=== PATIENT | female | born 1960 | race Caucasian/White ===

== ENCOUNTER 2018-07-20 12:26 | Inpatient (IN) | payer OTHER, SELFPAY ==
[2018-07-20] VITALS (16 sets, daily range): BP systolic 96–138; BP diastolic 35–75; PULSE 54–83; RESP 12–23; TEMP 36.1–37.8; O2SAT 94–100; BMI 19.5
--- NOTE | 2018-07-20 | PATH_ITS ---
[facility] Accession Number: [id number] . 01 Material submitted: . ILEOCECECTOMY . 02 Diagnosis: Colon, Ileocecectomy: 1. Colon with flat, pale edematous mucosa and mild reactive epithelial changes, consistent with changes secondary to volvulus. 2. Serrated lesion, favor sessile serrated adenoma. 3. Appendix with no diagnostic abnormality. 4. Negative for active, chronic and microscopic colitis. 5. Negative for malignancy. V/07/27/2018 . 02 Electronically signed: . Doris Montanez MD, Pathologist NPI- [id number] . 01 Gross description: . Received in formalin, labeled ileocecectomy, is a portion of terminal ileum (length-4.0 cm, proximal diameter-2.4 cm), ileocecal valve, cecum and ascending colon (length-12.3 cm, distal dimeter-5.4 cm), attached appendix (length-5.8 cm, diameter-0.6 cm), and attached adipose tissue (up to 2.0 cm in depth). The resection margins are received stapled. The mucosa is rodas with normal folds and focally flat areas. The appendix is unremarkable. The serosa is pale rodas. No nodules, masses or lesions are identified. Multiple lymph nodes (0.2 cm-1.0 cm) are identified. The resection margins are inked black. Section code: (A1) proximal resection margin, longitudinal section loan representative; (A2) distal resection margin, longitudinal resection margin loan representative; (A3) terminal ileum, loan representative serial sections; (A4) ileocecal valve, perpendicular loan representative sections; (A5-A8) cecum and ascending colon, loan representative serial sections submitted proximal to distal; (A9) appendix, loan representative; (A10) multiple intact lymph nodes; (A11) one bisected lymph node. ([id number]) (A12) 1 cm serrated polp. /MRV . 02 Pathologist provided ICD-10: K56.2, D12.6 . 02 CPT . 329550 Performed at: 01 [facility] [address] [id number] MD Tian Carter MD Phone: [phone] Performed at: 02 [facility] [id number] [place] [address] [id number] MD Doris Montanez MD Phone: [phone]
--- NOTE | 2018-07-20 13:01 | ED.ABDPAIN ---
HPI - Abdominal Pain <[facility] - Last Filed: 07/20/18 18:42> General Chief Complaint: Abdominal Pain Stated Complaint: ABDOMINAL CRAMPS Time Seen by Provider: 07/20/18 12:51 Source: patient Mode of arrival: ambulatory Limitations: no limitations History of Present Illness HPI narrative: Patient is a 57-year-old female current everyday smoker who denies any medical history who presents with a chief complaint of severe abdominal pain that waxes and wanes since exam. She states that she is having abdominal spasms and when they hit their tendon of 10 pain. She denies any fevers, nausea vomiting. She states she had diarrhea this morning, otherwise bowel movements about every day. She has not taken anything at home for pain. She denies any abdominal history. She denies any chest pain or shortness of breath. She describes the pain as severe 10/10 when it hits. She states it is stabbing and cramping. She denies any radiation. She denies any dysuria urgency or frequency. She is postmenopausal and has not had a menstrual cycle for 8 years. Related Data Home Medications Medication Instructions Recorded Confirmed No Known Home Medications 07/20/18 07/20/18 Allergies Allergy/AdvReac Type Severity Reaction Status Date / Time No Known Drug Allergies Allergy Verified 07/20/18 17:26 [facility] of Systems [facility] Last Filed: 07/20/18 18:42> Review of Systems GENERAL: Denies chills, fatigue, malaise, fever, sweats. HEENT: Denies sinus pain, ear pain, sore throat, difficulty swallowing, dizziness. RESPIRATORY: Denies dyspnea, cough, wheezing, hemoptysis, sputum. CARDIOVASCULAR: Denies chest pain, palpitations, orthopnea, edema, GASTROINTESTINAL: See HPI : Denies dysuria, frequency, incontinence, hematuria, urinary retention. MUSCULOSKELETAL: denies weakness, joint pain, or bony pain SKIN: Denies rash, skin lesions, or other NEUROLOGIC: Denies weakness, headache, numbness, change in speech, confusion, seizures, incoordination. PSYCHIATRIC: No concerning psychosocial issues. 12 point review of systems is negative except for those stated above PFSH <[facility] - Last Filed: 07/20/18 18:42> Medical History No significant past medical history (Acute) No significant past surgical history (Acute) Tobacco use (Acute) Social History Smoking Status: Current every day smoker Social History Smoking Status: Current every day smoker Exam <GRANT Hull - Last Filed: 07/20/18 18:42> Narrative Exam Narrative: GENERAL: Thin female pacing room, bent over HEAD: Atraumatic. Normocephalic. No temporal or scalp tenderness. EYES: Pupils equal round and reactive. Extraocular motions intact. No scleral icterus. No injection or drainage. ENT: Nose without bleeding, purulent drainage or septal hematoma. Throat without erythema, tonsillar hypertrophy or exudate. Uvula midline. Airway patent. NECK: Trachea midline. No JVD or lymphadenopathy. Supple, nontender, no meningeal signs. CARDIOVASCULAR: Regular rate and rhythm without murmurs, gallops, or rubs. RESPIRATORY: Clear to auscultation. Breath sounds equal bilaterally. No wheezes, rales, or rhonchi. GASTROINTESTINAL: Abdomen flat. Painful to palpation all quadrants. Active bowel sounds all 4 quadrants. EXTREMITIES: No clubbing, cyanosis, or edema. No joint tenderness, effusion, or edema noted. BACK: Nontender without deformity or crepitance. No flank tenderness. NEURO: AOx3. SKIN: No rash or erythema. Initial Vital Signs Initial Vital Signs: Vital Signs Temperature 98.1 F 07/20/18 12:30 Pulse Rate 62 07/20/18 12:30 Respiratory Rate 14 07/20/18 12:30 Blood Pressure 121/50 L 07/20/18 12:30 Pulse Oximetry 100 07/20/18 12:30 <Renetta Neff DO - Last Filed: 07/20/18 19:14> Initial Vital Signs Initial Vital Signs: Vital Signs Temperature 98.1 F 07/20/18 12:30 Pulse Rate 62 07/20/18 12:30 Respiratory Rate 14 07/20/18 12:30 Blood Pressure 121/50 L 07/20/18 12:30 Pulse Oximetry 100 07/20/18 12:30 Course <Sri Hollis, WIRELESS NETWORK ENGINEER-BC - Last Filed: 07/20/18 18:42> Course Narrative: I checked on the patient several times throughout her stay in the emergency department. She was given several doses of morphine for pain control. She remains nontoxic and hemodynamically stable throughout her stay in the emergency department. Orders Ordered: ED Orders 07/20/18 12:46 Urine Culture Stat Urine Microscopic Stat 07/20/18 13:00 EKG-12 Lead Stat 07/20/18 13:25 Amylase Stat Complete Blood Count AUTO DIFF Stat Comprehensive Metabolic Panel Stat HCG Quantitative Stat Lipase Stat Troponin & CK Cardiac Panel Stat 07/20/18 13:41 Lactate (Lactic Acid) Stat 07/20/18 14:58 CT abdomen pelvis w con Stat 07/20/18 17:25 Type and Screen Stat Education, smoking cessation ONGOING Hydromorphone HCl (Dilaudid) 0.25 mg IV Q5MIN PRN PRN Reason: Pain, Mild (1-3) Hydromorphone HCl (Dilaudid) 1 mg IV Q5MIN PRN PRN Reason: Pain, Severe (7-10) Hydromorphone HCl (Dilaudid) 0.5 mg IV Q5MIN PRN PRN Reason: Pain, Moderate (4-6) Sodium Chloride (Normal Saline 0.9%) 1,000 mls @ 150 mls/hr IV CONT YOSELYN Last Infusion: 07/20/18 17:25 Dose: 0 mls/hr Admin: 07/20/18 13:43 Dose: 150 mls/hr Sodium Chloride (Normal Saline 0.9%) 1,000 mls @ 100 mls/hr IV CONT YOSELYN Lactated Ringer's (Lactated Ringers) 1,000 mls @ 42 mls/hr IV NOW ONE Stop: 07/21/18 17:24 Last Admin: 07/20/18 17:36 Dose: 42 mls/hr Meperidine HCl (Demerol) 25 mg IV Q5MIN PRN PRN Reason: Pain or shivering Discontinued Medications Bupivacaine HCl (Sensorcaine 0.5% (Pf)) 30 ml INJ NOW ONE Stop: 07/20/18 18:56 Last Admin: 07/20/18 18:56 Dose: 30 ml Fentanyl (Sublimaze) 50 mcg IV NOW ONE Stop: 07/20/18 17:34 Last Admin: 07/20/18 17:33 Dose: 50 mcg Cefotetan Disodium/Dextrose (Cefotan) 2 gm in 50 mls @ 100 mls/hr IV NOW ONE Stop: 07/20/18 17:54 Last Infusion: 07/20/18 18:00 Dose: 0 mls/hr Admin: 07/20/18 17:55 Dose: 100 mls/hr Morphine Sulfate (Morphine) 2 mg IV NOW ONE Stop: 07/20/18 13:01 Last Admin: 07/20/18 13:43 Dose: 2 mg Morphine Sulfate (Morphine) 2 mg IV NOW ONE Stop: 07/20/18 15:43 Last Admin: 07/20/18 15:43 Dose: 2 mg Morphine Sulfate (Morphine) 2 mg IV NOW ONE Stop: 07/20/18 17:14 Last Admin: 07/20/18 17:15 Dose: 2 mg Ondansetron HCl (Zofran) 4 mg IV NOW ONE Stop: 07/20/18 13:01 Last Admin: 07/20/18 13:43 Dose: 4 mg Consultations Consultation #1: Given the patient's CT results, I spoke with Dr. Gutierrez from surgery who kindly agreed to admit the patient after evaluating her. Time: 16:00 Vital Signs - 8 hr 07/20/18 12:30 07/20/18 13:49 07/20/18 15:35 Temperature 98.1 F Pulse Rate 62 54 L 60 Respiratory Rate 14 15 18 Blood Pressure 121/50 L Blood Pressure [Left Arm] 137/66 Blood Pressure [Right Arm] 129/69 Pulse Oximetry 100 100 99 07/20/18 16:39 07/20/18 17:16 07/20/18 17:34 Temperature 98.3 F 98.5 F 100.0 F H Pulse Rate 64 59 L 57 L Respiratory Rate 18 22 Blood Pressure 134/75 Blood Pressure [Left Arm] Blood Pressure [Right Arm] 97/50 L 138/60 Pulse Oximetry 98 100 100 <Renetta Neff, - Last Filed: 07/20/18 19:14> Orders Ordered: ED Orders 07/20/18 12:46 Urine Culture Stat Urine Microscopic Stat 07/20/18 13:00 EKG-12 Lead Stat 07/20/18 13:25 Amylase Stat Complete Blood Count AUTO DIFF Stat Comprehensive Metabolic Panel Stat HCG Quantitative Stat Lipase Stat Troponin & CK Cardiac Panel Stat 07/20/18 13:41 Lactate (Lactic Acid) Stat 07/20/18 14:58 CT abdomen pelvis w con Stat 07/20/18 17:25 Type and Screen Stat Education, smoking cessation ONGOING Hydromorphone HCl (Dilaudid) 0.25 mg IV Q5MIN PRN PRN Reason: Pain, Mild (1-3) Hydromorphone HCl (Dilaudid) 1 mg IV Q5MIN PRN PRN Reason: Pain, Severe (7-10) Hydromorphone HCl (Dilaudid) 0.5 mg IV Q5MIN PRN PRN Reason: Pain, Moderate (4-6) Sodium Chloride (Normal Saline 0.9%) 1,000 mls @ 150 mls/hr IV CONT YOSELYN Last Infusion: 07/20/18 17:25 Dose: 0 mls/hr Admin: 07/20/18 13:43 Dose: 150 mls/hr Sodium Chloride (Normal Saline 0.9%) 1,000 mls @ 100 mls/hr IV CONT YOSELYN Lactated Ringer's (Lactated Ringers) 1,000 mls @ 42 mls/hr IV NOW ONE Stop: 07/21/18 17:24 Last Admin: 07/20/18 17:36 Dose: 42 mls/hr Meperidine HCl (Demerol) 25 mg IV Q5MIN PRN PRN Reason: Pain or shivering Discontinued Medications Bupivacaine HCl (Sensorcaine 0.5% (Pf)) 30 ml INJ NOW ONE Stop: 07/20/18 18:56 Last Admin: 07/20/18 18:56 Dose: 30 ml Fentanyl (Sublimaze) 50 mcg IV NOW ONE Stop: 07/20/18 17:34 Last Admin: 07/20/18 17:33 Dose: 50 mcg Cefotetan Disodium/Dextrose (Cefotan) 2 gm in 50 mls @ 100 mls/hr IV NOW ONE Stop: 07/20/18 17:54 Last Infusion: 07/20/18 18:00 Dose: 0 mls/hr Admin: 07/20/18 17:55 Dose: 100 mls/hr Morphine Sulfate (Morphine) 2 mg IV NOW ONE Stop: 07/20/18 13:01 Last Admin: 07/20/18 13:43 Dose: 2 mg Morphine Sulfate (Morphine) 2 mg IV NOW ONE Stop: 07/20/18 15:43 Last Admin: 07/20/18 15:43 Dose: 2 mg Morphine Sulfate (Morphine) 2 mg IV NOW ONE Stop: 07/20/18 17:14 Last Admin: 07/20/18 17:15 Dose: 2 mg Ondansetron HCl (Zofran) 4 mg IV NOW ONE Stop: 07/20/18 13:01 Last Admin: 07/20/18 13:43 Dose: 4 mg Vital Signs - 8 hr 07/20/18 12:30 07/20/18 13:49 07/20/18 15:35 Temperature 98.1 F Pulse Rate 62 54 L 60 Respiratory Rate 14 15 18 Blood Pressure 121/50 L Blood Pressure [Left Arm] 137/66 Blood Pressure [Right Arm] 129/69 Pulse Oximetry 100 100 99 07/20/18 16:39 07/20/18 17:16 07/20/18 17:34 Temperature 98.3 F 98.5 F 100.0 F H Pulse Rate 64 59 L 57 L Respiratory Rate 18 22 Blood Pressure 134/75 Blood Pressure [Left Arm] Blood Pressure [Right Arm] 97/50 L 138/60 Pulse Oximetry 98 100 100 MDM - Abdominal Pain <JEAN HullP- - Last Filed: 07/20/18 18:42> Lab Data Result diagrams: 07/20/18 13:25 07/20/18 13:25 Lab Results 07/20/18 07/20/18 07/20/18 Range/Units 12:46 13:25 13:25 WBC 10.8 (4.5-11.0) X10^3/uL RBC 3.89 L (4.0-5.2) X10^6/uL Hgb 12.4 (12.0-16.0) g/dL Hct 36.8 (36-46) % MCV 94.6 (80-100) fL MCH 31.8 (26-34) PG MCHC 33.6 (30-36) % RDW 14.0 (11.6-14.8) % Plt Count 271 (150-400) X10^3/uL Neut % (Auto) 73.1 (50-75) % Lymph % (Auto) 16.7 L (25-40) % [place] % (Auto) 7.3 (3-14) % Eos % (Auto) 2.4 (2-4) % Baso % (Auto) 0.5 (0-2) % Neut # (Auto) 7900 H (2709-6312) /uL Lymph # (Auto) 1800 (4332-0675) /uL [place] # (Auto) 800 (0-900) /uL Eos # (Auto) 300 (0-450) /uL Baso # (Auto) 100 (0-100) /uL Sodium 137 (137-145) mmol/L Potassium 4.4 (3.4-5.1) mmol/L Chloride 101 (98-107) mmol/L Carbon Dioxide 26 (22-32) mmol/L BUN 14 (7-17) mg/dL Creatinine 0.80 (0.52-1.04) mg/dL Estimated GFR > 60.0 (>60) mL/min BUN/Creatinine Ratio 17.5 (6-22) Glucose 103 H (70-100) mg/dL Lactate (0.7-2.1) mmol/L Calcium 9.3 (8.4-10.2) mg/dL Total Bilirubin 0.5 (0.2-1.3) mg/dL AST 36 (14-36) IU/L ALT 36 (9-52) IU/L Alkaline Phosphatase 70 (38-126) U/L Total Creatine Kinase 125 (30-135) U/L CK-MB (CK-2) 2.05 (<2.37) ng/mL CK-MB (CK-2) Rel Index 1.6 (1.5-5.0) % Troponin I < 0.012 (0.01-0.034) ng/mL Total Protein 7.2 (6.3-8.2) g/dL Albumin 4.5 (3.5-5.0) g/dL Globulin 2.7 (1.7-4.1) g/dL Albumin/Globulin Ratio 1.7 (1.0-2.8) Amylase 222 H (30-110) U/L Lipase 257 (23-300) U/L HCG, Quant mIU/mL Urine RBC None seen (0-5/HPF) Urine WBC 1-5/hpf (0-5/HPF) Ur Squamous Epith Cells 1-5 /hpf Amorphous Sediment 1+ Urine Bacteria Few (2-10) H (None) Urine Mucus 1+ H (Negative) Ur Culture Indicated? Specimen cultured Blood Type Antibody Screen 07/20/18 07/20/18 07/20/18 Range/Units 13:25 13:41 17:25 WBC (4.5-11.0) X10^3/uL RBC (4.0-5.2) X10^6/uL Hgb (12.0-16.0) g/dL Hct (36-46) % MCV (80-100) fL MCH (26-34) PG MCHC (30-36) % RDW (11.6-14.8) % Plt Count (150-400) X10^3/uL Neut % (Auto) (50-75) % Lymph % (Auto) (25-40) % [place] % (Auto) (3-14) % Eos % (Auto) (2-4) % Baso % (Auto) (0-2) % Neut # (Auto) (7689-6016) /uL Lymph # (Auto) (5587-2296) /uL [place] # (Auto) (0-900) /uL Eos # (Auto) (0-450) /uL Baso # (Auto) (0-100) /uL Sodium (137-145) mmol/L Potassium (3.4-5.1) mmol/L Chloride (98-107) mmol/L Carbon Dioxide (22-32) mmol/L BUN (7-17) mg/dL Creatinine (0.52-1.04) mg/dL Estimated GFR (>60) mL/min BUN/Creatinine Ratio (6-22) Glucose (70-100) mg/dL Lactate 0.8 (0.7-2.1) mmol/L Calcium (8.4-10.2) mg/dL Total Bilirubin (0.2-1.3) mg/dL AST (14-36) IU/L ALT (9-52) IU/L Alkaline Phosphatase (38-126) U/L Total Creatine Kinase (30-135) U/L CK-MB (CK-2) (<2.37) ng/mL CK-MB (CK-2) Rel Index (1.5-5.0) % Troponin I (0.01-0.034) ng/mL Total Protein (6.3-8.2) g/dL Albumin (3.5-5.0) g/dL Globulin (1.7-4.1) g/dL Albumin/Globulin Ratio (1.0-2.8) Amylase (30-110) U/L Lipase (23-300) U/L HCG, Quant < 2.39 mIU/mL Urine RBC (0-5/HPF) Urine WBC (0-5/HPF) Ur Squamous Epith Cells Amorphous Sediment Urine Bacteria (None) Urine Mucus (Negative) Ur Culture Indicated? Blood Type O Positive Antibody Screen Negative Point of care testing: Point of Care Testing Test Results Negative Urine Dip Bedside Urine Glucose Negative Bedside Urine Bilirubin + 1 Bedside Urine Ketone +/- 5 Urine Specific [place] 1.030 Bedside Urine Occult Blood - Negative Bedside Urine pH 6.0 Bedside Urine Protein + 30 Bedside Urine Urobilinogen +/- 1mg Bedside Urine Nitrite - Negative Bedside Urine Leukocytes +/- [address] scan - abdomen: Radiologist's impression: [place] [address] CT Scan Report Signed Patient: Inés Astorga EMR#: [id number] : 1960Acct:[id number] Age/Sex: 57 / FDate of Service: 07/20/18 Loc: ED Accession Number: [id number] Procedure: CT abdomen pelvis w con Ordering Provider: Sri Hollis WIRELESS NETWORK ENGINEER- PROCEDURE: CT ABDOMEN PELVIS W CON INDICATIONS: abd pain TECHNIQUE: After the administration of intravenous contrast, 5 mm thick sections acquired from the diaphragm to the symphysis. 5 mm coronal and sagittal reformats were acquired. For radiation dose reduction, the following was used: automated exposure control, adjustment of mA and/or kV according to patient size. COMPARISON: None. FINDINGS: Image quality: Excellent. ABDOMEN: Lung bases: Lung bases are clear. Heart size is normal. Solid organs: Liver is normal in size and enhancement. Gallbladder wall does not appear thickened. Biliary system is non dilated. Pancreas enhances normally. Spleen is normal in size and enhancement. No adrenal nodules. Kidneys demonstrate normal size and enhancement, without hydronephrosis. Peritoneum and bowel: There is a grossly dilated loop of colon seen within the left abdomen that measures nearly 13 cm transversely. The ileocecal valve can be seen along the inferomedial aspect of this loop of bowel, as on series 4 image 29. Prominent loops of distal small bowel are seen at measured 2.3 cm. There is a mild degree of layering free fluid seen within the pelvis. No free air is seen. Nodes and vessels: No retroperitoneal or mesenteric adenopathy by size criteria. Aorta and inferior vena cava are normal in size. Miscellaneous: No ventral hernias. PELVIS: Genitourinary: Bladder wall thickness is normal. Miscellaneous: No inguinal hernias or adenopathy. Bones: No suspicious bony lesions. No vertebral body compression fractures. Focal L5-S1 degenerative change is seen. Milder degenerative changes are seen elsewhere. 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 A surgical consultation is recommended. There is prominence of small bowel loops seen, which is likely related to the degree of functional obstruction. A small amount of free pelvic fluid is seen. Dictated by: Mike Perez M.D. on 07/20/2018 at 14:21 Approved by: Mike Perez M.D. on 07/20/2018 at 14:26 ECG Data Attestation: I personally reviewed and interpreted this ECG as follows: Interpretation: Sinus bradycardia. Ventricular rate 53. No ectopy. No ST elevation or depression. AR 184 MDM Narrative Medical decision making narrative: The patient is a 57-year-old female with lack of medical history who presents with a chief complaint of abdominal pain. CT found a cecal volvulus. She was hemodynamically stable throughout her stay in the emergency department. However given the CT results, I contacted Dr. Gutierrez from surgery who came to evaluate the patient admitted her. She was given IV fluids, Zofran and morphine throughout her stay in the emergency department. Her last oral intake was last night according the patient. Patient was admitted without incident. <Renetta Neff, - Last Filed: 07/20/18 19:14> Lab Data Lab Results 07/20/18 07/20/18 07/20/18 Range/Units 12:46 13:25 13:25 WBC 10.8 (4.5-11.0) X10^3/uL RBC 3.89 L (4.0-5.2) X10^6/uL Hgb 12.4 (12.0-16.0) g/dL Hct 36.8 (36-46) % MCV 94.6 (80-100) fL MCH 31.8 (26-34) PG MCHC 33.6 (30-36) % RDW 14.0 (11.6-14.8) % Plt Count 271 (150-400) X10^3/uL Neut % (Auto) 73.1 (50-75) % Lymph % (Auto) 16.7 L (25-40) % [place] % (Auto) 7.3 (3-14) % Eos % (Auto) 2.4 (2-4) % Baso % (Auto) 0.5 (0-2) % Neut # (Auto) 7900 H (4348-8414) /uL Lymph # (Auto) 1800 (5494-8176) /uL [place] # (Auto) 800 (0-900) /uL Eos # (Auto) 300 (0-450) /uL Baso # (Auto) 100 (0-100) /uL Sodium 137 (137-145) mmol/L Potassium 4.4 (3.4-5.1) mmol/L Chloride 101 (98-107) mmol/L Carbon Dioxide 26 (22-32) mmol/L BUN 14 (7-17) mg/dL Creatinine 0.80 (0.52-1.04) mg/dL Estimated GFR > 60.0 (>60) mL/min BUN/Creatinine Ratio 17.5 (6-22) Glucose 103 H (70-100) mg/dL Lactate (0.7-2.1) mmol/L Calcium 9.3 (8.4-10.2) mg/dL Total Bilirubin 0.5 (0.2-1.3) mg/dL AST 36 (14-36) IU/L ALT 36 (9-52) IU/L Alkaline Phosphatase 70 (38-126) U/L Total Creatine Kinase 125 (30-135) U/L CK-MB (CK-2) 2.05 (<2.37) ng/mL CK-MB (CK-2) Rel Index 1.6 (1.5-5.0) % Troponin I < 0.012 (0.01-0.034) ng/mL Total Protein 7.2 (6.3-8.2) g/dL Albumin 4.5 (3.5-5.0) g/dL Globulin 2.7 (1.7-4.1) g/dL Albumin/Globulin Ratio 1.7 (1.0-2.8) Amylase 222 H (30-110) U/L Lipase 257 (23-300) U/L HCG, Quant mIU/mL Urine RBC None seen (0-5/HPF) Urine WBC 1-5/hpf (0-5/HPF) Ur Squamous Epith Cells 1-5 /hpf Amorphous Sediment 1+ Urine Bacteria Few (2-10) H (None) Urine Mucus 1+ H (Negative) Ur Culture Indicated? Specimen cultured Blood Type Antibody Screen 07/20/18 07/20/18 07/20/18 Range/Units 13:25 13:41 17:25 WBC (4.5-11.0) X10^3/uL RBC (4.0-5.2) X10^6/uL Hgb (12.0-16.0) g/dL Hct (36-46) % MCV (80-100) fL MCH (26-34) PG MCHC (30-36) % RDW (11.6-14.8) % Plt Count (150-400) X10^3/uL Neut % (Auto) (50-75) % Lymph % (Auto) (25-40) % [place] % (Auto) (3-14) % Eos % (Auto) (2-4) % Baso % (Auto) (0-2) % Neut # (Auto) (4623-6554) /uL Lymph # (Auto) (2268-7167) /uL [place] # (Auto) (0-900) /uL Eos # (Auto) (0-450) /uL Baso # (Auto) (0-100) /uL Sodium (137-145) mmol/L Potassium (3.4-5.1) mmol/L Chloride (98-107) mmol/L Carbon Dioxide (22-32) mmol/L BUN (7-17) mg/dL Creatinine (0.52-1.04) mg/dL Estimated GFR (>60) mL/min BUN/Creatinine Ratio (6-22) Glucose (70-100) mg/dL Lactate 0.8 (0.7-2.1) mmol/L Calcium (8.4-10.2) mg/dL Total Bilirubin (0.2-1.3) mg/dL AST (14-36) IU/L ALT (9-52) IU/L Alkaline Phosphatase (38-126) U/L Total Creatine Kinase (30-135) U/L CK-MB (CK-2) (<2.37) ng/mL CK-MB (CK-2) Rel Index (1.5-5.0) % Troponin I (0.01-0.034) ng/mL Total Protein (6.3-8.2) g/dL Albumin (3.5-5.0) g/dL Globulin (1.7-4.1) g/dL Albumin/Globulin Ratio (1.0-2.8) Amylase (30-110) U/L Lipase (23-300) U/L HCG, Quant < 2.39 mIU/mL Urine RBC (0-5/HPF) Urine WBC (0-5/HPF) Ur Squamous Epith Cells Amorphous Sediment Urine Bacteria (None) Urine Mucus (Negative) Ur Culture Indicated? Blood Type O Positive Antibody Screen Negative Point of care testing: Point of Care Testing Test Results Negative Urine Dip Bedside Urine Glucose Negative Bedside Urine Bilirubin + 1 Bedside Urine Ketone +/- 5 Urine Specific [place] 1.030 Bedside Urine Occult Blood - Negative Bedside Urine pH 6.0 Bedside Urine Protein + 30 Bedside Urine Urobilinogen +/- 1mg Bedside Urine Nitrite - Negative Bedside Urine Leukocytes +/- 15 Esterase Discharge Plan Departure Patient Disposition: Admitted As Inpatient Clinical Impression: Cecal volvulus Discharge Date/Time: 07/20/18 17:21 Interventions: ED Discharge Assessment Last Done: 07/20/18 17:21 Admit Date/Time: 07/20/18 16:32 Admit Provider: Rayshawn Gutierrez <Renetta Neff DO - Last Filed: 07/20/18 19:14> Cosign ED Attending Cosleiaature Attestation: I was immediately available in the department for consultation. Documentation has been reviewed. I agree with assessment and plan.
[2018-07-20 13:03] LABS: RBC Urine None Seen (0-5/HPF)
--- NOTE | 2018-07-20 13:04 | ED_ITS ---
HPI - Abdominal Pain [facility] Last Filed: 07/20/18 18:42> General Chief Complaint: Abdominal Pain Stated Complaint: ABDOMINAL CRAMPS Time Seen by Provider: 07/20/18 12:51 Source: patient Mode of arrival: ambulatory Limitations: no limitations History of Present Illness HPI narrative: Patient is a 57-year-old female current everyday smoker who denies any medical history who presents with a chief complaint of severe abdominal pain that waxes and wanes since exam. She states that she is having abdominal spasms and when they hit their tendon of 10 pain. She denies any fev ers, nausea vomiting. She states she had diarrhea this morning, otherwise bowel movements about every day. She has not taken anything at home for pain. She denies any abdominal history. She denies any chest pain or shortness of breath. She describes the pain as severe 10/10 when it hits. She states it is stabbing and cramping. She denies any radiation. She denies any dysuria urgency or frequency. She is postmenopausal and has not had a menstrual cycle for 8 years. Related Data Home Medications Medication Instructions Recorded Confirmed No Known Home Medications 07/20/18 07/20/18 Allergies Allergy/AdvReac Type Severity Reaction Status Date / Time No Known Drug Allergies Allergy Verified 07/20/18 17:26 Review of Systems <[facility] Last Filed: 07/20/18 18:42> Review of Systems GENERAL: Denies chills, fatigue, malaise, fever, sweats. HEENT: Denies sinus pain, ear pain, sore throat, difficulty swallowing, dizziness. RESPIRATORY: Denies dyspnea, cough, wheezing, hemoptysis, sputum. CARDIOVASCULAR: Denies chest pain, palpitations, orthopnea, edema, GASTROINTESTINAL: See HPI : Denies dysuria, frequency, incontinence, hematuria, urinary retention. MUSCULOSKELETAL: denies weakness, joint pain, or bony pain SKIN: Denies rash, skin lesions, or other NEUROLOGIC: Denies weakness, headache, numbness, change in speech, confusion, seizures, incoordination. PSYCHIATRIC: No concerning psychosocial issues. 12 point review of systems is negative except for those stated above PFSH <[facility] Last Filed: 07/20/18 18:42> Medical History No significant past medical history (Acute) No significant past surgical history (Acute) Tobacco use (Acute) Social History Smoking Status: Current every day smoker Social History Smoking Status: Current every day smoker Exam <GRANT Hull - Last Filed: 07/20/18 18:42> Narrative Exam Narrative: GENERAL: Thin female pacing room, bent over HEAD: Atraumatic. Normocephalic. No temporal or scalp tenderness. EYES: Pupils equal round and reactive. Extraocular motions intact. No scleral icterus. No injection or drainage. ENT: Nose without bleeding, purulent drainage or septal hematoma. Throat without erythema, tonsillar hypertrophy or exudate. Uvula midline. Airway patent. NECK: Trachea midline. No JVD or lymphadenopathy. Supple, nontender, no meningeal signs. CARDIOVASCULAR: Regular rate and rhythm without murmurs, gallops, or rubs. RESPIRATORY: Clear to auscultation. Breath sounds equal bilaterally. No wheezes, rales, or rhonchi. GASTROINTESTINAL: Abdomen flat. Painful to palpation all quadrants. Active bowel sounds all 4 quadrants. EXTREMITIES: No clubbing, cyanosis, or edema. No joint tenderness, effusion, or edema noted. BACK: Nontender without deformity or crepitance. No flank tenderness. NEURO: AOx3. SKIN: No rash or erythema. Initial Vital Signs Initial Vital Signs: Vital Signs Temperature 98.1 F 07/20/18 12:30 Pulse Rate 62 07/20/18 12:30 Respiratory Rate 14 07/20/18 12:30 Blood Pressure 121/50 L 07/20/18 12:30 Pulse Oximetry 100 07/20/18 12:30 <Renetta Neff DO - Last Filed: 07/20/18 19:14> Initial Vital Signs Initial Vital Signs: Vital Signs Temperature 98.1 F 07/20/18 12:30 Pulse Rate 62 07/20/18 12:30 Respiratory Rate 14 07/20/18 12:30 Blood Pressure 121/50 L 07/20/18 12:30 Pulse Oximetry 100 07/20/18 12:30 Course <Sri Hollis, [employer] - Last Filed: 07/20/18 18:42> Course Narrative: I checked on the patient several times throughout her stay in the emergency department. She was given several doses of morphine for pain control. She remains nontoxic and hemodynamically stable throughout her stay in the emergency department. Orders Ordered: ED Orders 07/20/18 12:46 Urine Culture Stat Urine Microscopic Stat 07/20/18 13:00 EKG-12 Lead Stat 07/20/18 13:25 Amylase Stat Complete Blood Count AUTO DIFF Stat Comprehensive Metabolic Panel Stat HCG Quantitative Stat Lipase Stat Troponin & CK Cardiac Panel Stat 07/20/18 13:41 Lactate (Lactic Acid) Stat 07/20/18 14:58 CT abdomen pelvis w con Stat 07/20/18 17:25 Type and Screen Stat Education, smoking cessation ONGOING Hydromorphone HCl (Dilaudid) 0.25 mg IV Q5MIN PRN PRN Reason: Pain, Mild (1-3) Hydromorphone HCl (Dilaudid) 1 mg IV Q5MIN PRN PRN Reason: Pain, Severe (7-10) Hydromorphone HCl (Dilaudid) 0.5 mg IV Q5MIN PRN PRN Reason: Pain, Moderate (4-6) Sodium Chloride (Normal Saline 0.9%) 1,000 mls @ 150 mls/hr IV CONT YOSELYN Last Infusion: 07/20/18 17:25 Dose: 0 mls/hr Admin: 07/20/18 13:43 Dose: 150 mls/hr Sodium Chloride (Normal Saline 0.9%) 1,000 mls @ 100 mls/hr IV CONT YOSELYN Lactated Ringer's (Lactated Ringers) 1,000 mls @ 42 mls/hr IV NOW ONE Stop: 07/21/18 17:24 Last Admin: 07/20/18 17:36 Dose: 42 mls/hr Meperidine HCl (Demerol) 25 mg IV Q5MIN PRN PRN Reason: Pain or shivering Discontinued Medications Bupivacaine HCl (Sensorcaine 0.5% (Pf)) 30 ml INJ NOW ONE Stop: 07/20/18 18:56 Last Admin: 07/20/18 18:56 Dose: 30 ml Fentanyl (Sublimaze) 50 mcg IV NOW ONE Stop: 07/20/18 17:34 Last Admin: 07/20/18 17:33 Dose: 50 mcg Cefotetan Disodium/Dextrose (Cefotan) 2 gm in 50 mls @ 100 mls/hr IV NOW ONE Stop: 07/20/18 17:54 Last Infusion: 07/20/18 18:00 Dose: 0 mls/hr Admin: 07/20/18 17:55 Dose: 100 mls/hr Morphine Sulfate (Morphine) 2 mg IV NOW ONE Stop: 07/20/18 13:01 Last Admin: 07/20/18 13:43 Dose: 2 mg Morphine Sulfate (Morphine) 2 mg IV NOW ONE Stop: 07/20/18 15:43 Last Admin: 07/20/18 15:43 Dose: 2 mg Morphine Sulfate (Morphine) 2 mg IV NOW ONE Stop: 07/20/18 17:14 Last Admin: 07/20/18 17:15 Dose: 2 mg Ondansetron HCl (Zofran) 4 mg IV NOW ONE Stop: 07/20/18 13:01 Last Admin: 07/20/18 13:43 Dose: 4 mg Consultations Consultation #1: Given the patient's CT results, I spoke with Dr. Gutierrez from surgery who kindly agreed to admit the patient after evaluating her. Time: 16:00 Vital Signs - 8 hr 07/20/18 12:30 07/20/18 13:49 07/20/18 15:35 Temperature 98.1 F Pulse Rate 62 54 L 60 Respiratory Rate 14 15 18 Blood Pressure 121/50 L Blood Pressure [Left Arm] 137/66 Blood Pressure [Right Arm] 129/69 Pulse Oximetry 100 100 99 07/20/18 16:39 07/20/18 17:16 07/20/18 17:34 Temperature 98.3 F 98.5 F 100.0 F H Pulse Rate 64 59 L 57 L Respiratory Rate 18 22 Blood Pressure 134/75 Blood Pressure [Left Arm] Blood Pressure [Right Arm] 97/50 L 138/60 Pulse Oximetry 98 100 100 <Renetta Neff, - Last Filed: 07/20/18 19:14> Orders Ordered: ED Orders 07/20/18 12:46 Urine Culture Stat Urine Microscopic Stat 07/20/18 13:00 EKG-12 Lead Stat 07/20/18 13:25 Amylase Stat Complete Blood Count AUTO DIFF Stat Comprehensive Metabolic Panel Stat HCG Quantitative Stat Lipase Stat Troponin & CK Cardiac Panel Stat 07/20/18 13:41 Lactate (Lactic Acid) Stat 07/20/18 14:58 CT abdomen pelvis w con Stat 07/20/18 17:25 Type and Screen Stat Education, smoking cessation ONGOING Hydromorphone HCl (Dilaudid) 0.25 mg IV Q5MIN PRN PRN Reason: Pain, Mild (1-3) Hydromorphone HCl (Dilaudid) 1 mg IV Q5MIN PRN PRN Reason: Pain, Severe (7-10) Hydromorphone HCl (Dilaudid) 0.5 mg IV Q5MIN PRN PRN Reason: Pain, Moderate (4-6) Sodium Chloride (Normal Saline 0.9%) 1,000 mls @ 150 mls/hr IV CONT YOSELYN Last Infusion: 07/20/18 17:25 Dose: 0 mls/hr Admin: 07/20/18 13:43 Dose: 150 mls/hr Sodium Chloride (Normal Saline 0.9%) 1,000 mls @ 100 mls/hr IV CONT YOSELYN Lactated Ringer's (Lactated Ringers) 1,000 mls @ 42 mls/hr IV NOW ONE Stop: 07/21/18 17:24 Last Admin: 07/20/18 17:36 Dose: 42 mls/hr Meperidine HCl (Demerol) 25 mg IV Q5MIN PRN PRN Reason: Pain or shivering Discontinued Medications Bupivacaine HCl (Sensorcaine 0.5% (Pf)) 30 ml INJ NOW ONE Stop: 07/20/18 18:56 Last Admin: 07/20/18 18:56 Dose: 30 ml Fentanyl (Sublimaze) 50 mcg IV NOW ONE Stop: 07/20/18 17:34 Last Admin: 07/20/18 17:33 Dose: 50 mcg Cefotetan Disodium/Dextrose (Cefotan) 2 gm in 50 mls @ 100 mls/hr IV NOW ONE Stop: 07/20/18 17:54 Last Infusion: 07/20/18 18:00 Dose: 0 mls/hr Admin: 07/20/18 17:55 Dose: 100 mls/hr Morphine Sulfate (Morphine) 2 mg IV NOW ONE Stop: 07/20/18 13:01 Last Admin: 07/20/18 13:43 Dose: 2 mg Morphine Sulfate (Morphine) 2 mg IV NOW ONE Stop: 07/20/18 15:43 Last Admin: 07/20/18 15:43 Dose: 2 mg Morphine Sulfate (Morphine) 2 mg IV NOW ONE Stop: 07/20/18 17:14 Last Admin: 07/20/18 17:15 Dose: 2 mg Ondansetron HCl (Zofran) 4 mg IV NOW ONE Stop: 07/20/18 13:01 Last Admin: 07/20/18 13:43 Dose: 4 mg Vital Signs - 8 hr 07/20/18 12:30 07/20/18 13:49 07/20/18 15:35 Temperature 98.1 F Pulse Rate 62 54 L 60 Respiratory Rate 14 15 18 Blood Pressure 121/50 L Blood Pressure [Left Arm] 137/66 Blood Pressure [Right Arm] 129/69 Pulse Oximetry 100 100 99 07/20/18 16:39 07/20/18 17:16 07/20/18 17:34 Temperature 98.3 F 98.5 F 100.0 F H Pulse Rate 64 59 L 57 L Respiratory Rate 18 22 Blood Pressure 134/75 Blood Pressure [Left Arm] Blood Pressure [Right Arm] 97/50 L 138/60 Pulse Oximetry 98 100 100 MDM - Abdominal Pain <LIOR [facility] - Last Filed: 07/20/18 18:42> Lab Data Result diagrams: 07/20/18 13:25 07/20/18 13:25 Lab Results 07/20/18 07/20/18 07/20/18 Range/Units 12:46 13:25 13:25 WBC 10.8 (4.5-11.0) X10^3/uL RBC 3.89 L (4.0-5.2) X10^6/uL Hgb 12.4 (12.0-16.0) g/dL Hct 36.8 (36-46) % MCV 94.6 (80-100) fL MCH 31.8 (26-34) PG MCHC 33.6 (30-36) % RDW 14.0 (11.6-14.8) % Plt Count 271 (150-400) X10^3/uL Neut % (Auto) 73.1 (50-75) % Lymph % (Auto) 16.7 L (25-40) % [place] % (Auto) 7.3 (3-14) % Eos % (Auto) 2.4 (2-4) % Baso % (Auto) 0.5 (0-2) % Neut # (Auto) 7900 H (6601-3058) /uL Lymph # (Auto) 1800 (5594-8486) /uL [place] # (Auto) 800 (0-900) /uL Eos # (Auto) 300 (0-450) /uL Baso # (Auto) 100 (0-100) /uL Sodium 137 (137-145) mmol/L Potassium 4.4 (3.4-5.1) mmol/L Chloride 101 (98-107) mmol/L Carbon Dioxide 26 (22-32) mmol/L BUN 14 (7-17) mg/dL Creatinine 0.80 (0.52-1.04) mg/dL Estimated GFR > 60.0 (>60) mL/min BUN/Creatinine Ratio 17.5 (6-22) Glucose 103 H (70-100) mg/dL Lactate (0.7-2.1) mmol/L Calcium 9.3 (8.4-10.2) mg/dL Total Bilirubin 0.5 (0.2-1.3) mg/dL AST 36 (14-36) IU/L ALT 36 (9-52) IU/L Alkaline Phosphatase 70 (38-126) U/L Total Creatine Kinase 125 (30-135) U/L CK-MB (CK-2) 2.05 (<2.37) ng/mL CK-MB (CK-2) Rel Index 1.6 (1.5-5.0) % Troponin I < 0.012 (0.01-0.034) ng/mL Total Protein 7.2 (6.3-8.2) g/dL Albumin 4.5 (3.5-5.0) g/dL Globulin 2.7 (1.7-4.1) g/dL Albumin/Globulin Ratio 1.7 (1.0-2.8) Amylase 222 H (30-110) U/L Lipase 257 (23-300) U/L HCG, Quant mIU/mL Urine RBC None seen (0-5/HPF) Urine WBC 1-5/hpf (0-5/HPF) Ur Squamous Epith Cells 1-5 /hpf Amorphous Sediment 1+ Urine Bacteria Few (2-10) H (None) Urine Mucus 1+ H (Negative) Ur Culture Indicated? Specimen cultured Blood Type Antibody Screen 07/20/18 07/20/18 07/20/18 Range/Units 13:25 13:41 17:25 WBC (4.5-11.0) X10^3/uL RBC (4.0-5.2) X10^6/uL Hgb (12.0-16.0) g/dL Hct (36-46) % MCV (80-100) fL MCH (26-34) PG MCHC (30-36) % RDW (11.6-14.8) % Plt Count (150-400) X10^3/uL Neut % (Auto) (50-75) % Lymph % (Auto) (25-40) % [place] % (Auto) (3-14) % Eos % (Auto) (2-4) % Baso % (Auto) (0-2) % Neut # (Auto) (0926-1406) /uL Lymph # (Auto) (7600-7410) /uL [place] # (Auto) (0-900) /uL Eos # (Auto) (0-450) /uL Baso # (Auto) (0-100) /uL Sodium (137-145) mmol/L Potassium (3.4-5.1) mmol/L Chloride (98-107) mmol/L Carbon Dioxide (22-32) mmol/L BUN (7-17) mg/dL Creatinine (0.52-1.04) mg/dL Estimated GFR (>60) mL/min BUN/Creatinine Ratio (6-22) Glucose (70-100) mg/dL Lactate 0.8 (0.7-2.1) mmol/L Calcium (8.4-10.2) mg/dL Total Bilirubin (0.2-1.3) mg/dL AST (14-36) IU/L ALT (9-52) IU/L Alkaline Phosphatase (38-126) U/L Total Creatine Kinase (30-135) U/L CK-MB (CK-2) (<2.37) ng/mL CK-MB (CK-2) Rel Index (1.5-5.0) % Troponin I (0.01-0.034) ng/mL Total Protein (6.3-8.2) g/dL Albumin (3.5-5.0) g/dL Globulin (1.7-4.1) g/dL Albumin/Globulin Ratio (1.0-2.8) Amylase (30-110) U/L Lipase (23-300) U/L HCG, Quant < 2.39 mIU/mL Urine RBC (0-5/HPF) Urine WBC (0-5/HPF) Ur Squamous Epith Cells Amorphous Sediment Urine Bacteria (None) Urine Mucus (Negative) Ur Culture Indicated? Blood Type O Positive Antibody Screen Negative Point of care testing: Point of Care Testing Test Results Negative Urine Dip Bedside Urine Glucose Negative Bedside Urine Bilirubin + 1 Bedside Urine Ketone +/- 5 Urine Specific [place] 1.030 Bedside Urine Occult Blood - Negative Bedside Urine pH 6.0 Bedside Urine Protein + 30 Bedside Urine Urobilinogen +/- 1mg Bedside Urine Nitrite - Negative Bedside Urine Leukocytes +/- [address] scan - abdomen: Radiologist's impression: [place] [address] CT Scan Report Signed Patient: Inés Astorga EMR#: [id number] : 1960Acct:[id number] Age/Sex: 57 / FDate of Service: 07/20/18 Loc: ED Accession Number: [id number] Procedure: CT abdomen pelvis w con Ordering Provider: Sri Hollis [employer]- PROCEDURE: CT ABDOMEN PELVIS W CON INDICATIONS: abd pain TECHNIQUE: After the administration of intravenous contrast, 5 mm thick sections acquired from the diaphragm to the symphysis. 5 mm coronal and sagittal reformats were acquired. For radiation dose reduction, the following was used: automated exposure control, adjustment of mA and/or kV according to patient size. COMPARISON: None. FINDINGS: Image quality: Excellent. ABDOMEN: Lung bases: Lung bases are clear. Heart size is normal. Solid organs: Liver is normal in size and enhancement. Gallbladder wall does not appear thickened. Biliary system is non dilated. Pancreas enhances normally. Spleen is normal in size and enhancement. No adrenal nodules. Kidneys demonstrate normal size and enhancement, without hydronephrosis. Peritoneum and bowel: There is a grossly dilated loop of colon seen within the left abdomen that measures nearly 13 cm transversely. The ileocecal valve can be seen along the inferomedial aspect of this loop of bowel, as on series 4 image 29. Prominent loops of distal small bowel are seen at measured 2.3 cm. There is a mild degree of layering free fluid seen within the pelvis. No free air is seen. Nodes and vessels: No retroperitoneal or mesenteric adenopathy by size criteria. Aorta and inferior vena cava are normal in size. Miscellaneous: No ventral hernias. PELVIS: Genitourinary: Bladder wall thickness is normal. Miscellaneous: No inguinal hernias or adenopathy. Bones: No suspicious bony lesions. No vertebral body compression fractures. Focal L5-S1 degenerative change is seen. Milder degenerative changes are seen elsewhere. 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 A surgical consultation is recommended. There is prominence of small bowel loops seen, which is likely related to the d egree of functional obstruction. A small amount of free pelvic fluid is seen. Dictated by: Mike Perez M.D. on 07/20/2018 at 14:21 Approved by: Mike Perez M.D. on 07/20/2018 at 14:26 ECG Data Attestation: I personally reviewed and interpreted this ECG as follows: Interpretation: Sinus bradycardia. Ventricular rate 53. No ectopy. No ST elevation or depression. [place] 184 MDM Narrative Medical decision making narrative: The patient is a 57-year-old female with lack of medical history who presents with a chief complaint of abdominal pain. CT found a cecal volvulus. She was hemodynamically stable throughout her stay in the emergency department. However given the CT results, I contacted Dr. Gutierrez from surgery who came to evaluate the patient admitted her. She was given IV fluids, Zofran and morphine throughout her stay in the emergency department. Her last oral intake was last night according the patient. Patient was admitted without incident. <Renetta Neff DO - Last Filed: 07/20/18 19:14> Lab Data Lab Results 07/20/18 07/20/18 07/20/18 Range/Units 12:46 13:25 13:25 WBC 10.8 (4.5-11.0) X10^3/uL RBC 3.89 L (4.0-5.2) X10^6/uL Hgb 12.4 (12.0-16.0) g/dL Hct 36.8 (36-46) % MCV 94.6 (80-100) fL MCH 31.8 (26-34) PG MCHC 33.6 (30-36) % RDW 14.0 (11.6-14.8) % Plt Count 271 (150-400) X10^3/uL Neut % (Auto) 73.1 (50-75) % Lymph % (Auto) 16.7 L (25-40) % [place] % (Auto) 7.3 (3-14) % Eos % (Auto) 2.4 (2-4) % Baso % (Auto) 0.5 (0-2) % Neut # (Auto) 7900 H (8214-6634) /uL Lymph # (Auto) 1800 (1383-3176) /uL [place] # (Auto) 800 (0-900) /uL Eos # (Auto) 300 (0-450) /uL Baso # (Auto) 100 (0-100) /uL Sodium 137 (137-145) mmol/L Potassium 4.4 (3.4-5.1) mmol/L Chloride 101 (98-107) mmol/L Carbon Dioxide 26 (22-32) mmol/L BUN 14 (7-17) mg/dL Creatinine 0.80 (0.52-1.04) mg/dL Estimated GFR > 60.0 (>60) mL/min BUN/Creatinine Ratio 17.5 (6-22) Glucose 103 H (70-100) mg/dL Lactate (0.7-2.1) mmol/L Calcium 9.3 (8.4-10.2) mg/dL Total Bilirubin 0.5 (0.2-1.3) mg/dL AST 36 (14-36) IU/L ALT 36 (9-52) IU/L Alkaline Phosphatase 70 (38-126) U/L Total Creatine Kinase 125 (30-135) U/L CK-MB (CK-2) 2.05 (<2.37) ng/mL CK-MB (CK-2) Rel Index 1.6 (1.5-5.0) % Troponin I < 0.012 (0.01-0.034) ng/mL Total Protein 7.2 (6.3-8.2) g/dL Albumin 4.5 (3.5-5.0) g/dL Globulin 2.7 (1.7-4.1) g/dL Albumin/Globulin Ratio 1.7 (1.0-2.8) Amylase 222 H (30-110) U/L Lipase 257 (23-300) U/L HCG, Quant mIU/mL Urine RBC None seen (0-5/HPF) Urine WBC 1-5/hpf (0-5/HPF) Ur Squamous Epith Cells 1-5 /hpf Amorphous Sediment 1+ Urine Bacteria Few (2-10) H (None) Urine Mucus 1+ H (Negative) Ur Culture Indicated? Specimen cultured Blood Type Antibody Screen 07/20/18 07/20/18 07/20/18 Range/Units 13:25 13:41 17:25 WBC (4.5-11.0) X10^3/uL RBC (4.0-5.2) X10^6/uL Hgb (12.0-16.0) g/dL Hct (36-46) % MCV (80-100) fL MCH (26-34) PG MCHC (30-36) % RDW (11.6-14.8) % Plt Count (150-400) X10^3/uL Neut % (Auto) (50-75) % Lymph % (Auto) (25-40) % [place] % (Auto) (3-14) % Eos % (Auto) (2-4) % Baso % (Auto) (0-2) % Neut # (Auto) (4526-1511) /uL Lymph # (Auto) (8307-1589) /uL [place] # (Auto) (0-900) /uL Eos # (Auto) (0-450) /uL Baso # (Auto) (0-100) /uL Sodium (137-145) mmol/L Potassium (3.4-5.1) mmol/L Chloride (98-107) mmol/L Carbon Dioxide (22-32) mmol/L BUN (7-17) mg/dL Creatinine (0.52-1.04) mg/dL Estimated GFR (>60) mL/min BUN/Creatinine Ratio (6-22) Glucose (70-100) mg/dL Lactate 0.8 (0.7-2.1) mmol/L Calcium (8.4-10.2) mg/dL Total Bilirubin (0.2-1.3) mg/dL AST (14-36) IU/L ALT (9-52) IU/L Alkaline Phosphatase (38-126) U/L Total Creatine Kinase (30-135) U/L CK-MB (CK-2) (<2.37) ng/mL CK-MB (CK-2) Rel Index (1.5-5.0) % Troponin I (0.01-0.034) ng/mL Total Protein (6.3-8.2) g/dL Albumin (3.5-5.0) g/dL Globulin (1.7-4.1) g/dL Albumin/Globulin Ratio (1.0-2.8) Amylase (30-110) U/L Lipase (23-300) U/L HCG, Quant < 2.39 mIU/mL Urine RBC (0-5/HPF) Urine WBC (0-5/HPF) Ur Squamous Epith Cells Amorphous Sediment Urine Bacteria (None) Urine Mucus (Negative) Ur Culture Indicated? Blood Type O Positive Antibody Screen Negative Point of care testing: Point of Care Testing Test Results Negative Urine Dip Bedside Urine Glucose Negative Bedside Urine Bilirubin + 1 Bedside Urine Ketone +/- 5 Urine Specific [place] 1.030 Bedside Urine Occult Blood - Negative Bedside Urine pH 6.0 Bedside Urine Protein + 30 Bedside Urine Urobilinogen +/- 1mg Bedside Urine Nitrite - Negative Bedside Urine Leukocytes +/- 15 Esterase Discharge Plan Departure Patient Disposition: Admitted As Inpatient Clinical Impression: Cecal volvulus Discharge Date/Time: 07/20/18 17:21 Interventions: ED Discharge Assessment Last Done: 07/20/18 17:21 Admit Date/Time: 07/20/18 16:32 Admit Provider: Rayshawn Gutierrez <Renetta Neff DO - Last Filed: 07/20/18 19:14> Cosign ED Attending Carmelaature Attestation: I was immediately available in the department for consultation. Documentation has been reviewed. I agree with assessment and plan.
[2018-07-20 13:20] LABS: Amorphous Sediment Urine 1+; Bacteria Urine Few (2-10); Culture Indicated Urine Specimen Cultured; Mucus Urine 1+ (Negative); Squamous Epithelial Cell Urine 1-5 /HPF; WBC Urine 1-5/HPF (0-5/HPF)
[2018-07-20 13:33] LABS: Add Manual Diff / Slide Review NO; Basophils Absolute Auto 100 /uL (0-100); Basophils Percent Auto 0.5 % (0-2); Eosinophils Absolute Auto 300 /uL (0-450); Eosinophils Percent Auto 2.4 % (2-4); Hematocrit 36.8 % (36-46); Hemoglobin 12.4 g/dL (12.0-16.0); Lymphocytes Absolute Auto 1800 /uL (1100-4500); Lymphocytes Percent Auto 16.7 % (25-40); Mean Corpuscular HGB Conc 33.6 % (30-36); Mean Corpuscular Hemoglobin 31.8 PG (26-34); Mean Corpuscular Volume 94.6 fL (80-100); Monocytes Absolute Auto 800 /uL (0-900); Monocytes Percent Auto 7.3 % (3-14); Neutrophils Absolute Auto 7900 /uL (1500-7000); Neutrophils Percent Auto 73.1 % (50-75); Platelet Count 271 X10^3/uL (150-400); Red Blood Cell Count 3.89 X10^6/uL (4.0-5.2); White Blood Cell Count 10.8 X10^3/uL (4.5-11.0)
[2018-07-20] MEDS: ONDANSETRON 4 MG/2 ML INJ IV (13:43)
[2018-07-20] MEDS: MORPHINE 2 MG/ML INJ IV ×3 (13:43→17:15)
[2018-07-20] MEDS: SODIUM CHLORIDE 0.9% 1,000 ML 150 ML IV (13:43)
[2018-07-20 13:46] LABS: Alanine Aminotransferase 36 IU/L (9-52); Albumin 4.5 g/dL (3.5-5.0); Albumin Globulin Ratio 1.7 (1.0-2.8); Alkaline Phosphatase 70 U/L (38-126); Amylase 222 U/L (30-110); Aspartate Aminotransferase 36 IU/L (14-36); BUN Creatinine Ratio 17.5 (6-22); Bilirubin Total 0.5 mg/dL (0.2-1.3); Blood Urea Nitrogen 14 mg/dL (7-17); Calcium 9.3 mg/dL (8.4-10.2); Carbon Dioxide 26 mmol/L (22-32); Chloride 101 mmol/L (98-107); Creatine Kinase 125 U/L (30-135); Estimated Glomerular Filt Rate > 60.0 mL/min (>60); Globulin 2.7 g/dL (1.7-4.1); Glucose 103 mg/dL (70-100); HEMOLYSIS < 15 (0-50); Lipase 257 U/L (23-300); Potassium 4.4 mmol/L (3.4-5.1); Sodium 137 mmol/L (137-145); Total Protein 7.2 g/dL (6.3-8.2)
[2018-07-20 13:57] LABS: Troponin I < 0.012 ng/mL (0.01-0.034)
[2018-07-20 14:01] LABS: CKMB % Relative Index 1.6 % (1.5-5.0); Creatine Kinase MB 2.05 ng/mL (<2.37)
[2018-07-20 14:02] LABS: Lactate (Lactic Acid) 0.8 mmol/L (0.7-2.1)
--- NOTE | 2018-07-20 14:58 | DI.CT.S_ITS ---
PROCEDURE: CT ABDOMEN PELVIS W CON INDICATIONS: abd pain TECHNIQUE: After the administration of intravenous contrast, 5 mm thick sections acquired from the diaphragm to the symphysis. 5 mm coronal and sagittal reformats were acquired. For radiation dose reduction, the following was used: automated exposure control, adjustment of mA and/or kV according to patient size. COMPARISON: None. FINDINGS: Image quality: Excellent. ABDOMEN: Lung bases: Lung bases are clear. Heart size is normal. Solid organs: Liver is normal in size and enhancement. Gallbladder wall does not appear thickened. Biliary system is non dilated. Pancreas enhances normally. Spleen is normal in size and enhancement. No adrenal nodules. Kidneys demonstrate normal size and enhancement, without hydronephrosis. Peritoneum and bowel: There is a grossly dilated loop of colon seen within the left abdomen that measures nearly 13 cm transversely. The ileocecal valve can be seen along the inferomedial aspect of this loop of bowel, as on series 4 image 29. Prominent loops of distal small bowel are seen at measured 2.3 cm. There is a mild degree of layering free fluid seen within the pelvis. No free air is seen. Nodes and vessels: No retroperitoneal or mesenteric adenopathy by size criteria. Aorta and inferior vena cava are normal in size. Miscellaneous: No ventral hernias. PELVIS: Genitourinary: Bladder wall thickness is normal. Miscellaneous: No inguinal hernias or adenopathy. Bones: No suspicious bony lesions. No vertebral body compression fractures. Focal L5-S1 degenerative change is seen. Milder degenerative changes are seen elsewhere. 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 A surgical consultation is recommended. There is prominence of small bowel loops seen, which is likely related to the degree of functional obstruction. A small amount of free pelvic fluid is seen. Dictated by: Mike Perez M.D. on 07/20/2018 at 14:21 Approved by: Mike Perez M.D. on 07/20/2018 at 14:26
[2018-07-20 15:14] LABS: HCG Quantitative /Beta subunit < 2.39 mIU/mL
[2018-07-20] MEDS: fentaNYL 100 MCG/2 ML INJ 50 MCG IV (17:33)
[2018-07-20] MEDS: LACTATED RINGERS 1,000 ML 42 ML IV ×2 (17:36→19:40)
--- NOTE | 2018-07-20 17:41 | P.HP_ITS ---
History of Present Illness Date Patient Seen: 07/20/18 Time Patient Seen: 17:34 Chief complaint: ABDOMINAL CRAMPS Narrative: 57-year-old otherwise healthy female who presents to the emergency department with a 10 hr history of progressive abdominal pain. States that the pain is mostly in the central abdomen and she has associated significant abdominal distention. She has had nausea since the onset of her symptoms but no vomiting. Nevertheless she has been relatively anorexic with her last meal being yesterday evening some time. She is only drink black coffee throughout the day today but stopped drinking any liquids at approximately 9:00 a.m. this morning. Since that time she has had progressive distention and pain. Pain is now unrelenting and described as quite sharp in the central abdomen. She has some associated cramping pain as well. Her last bowel movement was yesterday which she reports as normal. She has not moved her bowels today nor she passing flatus over the last 6-8 hours. No subjective fever or chills. No dysuria or hematuria. No chest pain or shortness of breath. She has never had any similar episodes in the past. Patient History Medical History No significant past medical history (Acute) No significant past surgical history (Acute) Tobacco use (Acute) Social History Smoking Status: Current every day smoker Family & Social History Safety & Behavioral: Feels Safe in Current Yes Environment Been Physically Hurt or No Threatened By a Person Tobacco & Substance use: Smoking Status Current every day smoker alcohol intake frequency other Substance Use Type does not use Meds Home Medications Medication Instructions Recorded Confirmed Type No Known Home Medications 07/20/18 07/20/18 History Allergies Allergy/AdvReac Type Severity Reaction Status Date / Time No Known Drug Allergies Allergy Verified 07/20/18 17:26 Review of Systems Review of Systems All systems reviewed & are unremarkable except as noted in HPI and below Exam Vital Signs (past 8 hours): - 07/20/18 12:30 07/20/18 13:49 07/20/18 15:35 Temperature 98.1 F Pulse Rate 62 54 L 60 Respiratory Rate 14 15 18 Blood Pressure 121/50 L Blood Pressure [Left Arm] 137/66 Blood Pressure [Right Arm] 129/69 Pulse Oximetry 100 100 99 07/20/18 16:39 07/20/18 17:16 Temperature 98.3 F 98.5 F Pulse Rate 64 59 L Respiratory Rate 18 22 Blood Pressure Blood Pressure [Left Arm] Blood Pressure [Right Arm] 97/50 L 138/60 Pulse Oximetry 98 100 Oxygen Delivery Method Room Air Narrative Exam Narrative: Well-nourished well-developed thin female sitting in bed in no acute distress but she does appear acutely ill. Temperature 100.0?. No tachycardia however. Sinus rhythm Blood pressure normal Room-air saturation 100% Sclera nonicteric Regular rate and rhythm. No crackles or wheezes. She does have sequela of COPD mildly consistent with her known tobacco use history of 1/2 pack of cigarettes per day for number of years Abdomen is distended and tympanitic. She has a palpable mass in the mid abdomen which is significantly tender. She has involuntary guarding on exam but no rebound tenderness. No obvious hernias Extremities show no clubbing or cyanosis Objective Labs Result Diagrams: 07/20/18 13:25 07/20/18 13:25 Labs: Laboratory Results - last 24 hr 07/20/18 07/20/18 07/20/18 12:46 13:25 13:25 WBC 10.8 RBC 3.89 L Hgb 12.4 Hct 36.8 MCV 94.6 MCH 31.8 MCHC 33.6 RDW 14.0 Plt Count 271 Neut % (Auto) 73.1 Lymph % (Auto) 16.7 L [place] % (Auto) 7.3 Eos % (Auto) 2.4 Baso % (Auto) 0.5 Neut # (Auto) 7900 H Lymph # (Auto) 1800 [place] # (Auto) 800 Eos # (Auto) 300 Baso # (Auto) 100 Sodium 137 Potassium 4.4 Chloride 101 Carbon Dioxide 26 BUN 14 Creatinine 0.80 Estimated GFR > 60.0 BUN/Creatinine Ratio 17.5 Glucose 103 H Lactate Calcium 9.3 Total Bilirubin 0.5 AST 36 ALT 36 Alkaline Phosphatase 70 Total Creatine Kinase 125 CK-MB (CK-2) 2.05 CK-MB (CK-2) Rel Index 1.6 Troponin I < 0.012 Total Protein 7.2 Albumin 4.5 Globulin 2.7 Albumin/Globulin Ratio 1.7 Amylase 222 H Lipase 257 HCG, Quant Urine RBC None seen Urine WBC 1-5/hpf Ur Squamous Epith Cells 1-5 /hpf Amorphous Sediment 1+ Urine Bacteria Few (2-10) H Urine Mucus 1+ H Ur Culture Indicated? Specimen cultured 07/20/18 07/20/18 13:25 13:41 WBC RBC Hgb Hct MCV MCH MCHC RDW Plt Count Neut % (Auto) Lymph % (Auto) [place] % (Auto) Eos % (Auto) Baso % (Auto) Neut # (Auto) Lymph # (Auto) [place] # (Auto) Eos # (Auto) Baso # (Auto) Sodium Potassium Chloride Carbon Dioxide BUN Creatinine Estimated GFR BUN/Creatinine Ratio Glucose Lactate 0.8 Calcium Total Bilirubin AST ALT Alkaline Phosphatase Total Creatine Kinase CK-MB (CK-2) CK-MB (CK-2) Rel Index Troponin I Total Protein Albumin Globulin Albumin/Globulin Ratio Amylase Lipase HCG, Quant < 2.39 Urine RBC Urine WBC Ur Squamous Epith Cells Amorphous Sediment Urine Bacteria Urine Mucus Ur Culture Indicated? I have personally reviewed her CT scan with staff radiologist. No free air. No significant free fluid. No dilated loops of small bowel. However, she has extremely dilated cecum that is rotated to the central abdomen toward the left upper quadrant. Remainder of the colon is completely decompressed with no air or stool seen. Liver and spleen are normal. Lung shukla are clear. No significant lymphadenopathy or other masses. 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 I discussed this with her in detail. I explained the natural history and pathophysiology of volvulus. Illustrations were also provided. She requires urgent laparotomy. I discussed this with her. Technical details of the operation including cecopexy versus right colectomy with ileocolonic anastomosis were discussed. Risks, benefits, alternatives were explained. Risk of no surgical intervention would entail ischemic necrosis, perforation, peritonitis, and . Risks of surgery includes but is not limited to anesthesia, bleeding, need for transfusion, infection, pain, scar, anastomotic leak, poor wound healing, liver injury, gastr ic injury, duodenal injury, ureter injury, bladder injury, small-bowel injury, colon injury, recurrent volvulus, and need for further major abdominal surgery were reviewed. We will discuss the potential for epidural pain catheter with the anesthesiology service. She understands by hospital protocol this would necessitate ICU admission. We discussed the need for Guthrie catheter for bladder decompression and urine monitoring as well as potential nasogastric tube for gastric decompression. Anticipated hospitalization and recovery were discussed. 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 She will contact the appropriate parties, but all questions were otherwise answered to her satisfaction. She voiced understanding. She wished to proceed with surgery at this institution under my care urgently as per my recommendation. Consent was placed on the chart. We will proceed as above.
--- NOTE | 2018-07-20 17:41 | PM.PREOP ---
Pre-operative Note Interval Note History & Physical reviewed/Exam performed by Physician: Yes Changes to H&P: No H&P completed within 30 days and has changed as indicated here:: Patient seen and examined in the preoperative area. History and physical examination is documented and placed on the chart today. Obviously, there have been no changes. We will proceed emergently with laparotomy as planned.
[2018-07-20] MEDS: CEFOTETAN 2 GM/50 ML PIGGYBACK IV (17:55)
--- NOTE | 2018-07-20 18:49 | SUR.OPER ---
Supine on padded OR bed, head on pillow, arm padded and tucked at side, legs uncrossed, safety belt at thigh, tape over blanket over lower legs .
[2018-07-20] MEDS: BUPIVACAINE 0.5% (PF) VIAL 30 ML INJ (18:56)
--- NOTE | 2018-07-20 19:29 | PM.PROC.1 ---
Procedures Date/Time Date of procedure: 07/20/18 Time of procedure: 18:00 Nerve Block Time out performed: Yes Local anesthetic used: lidocaine 1% Location of anesthetic used: T10-11 Nerve blocks: other (thoracic epidural for Postoperative Pain Management) Patient tolerated procedure: well and no complications Complications: none Additional comments: Thoracic epidural (T8-9) for post op pain management for laparotomy as discussed with surgeon. Discussed with patient risks, benefits, and alternatives to thoracic epidural for post op pain management. Pt was brought to the OR and seated on the OR table. Standard ASA monitors attached. 1mg versed. Sterile prep and drape in the standard fashion. Landmarks identified and vertebrae palpated at approximately T8-9. Lidocaine 1% skin wheal and 25g finder needle advanced to lamina via paramedian approach. Needle advanced to bone, then walked superiorly and medially. Hustead needle inserted and advanced using the same approach. Clean LYNDA to saline at 4cm. No paresthesias. Epidural catheter advanced easily with no paresthesia. Catheter secured at 9cm/6cm in epidural space. Negative aspiration for heme or CSF. Test dose of 3mL 1.5% lidocaine with epinephrine was negative. Tegaderm was placed and catheter secured. Pt tolerated well.
[2018-07-20] MEDS: FENT 2MCG/BUPIV 0.125% EPI 2 MCG/100 ML PLAST..BAG 4 MCG EPIDURAL (20:58)
--- NOTE | 2018-07-20 20:59 | SUR.PHASEI ---
epidural drip intiated by Dr. Sibley. Scanned by RN.
--- NOTE | 2018-07-20 21:08 | PM.OP.1 ---
Operative Date/Time/Diagnoses Date of procedure: 07/20/18 Time of procedure: 21:09 Pre-op diagnosis: Cecal volvulus Post-op diagnosis: same Procedure & Clinicians Procedure: 1. Exploratory laparotomy 2. ileocecectomy with ileocolonic primary anastomosis Same procedure as scheduled: Yes Indications: 57 year old female who presented the emergency department with approximately 10 hr history of progressive abdominal pain and distention in association with nausea but no vomiting. Examination evaluation revealed evidence of bowel obstruction. CT scan confirms cecal volvulus without obvious perforation. She was recommended to undergo urgent laparotomy. Surgeon: Rayshawn Gutierrez Click Yes if Unassisted: Yes Anesthesia Type: General, Epidural ( placed per anesthesia for postoperative analgesia) and Local ( 20 cc of 0.5% plain Marcaine injected in the wound for postoperative analgesia) Operative Notes Findings: 1. cecal volvulus resulting in mildly ischemic dusky cecum found in the left upper quadrant and central abdomen but without evidence of vitaliy necrosis or perforation 2. Extremely dilated cecum and distal ileum at the ileocecal valve consistent with volvulus 3. Completely mobile cecum without retroperitoneal attachments 4. Extremely long but otherwise normal appearing appendix 5. No significant free fluid or purulent material within the abdomen or pelvis 6. completely viable otherwise healthy-appearing small bowel and colon proximal to the volvulus and beyond the volvulus 7. Well vascularized widely patent ileocolonic anastomosis without evidence of leakage Closure Type: primary Specimen(s): other ( ileocecectomy) Prosthetic devices, grafts, tissues, transplants, or devices: none Applied: catheter ( Guthrie catheter to decompress urinary bladder and monitor urine output) Estimated Blood Loss (mL): 50 Blood products transfused: none Procedure in detail: After obtaining informed consent the patient was brought urgently to the operating room and placed supine on the table. Anesthesiology services placed an epidural pain catheter for postoperative analgesia. Please see their records for further details. After satisfactory induction of anesthesia Guthrie catheter was then inserted to decompress the urinary bladder and monitor urine output. Arms were tucked to her side and all pressure points were padded appropriately. SCOAP time out was performed per standard protocol. Abdomen was prepped and draped in usual sterile fashion. Lower midline incision below the umbilicus was created with 10 scalpel blade followed by the Bovie for hemostasis. Dissection proceeded down to the rectus fascia which was divided with the Bovie. Underlying peritoneum was entered under direct visualization between hemostats using Metzenbaum scissors. Surgeon's finger was then inserted into the abdomen and remaining portion of the peritoneum and fascia for the length of the incision was then opened with the Bovie over the surgeon's finger. Abdomen was visually and manually explored. Findings are as above. Cecum was gently manipulated and completely exteriorized. Volvulus was then immediately reduced. Bowel was noted to return to normal pink perfused status. Cecum was also decompressed of significant air and liquid stool gently as it was propelled forward into the distal colon. Exposure was then achieved with the Bookwalter retractor. It was apparent given the dilatation, size, and mild inflammation of the cecum with absence of any congenital retroperitoneal attachments at the cecum would need to be resected. Cecopexy was not feasible and carried significant risk of recurrent volvulus in the future. Therefore ileocecectomy was performed with 2 applications of the Endo-AGATHA 75 mm stapler proximally along the distal ileum just prior to the ileocecal valve and then distally at the ascending colon and what was grossly normal nondilated bowel. The the ascending colon was ligated with the stapler following mobilization sharply with Metzenbaum scissors along the white line of [place]. Hepatic flexure itself was not mobilized. Of course, the appendix was mobilized and taken with the specimen as well. Again, the remainder of the ascending colon was well perfused and completely normal without evidence of dilatation. I should also note that during mobilization of the proximal right colon great care was taken to avoid injury to iliac vessels as well as the right ureter. Once the bowel had been mobilized and divided proximally as well as distally the mesentery was divided immediately adjacent to the bowel wall in order to preserve major vessels supplying the planned anastomosis. Mesentery was taken down between clamps in a serial fashion and divided sharply with Metzenbaum scissors. A combination of 2 0 silk ties and 3 0 silk suture ligatures were used to control vessels. Once the specimen was liberated was sent for permanent section. Hemostasis was verified. Distal ileum and right colon were brought into approximation without tension and with great care to avoid torsion of the mesentery. Proximal and distal bowel loops were approximated along the anti mesenteric aspects with interrupted seromuscular 3 0 silk Lembert sutures. Proximal distal bowel clamps were applied. Corners of the staple line were then removed with curved Alonzo scissors along the antimesenteric aspects of both bowel loops. There was minimal spillage of liquid succus and the bowel loops are decompressed with suction. Each limb of the Endo-AGATHA 75 mm stapler was then inserted into the bowel loops thereby bringing them into approximation along the anti mesenteric border. Great care was taken to avoid inclusion of the mesentery or other bowel loops within the staple line. Stapler was then fired creating the anastomosis. Staple line was examined and noted to be hemostatic. The apex of the staple line was reinforced with 2 individual 3 0 silk interrupted seromuscular sutures. The remaining defect of the anastomosis was then closed in a 2 layer fashion using an inner running layer of 3 0 Vicryl placed in a running [place] fashion. Outer layer of interrupted 3 0 silk seromuscular Lembert sutures was then applied to complete the anastomosis. All exposed staple lines were also oversewn with seromuscular interrupted 3 0 silk sutures as well. Anastomosis was palpated and noted be widely patent. Air and succus was manually manipulated from the distal ileum through the anastomosis into the ascending colon without evidence of leakage. Mesenteric defect was closed with a single 3 0 silk [id number] stitch. Bowel was replaced into its usual anatomic position and the abdomen was irrigated with copious amounts of sterile saline solution which was suctioned and noted to be clear. A total 2 L of irrigation was used. Again, hemostasis was verified and the bowel was noted to be in good position and gentle curving loops. Bowel was covered with omentum. Fascia and peritoneum were then closed with a running looped 0 PDS suture. Subcutaneous tissue was irrigated with sterile saline solution and noted be hemostatic. Skin was closed with haydee. Sterile dressing was applied. Anesthesia was reversed the patient extubated in the operating room. She was taken recovery stable condition. Complications: none Condition: stable Disposition: ICU ( per hospital protocol due to epidural pain catheter but otherwise stable) Plan for aftercare: 1. admit to ICU per hospital protocol for epidural analgesia 2. Continue IV fluid resuscitation and await bowel function.
[2018-07-20] MEDS: HYDROMORPHONE 0.5 MG INJ IV (21:20)
[2018-07-20] MEDS: SODIUM CHLORIDE 0.9% 1,000 ML 110 ML IV (21:32)
--- NOTE | 2018-07-20 22:45 | PC.NURSE ---
2100- Patient arrived to room 106 with Recovery Nurse and Anesthesia. Patient recovered per protocol. Pt is alert and oriented. C/O pain 6/10. Epidural bolus of 4ML given by Anesthesia, additional 0.5mg Dilaudid IV push given per order. Patient now reports she is comfortable. Abdominal dressing is CDI. Guthrie is draining oral urine. Lungs are clear anteriorly. SCD on both legs. Patient is in NSR.
[2018-07-21] VITALS (19 sets, daily range): BP systolic 77–117; BP diastolic 40–53; PULSE 75–91; RESP 15–21; TEMP 36.4–38.1; O2SAT 89–95
--- NOTE | 2018-07-21 03:55 | PC.NURSE ---
Patient belongings in safe { wallet and passport } returned to her per her request.
[2018-07-21] MEDS: HYDROMORPHONE 0.5 MG INJ IV ×2 (04:04→12:26)
[2018-07-21 04:59] LABS: Add Manual Diff / Slide Review NO; Basophils Absolute Auto 0 /uL (0-100); Basophils Percent Auto 0.3 % (0-2); Eosinophils Absolute Auto 0 /uL (0-450); Hematocrit 30.2 % (36-46); Hemoglobin 10.3 g/dL (12.0-16.0); Lymphocytes Absolute Auto 1000 /uL (1100-4500); Lymphocytes Percent Auto 8.5 % (25-40); Mean Corpuscular Hemoglobin 32.4 PG (26-34); Mean Corpuscular Volume 95.3 fL (80-100); Monocytes Absolute Auto 600 /uL (0-900); Neutrophils Absolute Auto 10000 /uL (1500-7000); Neutrophils Percent Auto 86.2 % (50-75); Platelet Count 225 X10^3/uL (150-400); Red Blood Cell Count 3.17 X10^6/uL (4.0-5.2); White Blood Cell Count 11.6 X10^3/uL (4.5-11.0)
[2018-07-21 05:08] LABS: Blood Urea Nitrogen 12 mg/dL (7-17); Calcium 7.9 mg/dL (8.4-10.2); Carbon Dioxide 24 mmol/L (22-32); Chloride 107 mmol/L (98-107); Estimated Glomerular Filt Rate > 60.0 mL/min (>60); Glucose 116 mg/dL (70-100); HEMOLYSIS < 15 (0-50); Sodium 137 mmol/L (137-145)
[2018-07-21] MEDS: SODIUM CHLORIDE 0.9% 1,000 ML 110 ML IV (05:59)
[2018-07-21] MEDS: CEFOTETAN 1 GM/50 ML PIGGYBACK IV ×2 (06:19→19:52)
--- NOTE | 2018-07-21 06:55 | PC.NURSE ---
NOC Shift: POD #1 cecel volvulus. Pt AAOX3, with somewhat adaquate pain control w/Bup-Fentanyl epidural rate of 6mls/hr. Pt unable to assess pain, just states her pain is better than before surgery, but is sore now. Rates pain 6/10. Pain control level assessed at T4. ABD dsg CDI, no audible BT's to rare. SBP running low 80 to 90 with mean greater than 62. Standing order to call anesthesia for SBP less than 80. Dilaudid IVP used sparingly for breakthrough pain. NPO. Floor care tele.
[2018-07-21] MEDS: ENOXAPARIN 30 MG/0.3 ML SYRINGE SUBCUT (08:56)
[2018-07-21] MEDS: PANTOPRAZOLE 40 MG VIAL IV (08:56)
--- NOTE | 2018-07-21 10:15 | PM.PN.1 ---
Subjective Date Patient Seen: 07/21/18 Time Patient Seen: 10:15 Interval history: Patient denies any significant pain. Feels mildly distended throughout the abdomen but less so today. Discomfort throughout the abdomen described as a soreness rather than any significant sharp pain. No chest pain or shortness of breath. No subjective fever or chills. No nausea or vomiting. No flatus. Mildly thirsty but not particularly hungry. Exam Vital Signs (past 8 hours): - 07/21/18 04:00 07/21/18 04:04 07/21/18 07:24 Temperature 98.5 F 97.6 F 99.9 F H Pulse Rate 78 79 Respiratory Rate 15 15 Blood Pressure 97/45 L 80/42 L Pulse Oximetry 94 92 Oxygen Delivery Method Room Air Narrative Exam Narrative: Thin female resting comfortably in bed in no acute distress. Alert oriented x3. No fevers with maximal temperature of 99.9?. Systolic blood pressure running 80 to low 90s throughout this morning. However no tachycardia. Sinus rhythm. Adequate urine output with 550 cc since surgery Urine in the Guthrie catheter is clear Chest clear to auscultation bilaterally with regular rate and rhythm. No murmurs. No crackles or wheezes. Abdomen is slightly distended with minimal bowel sounds. Dressing is clean, dry, and intact. She is appropriately tender to palpation without guarding or rebound. Otherwise relatively soft. Extremities show no clubbing or cyanosis Objective Labs Result Diagrams: 07/21/18 04:34 07/21/18 04:34 Labs: Laboratory Results - last 24 hr 07/20/18 07/20/18 07/20/18 12:46 13:25 13:25 WBC 10.8 RBC 3.89 L Hgb 12.4 Hct 36.8 MCV 94.6 MCH 31.8 MCHC 33.6 RDW 14.0 Plt Count 271 Neut % (Auto) 73.1 Lymph % (Auto) 16.7 L [place] % (Auto) 7.3 Eos % (Auto) 2.4 Baso % (Auto) 0.5 Neut # (Auto) 7900 H Lymph # (Auto) 1800 [place] # (Auto) 800 Eos # (Auto) 300 Baso # (Auto) 100 Sodium 137 Potassium 4.4 Chloride 101 Carbon Dioxide 26 BUN 14 Creatinine 0.80 Estimated GFR > 60.0 BUN/Creatinine Ratio 17.5 Glucose 103 H Lactate Calcium 9.3 Total Bilirubin 0.5 AST 36 ALT 36 Alkaline Phosphatase 70 Total Creatine Kinase 125 CK-MB (CK-2) 2.05 CK-MB (CK-2) Rel Index 1.6 Troponin I < 0.012 Total Protein 7.2 Albumin 4.5 Globulin 2.7 Albumin/Globulin Ratio 1.7 Amylase 222 H Lipase 257 HCG, Quant Urine RBC None seen Urine WBC 1-5/hpf Ur Squamous Epith Cells 1-5 /hpf Amorphous Sediment 1+ Urine Bacteria Few (2-10) H Urine Mucus 1+ H Ur Culture Indicated? Specimen cultured Nasal Screen MRSA (PCR) Blood Type Antibody Screen 07/20/18 07/20/18 07/20/18 13:25 13:41 17:25 WBC RBC Hgb Hct MCV MCH MCHC RDW Plt Count Neut % (Auto) Lymph % (Auto) [place] % (Auto) Eos % (Auto) Baso % (Auto) Neut # (Auto) Lymph # (Auto) [place] # (Auto) Eos # (Auto) Baso # (Auto) Sodium Potassium Chloride Carbon Dioxide BUN Creatinine Estimated GFR BUN/Creatinine Ratio Glucose Lactate 0.8 Calcium Total Bilirubin AST ALT Alkaline Phosphatase Total Creatine Kinase CK-MB (CK-2) CK-MB (CK-2) Rel Index Troponin I Total Protein Albumin Globulin Albumin/Globulin Ratio Amylase Lipase HCG, Quant < 2.39 Urine RBC Urine WBC Ur Squamous Epith Cells Amorphous Sediment Urine Bacteria Urine Mucus Ur Culture Indicated? Nasal Screen MRSA (PCR) Blood Type O Positive Antibody Screen Negative 07/20/18 07/21/18 07/21/18 20:55 04:34 04:34 WBC 11.6 H RBC 3.17 L Hgb 10.3 L Hct 30.2 L MCV 95.3 MCH 32.4 MCHC 34.0 RDW 14.0 Plt Count 225 Neut % (Auto) 86.2 H Lymph % (Auto) 8.5 L [place] % (Auto) 5.0 Eos % (Auto) 0.0 L Baso % (Auto) 0.3 Neut # (Auto) 86496 H Lymph # (Auto) 1000 L [place] # (Auto) 600 Eos # (Auto) 0 Baso # (Auto) 0 Sodium 137 Potassium 4.0 Chloride 107 Carbon Dioxide 24 BUN 12 Creatinine 0.80 Estimated GFR > 60.0 BUN/Creatinine Ratio 15.0 Glucose 116 H Lactate Calcium 7.9 L Total Bilirubin AST ALT Alkaline Phosphatase Total Creatine Kinase CK-MB (CK-2) CK-MB (CK-2) Rel Index Troponin I Total Protein Albumin Globulin Albumin/Globulin Ratio Amylase Lipase HCG, Quant Urine RBC Urine WBC Ur Squamous Epith Cells Amorphous Sediment Urine Bacteria Urine Mucus Ur Culture Indicated? Nasal Screen MRSA (PCR) Negative for mrsa Blood Type Antibody Screen urine culture pending Assessment & Plan Assessment & Plan narrative: 57-year-old female postoperative day 1 from laparotomy with ileocecectomy due to cecal volvulus who is stable. Epidural catheter is working well. Adequate urine output. No remarkable laboratory findings. Mildly hypotensive which is not unanticipated given her baseline cardiopulmonary function as well as epidural catheter infusion currently. She is asymptomatic and otherwise euvolemic. We will slower fluids down slightly and allow a clear liquid diet. Out of bed to chair with physical therapy as tolerated. Encouraged incentive spirometry. Repeat laboratory studies tomorrow. I again reviewed all of the intraoperative findings with her as well as the technical details of the operation performed. All questions were answered to her satisfaction, and she voiced understanding. Orders were written.
--- NOTE | 2018-07-21 11:58 | PT.IIE ---
Current Diagnoses Chronic vascular disorders of intestine (07/20/18) Surgery Performed Operation Date: 07/20/18 16:50 Actual Procedures p Exploratory Laparotomy, Illeocecectomy, Illeocolonic anastomosis - Rayshawn Gutierrez MD Medical History (Last Reviewed 07/20/18 @ 17:36 by Rayshawn Gutierrez MD) No significant past medical history (Acute) No significant past surgical history (Acute) Tobacco use (Acute) Physical Therapy Inpatient Evaluation/Re-Eval M1 PT/OT-IP Prior Functional Status Start: 07/21/18 13:21 Freq: NEEDED Status: Active Protocol: Document 07/21/18 11:58 RCC (Rec: 07/21/18 13:34 [facility] [id number]) Medical Review Prior Functional Status Medical History Reviewed Yes Mobility and Gait indep. community ambulator without device Activities of Daily Living and IADL's indep. 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 Pt had urgent laparoscopic ileocecectomy with ileocolonic primary anastomosis on 07/20/18. Pt's plan is to remain locally for ~1 wk s/p d/c to keep a follow up appointment. Sister is coming from [place] to assist upon d/c, but d/c destination is yet to be determined. M2 PT-IP Current Condition Start: 07/21/18 13:21 Freq: NEEDED Status: Active Protocol: Document 07/21/18 11:58 RCC (Rec: 07/21/18 13:34 [facility] [id number]) Physical Therapy Current Condition Current Condition Evaluation Date 07/21/18 Treatment Diagnosis ex. lap. ileocecectomy 07/20/18, impaired activity tolerance and gait Onset Date 07/20/18 Precautions Abdominal Surgery Precautions Log Roll Lifting Restrictions Gait Belt above Incisional Area Other Precautions still currently with epidural on evaluation 07/21/18 M3 PT-IP Subjective Start: 07/21/18 13:21 Freq: NEEDED Status: Active Protocol: Document 07/21/18 11:58 RCC (Rec: 07/21/18 13:34 [facility] [id number]) Subjective Physical Therapy Visit Type Type Initial Evaluation Visit Start Time 11:58 Visit Stop Time 12:30 Total Visit Minutes 32 Number of AUTO POLISHER Visits 0 Physical Therapy Visit Comments Patient Comments pt states that she has some pain, about 2/10. Increased pain to 6/10 with mobility. Therapy Pain Assessment Pain Present Pain Present Pain Reported Location abd Intensity 6 Scale Used Numeric (1 - 10) M4 PT-IP Mobility and Gait Start: 07/21/18 13:21 Freq: NEEDED Status: Active Protocol: Document 07/21/18 11:58 [facility] (Rec: 07/21/18 13:34 [facility] [id number]) PT-Bed Mobility Assessment Rolling Type of Rolling Log Rolling Level of Assist Minimal Assistance 1 Person Assistance Supine to Sit Supine to Sit Minimal Assistance 1 Person Assistance Scooting Scooting to Edge of Bed Standby Assistance PT-Transfer Assessment Sit to and From Stand Sit to and from Stand Standby Assistance Equipment Transfer Assistive Device Front Wheeled Walker Transfers Transfer Destination Chair Transfer Technique Stand Step Pivot Transfer Ability Level of Assist Standby Assistance Comments Mobility Comments uanble to use gait belt due to epidural placement and abdominal incisional area Gait Assessment Gait Gait Assistance Required: Standby Assistance Distance (Feet) 15 Assistive Devices Assistive Device Gait Belt Front Wheeled Walker Gait Deviations General Gait Pattern Antalgic Decreased Stride Length Decreased Feet Clearance Flexed Trunk Narrow Based Gait Factors Limiting Gait Function Factors Limiting Gait Function Decreased Activity Tolerance Decreased Strength Pain Comments Gait Comments slow paced gait, increased discomfort with ambulation therefore d/c gait after 15 ft PT-Balance Assessment Sitting Balance and Reactions Static Sitting Balance Ability Good Dynamic Sitting Balance Ability Good Standing Balance and Reactions Static Standing Balance Ability Fair Dynamic Standing Balance Ability Fair Device Used FWW M5 PT-IP Objective Assessments Start: 07/21/18 13:21 Freq: NEEDED Status: Active Protocol: Document 07/21/18 11:58 [facility] (Rec: 07/21/18 13:34 [facility] [id number]) Orientation Orientation/Cognition Level of Alertness Alert Orientation Name Age Birthday Month Date Year Day of Week Place Situation Language Function Ability No Deficits Noted Safety Awareness Understands Safety Issues Memory Description No Deficits Noted Strength Lower Extremity Strength Ankle DF 5/5 Comments Strength Comments LE MMT not performed d/t surgery- able to perform light SLR to clear heels off of bed . Coordination Assessment Gross Coordination Gross Coordination WNL Sensation Assessment Sensation Gross Sensation WNL Light Touch Intact Muscle Tone Muscle Tone WNL Yes M6 PT-IP Treatment Start: 07/21/18 13:21 Freq: NEEDED Status: Active Protocol: Document 07/21/18 11:58 RCC (Rec: 07/21/18 13:34 [facility] [id number]) Physical Therapy Treatment Education Education Provided Precautions Safety M7 PT-IP Assessment and Plan Start: 07/21/18 13:21 Freq: NEEDED Status: Active Protocol: Document 07/21/18 11:58 RCC (Rec: 07/21/18 13:34 [facility] [email or web address]) PT Summary Assessment and Plan Potential Rehabilitation Potential Good Status of Condition at Evaluation Evolving Summary Impairments Pain Strength Bed Mobility Transfers Gait Activity Tolerance Assessment Summary POD #1. Pt required prolonged time for all mobility, and only tolerated 15 ft of ambulation due to abdominal discomfort. She still had epidural present at the time of this evaluation (CHLORINE CELL TENDER and RN assisted with line management ). Pt is well below her prior level of function, but likely to improve as she recovers from surgery. Pending improvement with mobility and post-op care of incision, pt may be able to have sister assist with staying locally for some time after d/c. Will continue to monitor pt's progress on whether she will require increased care/skilled care post-op vs. sister being able to assist initially upon d/c. Goals Bed Mobility Goal Independent Transfer Goal Independent Gait Goal Independent Gait Distance 300 Days to Meet Goals 10 Frequency of Treatment Frequency Of Treatment Once a Day Treatment Plan Physical Therapy Treatment Plan Bed Mobility Training Transfer Training Gait Training Balance Retraining Post Op Education Discharge Planning Neuromuscular Re-ed Other Recommendations and Next Treatment progress gait as tolerated, Focus cont. to review and work on log roll for abdominal protection. Recommendations To Nursing Amount of Assist Needed 1 Person Assist Discharge Recommendations PT Discharge Recommendations Home with / Assist SNF Rehab Other Discharge Recommendations sister assist while staying local vs. SNF rehabilitation
[2018-07-21] MEDS: FENT 2MCG/BUPIV 0.125% EPI 2 MCG/100 ML PLAST..BAG 6 MCG EPIDURAL ×2 (12:10→23:49)
--- NOTE | 2018-07-21 12:52 | CM.DANOTE ---
Patient is a 57 year old female who was admitted on 07/20/18 for Urgent Laparotomy. Pt has L&I for insurance and her PCP is back in [place]. EMR was reviewed. Per MD, pt tolerated procedure well yesterday and seems to have less pain and more just discomfort today. Per RN, pt still currently NPO and has family that has called and plans to fly in for support from [place]. SW met bedside with patient and explained role and updated white board and pt confirmed that she lives at home alone in [place] and has family living nearby in [place] and she is Independent with ADL's at baseline and drives. Pt denies any hx of HH or SNF and has been mostly healthy. 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 Patient has her belongings from the ship and states her sister is flying into [place] this evening from [place] to provide assist to the pt while in the hospital and at d/c. Pt states she discussed with MD about remaining local for about a week after discharge from the hospital so she can have her follow up appointment and pt seems to feel that this is manageable and an option for her. PT has been ordered and pending. Plan: SW to follow closely after PT eval and recommendations and when pt's diet is able to be advanced towards determining any further d/c planning needs. Pt's sister to arrive bedside likely tonight. JOSTIN Patel Discharge Planning/Care Management CM Discharge Assessment Start: 07/21/18 12:49 Freq: Status: Active Protocol: Document 07/21/18 12:49 BF (Rec: 07/21/18 12:52 [id number]) Discharge Planning Assessment Assigned Big Data Developer JOSTIN Tinsley Advance Directives? No Advance Directives on File No History Provided By Patient Medical Record Has Patient been admitted in last 30 No days? Prior Living Arrangements House Household Members none Type of transporation used prior to Drives own vehicle admit Comment Lives in [place] but is here for work at the [employer] Independent with ADL's Yes Is patient alert and oriented? Yes Caregiver for Another No Comment Likely home with sister support when medically stable. Barriers to Discharge Yes Comment Possible barrier is that pt resides in [place] and here for work and likely will have a f/ u appointment after discharge. Discharge Plan Home Transportation Arrangement Patient's sister to fly in [email or web address] from [place] to assist patient. Additional Comment Waiting for PT eval and recommendations Whiteboard Updated in Patient Room with Yes name and ext. # of Big Data Developer Review Status In Process Please Provide Date Initial DC 07/21/18 Assessment Was Performed Next Review Type Continued Stay Review
--- NOTE | 2018-07-21 14:11 | PC.NURSE ---
Addendum entered by Victor Hugo Gómez 07/21/18 14:18: Patient declined Nicotine patch at AM med pass. I feel ok, maybe later Original Note: Shift note 1411 Patient alert and oriented x4. Flat affect. Cooperative with care. Able to use call light and expresses needs. Room air, lungs are clear but distant. Pain reported by patient as abdominal soreness with no sharp pains at rest. Physical therapy worked with patient at 1300. Pt reported pain with activity. PRN dilauded given. Pt now sleeping in bed. Call light in reach. Bed down and locked. Patient belongings, including purse, cell phone, and 2 suitcases, in room with pt.
[2018-07-21] MEDS: HYDROMORPHONE 1 MG INJ IV (16:25)
[2018-07-21] MEDS: SODIUM CHLORIDE 0.9% 1,000 ML 85 ML IV (16:42)
--- NOTE | 2018-07-21 17:59 | PM.PN.1 ---
Subjective Date Patient Seen: 07/21/18 Time Patient Seen: 17:59 Interval history: Pt seen this am, comfortable, no narcotics required overnight. Good UOP, BP stable. This pm, c/o increasing R sided pain, 6/10. Minimal improvement with dilaudid. Tolerating some clears. Exam Vital Signs (past 8 hours): - 07/21/18 12:35 07/21/18 16:00 07/21/18 16:25 Temperature 99.5 F 99.6 F 99.6 F Pulse Rate 80 Respiratory Rate 18 19 Blood Pressure 91/42 L 79/40 L Pulse Oximetry 92 95 Oxygen Delivery Method Room Air Oxygen Flow Rate 0 Narrative Exam Narrative: NAD. Sitting in bed. Epidural bandage and site c/d/i, 9cm at skin. Block to cold sensation: Right side approximately T-6-L2, Left side cold sensation intact. Objective Labs Result Diagrams: 07/21/18 04:34 07/21/18 04:34 Labs: Laboratory Results - last 24 hr 07/20/18 07/20/18 07/21/18 17:25 20:55 04:34 WBC 11.6 H RBC 3.17 L Hgb 10.3 L Hct 30.2 L MCV 95.3 MCH 32.4 MCHC 34.0 RDW 14.0 Plt Count 225 Neut % (Auto) 86.2 H Lymph % (Auto) 8.5 L [place] % (Auto) 5.0 Eos % (Auto) 0.0 L Baso % (Auto) 0.3 Neut # (Auto) 58218 H Lymph # (Auto) 1000 L [place] # (Auto) 600 Eos # (Auto) 0 Baso # (Auto) 0 Sodium Potassium Chloride Carbon Dioxide BUN Creatinine Estimated GFR BUN/Creatinine Ratio Glucose Calcium Nasal Screen MRSA (PCR) Negative for mrsa Blood Type O Positive Antibody Screen Negative 07/21/18 04:34 WBC RBC Hgb Hct MCV MCH MCHC RDW Plt Count Neut % (Auto) Lymph % (Auto) [place] % (Auto) Eos % (Auto) Baso % (Auto) Neut # (Auto) Lymph # (Auto) [place] # (Auto) Eos # (Auto) Baso # (Auto) Sodium 137 Potassium 4.0 Chloride 107 Carbon Dioxide 24 BUN 12 Creatinine 0.80 Estimated GFR > 60.0 BUN/Creatinine Ratio 15.0 Glucose 116 H Calcium 7.9 L Nasal Screen MRSA (PCR) Blood Type Antibody Screen Assessment & Plan Assessment & Plan narrative: 4mL bolus of 0.25% bupivacaine administered at bedside with significant improvement. Left side still with sensation to cold intact after bolus, but pain improved. Rate increased to 8mL/h. Will reassess in am.
--- NOTE | 2018-07-21 21:18 | PC.NURSE ---
Addendum entered by Ashanti Marshall R.N. 07/21/18 21:18: In assessing cold sensation for epidural assessment, pt reports full cold sensation to left side, and no cold sensation to right side, dermatomes T6 to L2. Pt reports increased pain to RLQ. Medicated with Dilaudid with no effect. Called Dr. Sibley, communication professor anesthesiology, to report assessment. Dr. Sibley came in to see pt, gave bolus in epidural, increased epidural rate to 8 ml/hr. Pt now pain free. Temp up to 100.6. Instructed pt in incentive spirometer use; pt achieved 1250 ml. Encouraged aggressive use. Temp down to 100. Original Note: leonor velasquez
[2018-07-22] VITALS (12 sets, daily range): BP systolic 96–116; BP diastolic 49–66; PULSE 70–83; RESP 15–22; TEMP 37.2–38.6; O2SAT 91–99
[2018-07-22] MEDS: HYDROMORPHONE 0.5 MG INJ IV ×3 (01:11→10:10)
[2018-07-22] MEDS: ACETAMINOPHEN 325 MG TABLET 650 MG PO ×2 (04:18→13:02)
[2018-07-22] MEDS: CEFOTETAN 1 GM/50 ML PIGGYBACK IV (05:35)
[2018-07-22] MEDS: SODIUM CHLORIDE 0.9% 1,000 ML 85 ML IV ×2 (05:35→18:02)
[2018-07-22 06:15] LABS: Add Manual Diff / Slide Review NO; Basophils Absolute Auto 0 /uL (0-100); Basophils Percent Auto 0.3 % (0-2); Eosinophils Absolute Auto 200 /uL (0-450); Hematocrit 27.6 % (36-46); Hemoglobin 9.4 g/dL (12.0-16.0); Lymphocytes Absolute Auto 2200 /uL (1100-4500); Lymphocytes Percent Auto 25.3 % (25-40); Mean Corpuscular HGB Conc 34.3 % (30-36); Mean Corpuscular Hemoglobin 32.5 PG (26-34); Mean Corpuscular Volume 94.7 fL (80-100); Monocytes Absolute Auto 700 /uL (0-900); Monocytes Percent Auto 7.8 % (3-14); Neutrophils Absolute Auto 5700 /uL (1500-7000); Neutrophils Percent Auto 64.6 % (50-75); Platelet Count 180 X10^3/uL (150-400); Red Blood Cell Count 2.91 X10^6/uL (4.0-5.2); Red Cell Distribution Width 14.5 % (11.6-14.8); White Blood Cell Count 8.8 X10^3/uL (4.5-11.0)
[2018-07-22 06:27] LABS: Blood Urea Nitrogen 12 mg/dL (7-17); Calcium 7.7 mg/dL (8.4-10.2); Carbon Dioxide 25 mmol/L (22-32); Chloride 106 mmol/L (98-107); Estimated Glomerular Filt Rate > 60.0 mL/min (>60); Glucose 87 mg/dL (70-100); HEMOLYSIS < 15 (0-50); Potassium 3.6 mmol/L (3.4-5.1); Sodium 136 mmol/L (137-145)
[2018-07-22] MEDS: ENOXAPARIN 30 MG/0.3 ML SYRINGE SUBCUT (09:03)
[2018-07-22] MEDS: PANTOPRAZOLE 40 MG VIAL IV (09:03)
[2018-07-22] MEDS: NICOTINE 7 MG PATCH TOP (09:03)
--- NOTE | 2018-07-22 10:20 | PT.IPTN ---
Current Diagnoses Chronic vascular disorders of intestine (07/20/18) Surgery Performed Operation Date: 07/20/18 16:50 Actual Procedures p Exploratory Laparotomy, Illeocecectomy, Illeocolonic anastomosis - Rayshawn Gutierrez MD Physical Therapy Treatment Note M2 PT-IP Current Condition Start: 07/21/18 13:21 Freq: NEEDED Status: Active Protocol: Document 07/21/18 11:58 RCC (Rec: 07/21/18 13:34 RCC [email or web address]) Physical Therapy Current Condition Current Condition Evaluation Date 07/21/18 Treatment Diagnosis ex. lap. ileocecectomy 07/20/18, impaired activity tolerance and gait Onset Date 07/20/18 Precautions Abdominal Surgery Precautions Log Roll Lifting Restrictions Gait Belt above Incisional Area Other Precautions still currently with epidural on evaluation 07/21/18 M3 PT-IP Subjective Start: 07/21/18 13:21 Freq: NEEDED Status: Active Protocol: Document 07/22/18 10:20 RCC (Rec: 07/22/18 11:49 RCC [id number]) Subjective Physical Therapy Visit Type Type Treatment Note Visit Start Time 10:20 Visit Stop Time 10:45 Total Visit Minutes 25 Number of CONTROL ROOM TECHNICIAN Visits 0 Physical Therapy Visit Comments Patient Comments Pt states pain is better today . M4 PT-IP Mobility and Gait Start: 07/21/18 13:21 Freq: NEEDED Status: Active Protocol: Document 07/22/18 10:20 RCC (Rec: 07/22/18 11:49 RCC [id number]) PT-Bed Mobility Assessment Rolling Type of Rolling Log Rolling Level of Assist Minimal Assistance 1 Person Assistance Supine to Sit Supine to Sit Minimal Assistance 1 Person Assistance Scooting Scooting to Edge of Bed Standby Assistance PT-Transfer Assessment Sit to and From Stand Sit to and from Stand Standby Assistance Equipment Transfer Assistive Device Front Wheeled Walker Transfers Transfer Destination Chair Transfer Technique Stand Step Pivot Transfer Ability Level of Assist Standby Assistance Gait Assessment Gait Gait Assistance Required: Standby Assistance Distance (Feet) 25 Assistive Devices Assistive Device Gait Belt Front Wheeled Walker Gait Deviations General Gait Pattern Antalgic Decreased Stride Length Decreased Feet Clearance Flexed Trunk Narrow Based Gait Factors Limiting Gait Function Factors Limiting Gait Function Decreased Activity Tolerance Decreased Strength Pain M5 PT-IP Objective Assessments Start: 07/21/18 13:21 Freq: NEEDED Status: Active Protocol: Document 07/21/18 11:58 RCC (Rec: 07/21/18 13:34 [facility] [id number]) Orientation Orientation/Cognition Level of Alertness Alert Orientation Name Age Birthday Month Date Year Day of Week Place Situation Language Function Ability No Deficits Noted Safety Awareness Understands Safety Issues Memory Description No Deficits Noted Strength Lower Extremity Strength Ankle DF 5/5 Comments Strength Comments LE MMT not performed d/t surgery- able to perform light SLR to clear heels off of bed . Coordination Assessment Gross Coordination Gross Coordination WNL Sensation Assessment Sensation Gross Sensation WNL Light Touch Intact Muscle Tone Muscle Tone WNL Yes M6 PT-IP Treatment Start: 07/21/18 13:21 Freq: NEEDED Status: Active Protocol: Document 07/21/18 11:58 [facility] (Rec: 07/21/18 13:34 [facility] [id number]) Physical Therapy Treatment Education Education Provided Precautions Safety M7 PT-IP Assessment and Plan Start: 07/21/18 13:21 Freq: NEEDED Status: Active Protocol: Document 07/22/18 10:20 [facility] (Rec: 07/22/18 11:49 [facility] [id number]) PT Summary Assessment and Plan Summary Assessment Summary POD #2. Pt able to ambulate further today, slightly increased gait speed today. Pt will require further ongoing PT to continue to progress her mobility. Her sister arrived shortly after this session, and would benefit from being present during PT sessions for training prior to d/c. Goals Bed Mobility Goal Independent Transfer Goal Independent Gait Goal Independent Gait Distance 300 Days to Meet Goals 10 Frequency of Treatment Frequency Of Treatment Once a Day Treatment Plan Other Recommendations and Next Treatment cont. to progress bed mobility Focus , gait as tolerated. Recommendations To Nursing Amount of Assist Needed 1 Person Assist Discharge Recommendations PT Discharge Recommendations Home with 12/12 Assist
--- NOTE | 2018-07-22 10:56 | CM.DPC ---
DCP Cont: Per PT, pt was able to ambulate some in the room and definitely not back to baseline since her recent surgery and PT will continue to work with the pt to increase her strength. Per RN, pt had increased pain yesterday after mobilizing and increased her epidural for pain. Patient still likely here another few days pending progress. Pt's family arrived early this morning. Plan: SW to continue to follow after further PT and for pain to decrease towards likely d/c to a possible hotel with sister while awaiting f/u appointment with Dr. Gutierrez before eventual return back to [place]. JOSTIN Patel
--- NOTE | 2018-07-22 12:00 | PM.PN.1 ---
Subjective Date Patient Seen: 07/22/18 Time Patient Seen: 12:00 Interval history: Patient having some crampy abdominal pain intermittently. No flatus or bowel function as yet. No nausea or vomiting however. Denies any chest pain or shortness of breath. Ambulated with physical therapy in the hallway today. Tolerated this well. Pain is otherwise well controlled although she did require an epidural bolus this morning which was effective. Patient's sister arrived this morning from [place]. Exam Vital Signs (past 8 hours): - 07/22/18 04:18 07/22/18 08:00 Temperature 100.1 F H 99.2 F Pulse Rate 70 Respiratory Rate 18 Blood Pressure 99/66 Pulse Oximetry 93 Oxygen Delivery Method Room Air Oxygen Flow Rate 0 Narrative Exam Narrative: Thin female in no acute distress. Alert oriented x3. Sitting in bedside chair after her walk in no acute distress. She is in better spirits today. Her sister is present during my entire visit. Low-grade temperature yesterday with maximum of approximately 100.4? now normalized. No tachycardia and normal blood pressure however. Adequate urine output. Urine is clear in the Guthrie bag. Chest clear to auscultation today with regular rate and rhythm. No murmurs. No crackles or wheezes. Abdomen remains mildly distended but soft. She is appropriately tender. Dressing is clean, dry, and intact Extremities show no clubbing or cyanosis Objective Labs Result Diagrams: 07/22/18 05:20 07/22/18 05:20 Labs: Laboratory Results - last 24 hr 07/22/18 07/22/18 05:20 05:20 WBC 8.8 RBC 2.91 L Hgb 9.4 L Hct 27.6 L MCV 94.7 MCH 32.5 MCHC 34.3 RDW 14.5 Plt Count 180 Neut % (Auto) 64.6 D Lymph % (Auto) 25.3 [place] % (Auto) 7.8 Eos % (Auto) 2.0 Baso % (Auto) 0.3 Neut # (Auto) 5700 Lymph # (Auto) 2200 [place] # (Auto) 700 Eos # (Auto) 200 Baso # (Auto) 0 Sodium 136 L Potassium 3.6 Chloride 106 Carbon Dioxide 25 BUN 12 Creatinine 0.80 Estimated GFR > 60.0 BUN/Creatinine Ratio 15.0 Glucose 87 Calcium 7.7 L Assessment & Plan Assessment & Plan narrative: 57-year-old female postoperative day 2 from 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 I suspect low-grade temperature was due to atelectasis. She is now more ambulatory today and we will continue to mobilize her aggressively. Again strongly encouraged incentive spirometry, cough, and deep breathing particularly with her history of tobacco use. White blood cell count is normal, and I see no evidence of infectious complications at this early stage. We will continue clear liquids only and await bowel function. Continue epidural catheter for now, but I suspect we will begin to wean the infusion and potentially discontinue the catheter within the next 24-36 hr. Will discussed with anesthesiology. Subsequently removed the Guthrie catheter once the epidural has been discontinued. She is now off of all prophylactic postoperative antibiotics and we will observe at this point. I again discussed the operative findings and anticipated recovery with the patient and her sister today. Also discussed potential continuity of care plans once she returns home to [place]. All questions were answered to her satisfaction, and she voiced understanding. Orders were written. Case reviewed with the attending nurse.
[2018-07-22] MEDS: FENT 2MCG/BUPIV 0.125% EPI 2 MCG/100 ML PLAST..BAG 8 MCG EPIDURAL (12:23)
[2018-07-22] MEDS: HYDROMORPHONE 1 MG INJ IV (15:31)
--- NOTE | 2018-07-22 16:17 | PM.PN.1 ---
Subjective Date Patient Seen: 07/22/18 Time Patient Seen: 09:17 Interval history: Tolerating clears, required IV dilaudid overnight for breakthrough pain. Epidural in place, running 0.125%bupiv with fentanyl 2mcg/mL at 8mL/h. Reports no pain at rest, though some soreness with movement. Able to get out of bed and ambulate with walker. Exam Vital Signs (past 8 hours): - 07/22/18 12:00 07/22/18 13:02 07/22/18 14:44 Temperature 101.1 F H 101.5 F H 99.1 F Pulse Rate 81 Respiratory Rate 18 Blood Pressure 113/57 L Pulse Oximetry 99 07/22/18 15:31 Temperature 100 F H Pulse Rate Respiratory Rate Blood Pressure Pulse Oximetry Oxygen Delivery Method Room Air Oxygen Flow Rate 0 Narrative Exam Narrative: Alert, comfortable appearing, conversant. Loss of cold sensation still mostly RUQ with some overlap of incision to RLQ. Sensation intact left side. Epidural insertion site and bandage c/d/i. No erythema or TTP. Objective Labs Result Diagrams: 07/22/18 05:20 07/22/18 05:20 Labs: Laboratory Results - last 24 hr 07/22/18 07/22/18 05:20 05:20 WBC 8.8 RBC 2.91 L Hgb 9.4 L Hct 27.6 L MCV 94.7 MCH 32.5 MCHC 34.3 RDW 14.5 Plt Count 180 Neut % (Auto) 64.6 D Lymph % (Auto) 25.3 [place] % (Auto) 7.8 Eos % (Auto) 2.0 Baso % (Auto) 0.3 Neut # (Auto) 5700 Lymph # (Auto) 2200 [place] # (Auto) 700 Eos # (Auto) 200 Baso # (Auto) 0 Sodium 136 L Potassium 3.6 Chloride 106 Carbon Dioxide 25 BUN 12 Creatinine 0.80 Estimated GFR > 60.0 BUN/Creatinine Ratio 15.0 Glucose 87 Calcium 7.7 L Assessment & Plan Assessment & Plan narrative: Now POD#2 for exploratory laparotomy with ileocecal resection, tolerating clears with good bowel sounds and pain adequately controlled, though requiring some IV dilaudid. TEP perhaps helping with some surgical pain, but incomplete coverage, now with R side coverage only which did not resolve with bolus and increased rate. Will continue at current rate with IV pain meds available for breakthrough. Will reassess tomorrow and consider capping epidural to test contribution to pain management.
[2018-07-22] MEDS: HYDROMORPHONE PCA (6MG/30ML) 6 MG/30 ML PCA.VIAL IV ×2 (18:03→22:43)
--- NOTE | 2018-07-22 19:48 | PC.NURSE ---
Addendum entered by Ashanti Marshall R.N. 07/22/18 19:49: 15:30- pt with no sensation block to left side. Pt has cold sensation block to right side from T9-L1. Pt c/o right side abd pain; medicated with one mg dilaudid. 17:00- Dr. Gutierrez here to see pt and remove abd drsg. Sutures CDI and well approximated. 17:15- getting pt to sitting position at edge of bed, found epidural disconnected. Called Dr. Sibley from anesthesia who was in house, and he came and removed epidural catheter. 17:25- called Dr. Gutierrez to inform him of epidural removal. Dr. Gutierrez to order CHART CLERK. Original Note: leonor velasquez
[2018-07-22] MEDS: GABAPENTIN 300 MG CAPSULE PO (22:39)
[2018-07-23 03:24] VITALS: BP 119/57; PULSE 86; RESP 17; TEMP 37.9; O2SAT 91
[2018-07-23 05:01] LABS: Add Manual Diff / Slide Review NO; Basophils Absolute Auto 0 /uL (0-100); Basophils Percent Auto 0.3 % (0-2); Eosinophils Absolute Auto 400 /uL (0-450); Eosinophils Percent Auto 4.7 % (2-4); Hemoglobin 9.9 g/dL (12.0-16.0); Lymphocytes Absolute Auto 1400 /uL (1100-4500); Mean Corpuscular HGB Conc 34.2 % (30-36); Mean Corpuscular Hemoglobin 32.4 PG (26-34); Mean Corpuscular Volume 94.7 fL (80-100); Monocytes Absolute Auto 600 /uL (0-900); Monocytes Percent Auto 7.2 % (3-14); Neutrophils Absolute Auto 6200 /uL (1500-7000); Neutrophils Percent Auto 71.8 % (50-75); Platelet Count 204 X10^3/uL (150-400); Red Blood Cell Count 3.06 X10^6/uL (4.0-5.2); Red Cell Distribution Width 14.4 % (11.6-14.8); White Blood Cell Count 8.7 X10^3/uL (4.5-11.0)
[2018-07-23 05:08] LABS: Lactate (Lactic Acid) < 0.5 mmol/L (0.7-2.1)
[2018-07-23 05:10] LABS: Alanine Aminotransferase 33 IU/L (9-52); Albumin 2.8 g/dL (3.5-5.0); Albumin Globulin Ratio 1.1 (1.0-2.8); Alkaline Phosphatase 51 U/L (38-126); Aspartate Aminotransferase 44 IU/L (14-36); BUN Creatinine Ratio 12.9 (6-22); Bilirubin Total 0.4 mg/dL (0.2-1.3); Blood Urea Nitrogen 9 mg/dL (7-17); Calcium 7.8 mg/dL (8.4-10.2); Carbon Dioxide 26 mmol/L (22-32); Chloride 103 mmol/L (98-107); Estimated Glomerular Filt Rate > 60.0 mL/min (>60); Globulin 2.5 g/dL (1.7-4.1); Glucose 94 mg/dL (70-100); HEMOLYSIS < 15 (0-50); Potassium 3.5 mmol/L (3.4-5.1); Sodium 135 mmol/L (137-145); Total Protein 5.3 g/dL (6.3-8.2)
[2018-07-23 05:39] LABS: Procalcitonin 1.02 ng/mL (<0.5)
[2018-07-23] MEDS: SODIUM CHLORIDE 0.9% 1,000 ML 85 ML IV (05:57)
[2018-07-23] MEDS: NICOTINE 7 MG PATCH TOP (07:35)
[2018-07-23 07:44] VITALS: BP 107/45; PULSE 74; RESP 16; TEMP 37.4; O2SAT 94
[2018-07-23] MEDS: HYDROMORPHONE PCA (6MG/30ML) 6 MG/30 ML PCA.VIAL IV ×4 (07:48→22:22)
[2018-07-23] MEDS: PANTOPRAZOLE 40 MG VIAL IV (09:09)
[2018-07-23] MEDS: GABAPENTIN 300 MG CAPSULE PO ×2 (09:09→22:22)
[2018-07-23] MEDS: ENOXAPARIN 30 MG/0.3 ML SYRINGE SUBCUT (09:09)
--- NOTE | 2018-07-23 09:50 | PT.IPTN ---
Current Diagnoses Chronic vascular disorders of intestine (07/20/18) Surgery Performed Operation Date: 07/20/18 16:50 Actual Procedures p Exploratory Laparotomy, Illeocecectomy, Illeocolonic anastomosis - Rayshawn Gutierrez MD Physical Therapy Treatment Note M2 PT-IP Current Condition Start: 07/21/18 13:21 Freq: NEEDED Status: Active Protocol: Document 07/21/18 11:58 RCC (Rec: 07/21/18 13:34 RCC [email or web address]) Physical Therapy Current Condition Current Condition Evaluation Date 07/21/18 Treatment Diagnosis ex. lap. ileocecectomy 07/20/18, impaired activity tolerance and gait Onset Date 07/20/18 Precautions Abdominal Surgery Precautions Log Roll Lifting Restrictions Gait Belt above Incisional Area Other Precautions still currently with epidural on evaluation 07/21/18 M3 PT-IP Subjective Start: 07/21/18 13:21 Freq: NEEDED Status: Active Protocol: Document 07/23/18 09:20 CLB (Rec: 07/23/18 09:50 CLB [email or web address]) Subjective Physical Therapy Visit Type Type Treatment Note Visit Start Time 09:20 Visit Stop Time 09:23 Total Visit Minutes 23 Number of TRUSS ASSEMBLER Visits 1 Physical Therapy Visit Comments Patient Comments Pt agreeable to do therapy. Therapy Pain Assessment Pain When Pain Assessed During Mobility Pain Present Pain Present Pain Reported Location abd Intensity 6 Scale Used Numeric (1 - 10) M4 PT-IP Mobility and Gait Start: 07/21/18 13:21 Freq: NEEDED Status: Active Protocol: Document 07/23/18 09:20 CLB (Rec: 07/23/18 09:50 CLB [email or web address]) PT-Bed Mobility Assessment Rolling Type of Rolling Log Rolling Level of Assist Standby Assistance Supine to Sit Supine to Sit Standby Assistance Head of Bed Elevated Scooting Scooting to Edge of Bed Standby Assistance PT-Transfer Assessment Sit to and From Stand Sit to and from Stand Standby Assistance Equipment Transfer Assistive Device Bed Rail Front Wheeled Walker Transfers Transfer Destination Chair Transfer Technique Stand Step Pivot Transfer Ability Level of Assist Standby Assistance Gait Assessment Gait Gait Assistance Required: Standby Assistance Distance (Feet) 40 Assistive Devices Assistive Device Gait Belt Front Wheeled Walker Gait Deviations General Gait Pattern Antalgic Decreased Stride Length Decreased Feet Clearance Flexed Trunk Narrow Based Gait Factors Limiting Gait Function Factors Limiting Gait Function Decreased Activity Tolerance Decreased Strength Pain Comments Gait Comments Pt continues with slow gait due to pain but has good safety awareneess and balance. M5 PT-IP Objective Assessments Start: 07/21/18 13:21 Freq: NEEDED Status: Active Protocol: Document 07/21/18 11:58 RCC (Rec: 07/21/18 13:34 RCC [email or web address]) Orientation Orientation/Cognition Level of Alertness Alert Orientation Name Age Birthday Month Date Year Day of Week Place Situation Language Function Ability No Deficits Noted Safety Awareness Understands Safety Issues Memory Description No Deficits Noted Strength Lower Extremity Strength Ankle DF 5/5 Comments Strength Comments LE MMT not performed d/t surgery- able to perform light SLR to clear heels off of bed . Coordination Assessment Gross Coordination Gross Coordination WNL Sensation Assessment Sensation Gross Sensation WNL Light Touch Intact Muscle Tone Muscle Tone WNL Yes M6 PT-IP Treatment Start: 07/21/18 13:21 Freq: NEEDED Status: Active Protocol: Document 07/21/18 11:58 RCC (Rec: 07/21/18 13:34 RCC [email or web address]) Physical Therapy Treatment Education Education Provided Precautions Safety M7 PT-IP Assessment and Plan Start: 07/21/18 13:21 Freq: NEEDED Status: Active Protocol: Document 07/23/18 09:20 CLB (Rec: 07/23/18 09:50 CLB [email or web address]) PT Summary Assessment and Plan Summary Assessment Summary Pt progressed bed mobility and is SBA for log roll, sup-sit. Pt increased ambulation to ~ 40ft, pt ambulates with small step through gait pattern with slow pacing. Pt has good safety awareness and balance. Pt Monica velasquez has arrived to assist pt and will be available for CGT 07/24 at 10:00 . Goals Bed Mobility Goal Independent Transfer Goal Independent Gait Goal Independent Gait Distance 300 Days to Meet Goals 10 Frequency of Treatment Frequency Of Treatment Once a Day Treatment Plan Other Recommendations and Next Treatment cont. to progress bed mobility Focus , gait as tolerated. Sister Monica will be available for CGT on 07/24 at 10:00. Recommendations To Nursing Amount of Assist Needed 1 Person Assist Discharge Recommendations PT Discharge Recommendations Home with 12/12 Assist Other Discharge Recommendations assist while staying local vs. SNF rehabilitation
[2018-07-23 11:00] VITALS: BP 114/72; PULSE 78; RESP 16; TEMP 36.6; O2SAT 96
--- NOTE | 2018-07-23 11:03 | PM.PN.1 ---
Subjective Date Patient Seen: 07/23/18 Time Patient Seen: 11:03 Interval history: Denies any significant pain other than intermittent abdominal cramping. No flatus or bowel movement as yet however. No nausea or vomiting. Denies any chest pain or shortness of breath. No subjective fever or chills although she continues to have low-grade temperature overnight. Overall feeling well per her report. Exam Vital Signs (past 8 hours): - 07/23/18 03:24 07/23/18 07:44 Temperature 100.3 F H 99.3 F Pulse Rate 86 74 Respiratory Rate 17 16 Blood Pressure 119/57 L 107/45 L Pulse Oximetry 91 94 Oxygen Delivery Method Room Air Oxygen Flow Rate 0 Narrative Exam Narrative: Patient sitting in bedside chair in no acute distress. Alert orient x3. She is in good spirits. Sisters at the bedside for my entire visit. sclera nonicteric chest clear to auscultation bilaterally with regular rate rhythm. No murmurs. No crackles or wheezes. abdomen is minimally distended and mildly tympanitic but soft. She is appropriately tender without guarding or rebound. Incision remains clean, dry, and intact without erythema or ecchymosis. No drainage. No hematoma or seroma. She has a few hypoactive bowel sounds. extremities show no clubbing or cyanosis Objective Labs Result Diagrams: 07/23/18 04:48 07/23/18 04:48 Labs: Laboratory Results - last 24 hr 07/23/18 07/23/18 07/23/18 04:48 04:48 04:48 WBC 8.7 RBC 3.06 L Hgb 9.9 L Hct 29.0 L MCV 94.7 MCH 32.4 MCHC 34.2 RDW 14.4 Plt Count 204 Neut % (Auto) 71.8 Lymph % (Auto) 16.0 L Anson % (Auto) 7.2 Eos % (Auto) 4.7 H Baso % (Auto) 0.3 Neut # (Auto) 6200 Lymph # (Auto) 1400 Anson # (Auto) 600 Eos # (Auto) 400 Baso # (Auto) 0 Sodium 135 L Potassium 3.5 Chloride 103 Carbon Dioxide 26 BUN 9 Creatinine 0.70 Estimated GFR > 60.0 BUN/Creatinine Ratio 12.9 Glucose 94 Lactate Calcium 7.8 L Total Bilirubin 0.4 AST 44 H ALT 33 Alkaline Phosphatase 51 Total Protein 5.3 L Albumin 2.8 L Globulin 2.5 Albumin/Globulin Ratio 1.1 Procalcitonin 1.02 H 07/23/18 04:48 WBC RBC Hgb Hct MCV MCH MCHC RDW Plt Count Neut % (Auto) Lymph % (Auto) Anson % (Auto) Eos % (Auto) Baso % (Auto) Neut # (Auto) Lymph # (Auto) Anson # (Auto) Eos # (Auto) Baso # (Auto) Sodium Potassium Chloride Carbon Dioxide BUN Creatinine Estimated GFR BUN/Creatinine Ratio Glucose Lactate < 0.5 L Calcium Total Bilirubin AST ALT Alkaline Phosphatase Total Protein Albumin Globulin Albumin/Globulin Ratio Procalcitonin Assessment & Plan Assessment & Plan narrative: 57-year-old female postoperative day 3 from 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 Bowel function is slowly returning. Pain is well controlled on ETL BI DEVELOPER currently now that the epidural is removed. Guthrie catheter to be removed today. Other than her fever and mildly elevated procalcitonin level there appears to be no evidence of any infectious complications. I am concerned, however, that she may harbor a small amount of peritoneal contamination from the time of the anastomosis. I see no other evidence of infectious etiology. I will therefore restart her Zosyn. If she continues to have fevers despite antibiotics then planned blood cultures and urine culture as well. Overall, however, she appears to be clinically quite stable and doing well. Continue incentive spirometry. Out of bed and ambulate as much tolerated. Continue clear liquid diet until increased bowel function. May require rectal suppository tomorrow if no significant bowel function. I discussed this with her. All questions answered to her satisfaction, and she voiced understanding. Orders were written.
[2018-07-23] MEDS: PIPERACILLIN-TAZO 3.375 GM/50 ML FROZ.PIGGY IV ×2 (11:24→17:19)
[2018-07-23] MEDS: DEXTROSE 5%-0.45NS W/KCL 40MEQ 1,000 ML 84 MEQ IV (11:24)
[2018-07-23 15:03] VITALS: BMI 21.0
[2018-07-23 15:46] VITALS: BP 109/58; PULSE 68; RESP 18; TEMP 37.6; O2SAT 95
--- NOTE | 2018-07-23 15:55 | CM.DPC ---
DCP/continued: Received call from patient and sister/Monica ph# [phone] re: d/c planning needs. Patient's sister has arrived from [place]. Met with patient and sister explained role. Sister here for a few days to assist patient with paperwork and d/c planning needs. Current recommendation is SNF vs. 24/7 care. Patient had epidural removed and has started to move a bit more today. Patient also had SOLID FIBER PASTER OPERATOR discontinued. Patient hopeful that she will feel more like herself when she discharges. Patient's insurance through [employer] (employer). Dr. Gutierrez made aware that patient has 1 page document that needs to be completed for insurance. Contact at [facility] is Kelby Mcdermott ph# [phone]. Patient hopes to go to [facility] when medically stable. Patient plans to stay in [place] for a few weeks for surgery follow up prior to returning to [place]. Notified patient that CM team would follow closely for needs. Patient aware that she needs to be more I with her ADL's to go to [facility] at time of d/c. Patient reports that she will be working hard over the next 24-48hrs to d/c to hotel vs. SNF. P: OPERATIONS ADMINISTRATIVE ASSISTANT to fax completed paperwork back to [facility] when completed by surgeon. Will also plan to discuss with Kelby re: d/c planning needs and what [facility] will cover/authorize. JOSTIN Montgomery
[2018-07-23 19:56] VITALS: BP 126/71; PULSE 88; RESP 19; TEMP 38.2
[2018-07-23 23:36] VITALS: BP 101/58; PULSE 82; RESP 18; TEMP 37.8; O2SAT 91
[2018-07-24] VITALS (7 sets, daily range): BP systolic 93–137; BP diastolic 34–72; PULSE 75–82; RESP 15–18; TEMP 36.9–37.7; O2SAT 92–96
[2018-07-24] MEDS: DEXTROSE 5%-0.45NS W/KCL 40MEQ 1,000 ML 84 MEQ IV (00:17)
[2018-07-24] MEDS: PIPERACILLIN-TAZO 3.375 GM/50 ML FROZ.PIGGY IV ×5 (00:20→22:37)
[2018-07-24 05:07] LABS: Add Manual Diff / Slide Review NO; Basophils Absolute Auto 0 /uL (0-100); Basophils Percent Auto 0.3 % (0-2); Eosinophils Absolute Auto 700 /uL (0-450); Eosinophils Percent Auto 10.7 % (2-4); Hematocrit 28.1 % (36-46); Hemoglobin 9.7 g/dL (12.0-16.0); Lymphocytes Absolute Auto 1100 /uL (1100-4500); Lymphocytes Percent Auto 16.4 % (25-40); Mean Corpuscular HGB Conc 34.5 % (30-36); Mean Corpuscular Hemoglobin 32.5 PG (26-34); Mean Corpuscular Volume 94.2 fL (80-100); Monocytes Absolute Auto 600 /uL (0-900); Monocytes Percent Auto 9.4 % (3-14); Neutrophils Absolute Auto 4100 /uL (1500-7000); Neutrophils Percent Auto 63.2 % (50-75); Platelet Count 239 X10^3/uL (150-400); Red Blood Cell Count 2.98 X10^6/uL (4.0-5.2); Red Cell Distribution Width 13.8 % (11.6-14.8); White Blood Cell Count 6.4 X10^3/uL (4.5-11.0)
[2018-07-24 05:39] LABS: Procalcitonin 0.65 ng/mL (<0.5)
[2018-07-24] MEDS: PANTOPRAZOLE 40 MG VIAL IV (09:08)
[2018-07-24] MEDS: ENOXAPARIN 40 MG/0.4 ML SYRINGE SUBCUT (09:12)
[2018-07-24] MEDS: GABAPENTIN 300 MG CAPSULE PO ×2 (09:12→21:27)
[2018-07-24] MEDS: NICOTINE 7 MG PATCH TOP (09:12)
[2018-07-24] MEDS: SIMETHICONE 80 MG TABLET PO (09:13)
[2018-07-24] MEDS: HYDROMORPHONE PCA (6MG/30ML) 6 MG/30 ML PCA.VIAL IV ×2 (09:21→19:53)
--- NOTE | 2018-07-24 11:32 | PT.IPTN ---
Current Diagnoses Chronic vascular disorders of intestine (07/20/18) Surgery Performed Operation Date: 07/20/18 16:50 Actual Procedures p Exploratory Laparotomy, Illeocecectomy, Illeocolonic anastomosis - Rayshawn Gutierrez MD Physical Therapy Treatment Note M2 PT-IP Current Condition Start: 07/21/18 13:21 Freq: NEEDED Status: Active Protocol: Document 07/21/18 11:58 RCC (Rec: 07/21/18 13:34 RCC [email or web address]) Physical Therapy Current Condition Current Condition Evaluation Date 07/21/18 Treatment Diagnosis ex. lap. ileocecectomy 07/20/18, impaired activity tolerance and gait Onset Date 07/20/18 Precautions Abdominal Surgery Precautions Log Roll Lifting Restrictions Gait Belt above Incisional Area Other Precautions still currently with epidural on evaluation 07/21/18 M3 PT-IP Subjective Start: 07/21/18 13:21 Freq: NEEDED Status: Active Protocol: Document 07/24/18 10:21 RS (Rec: 07/24/18 11:32 RS [id number]) Subjective Physical Therapy Visit Type Type Treatment Note Visit Start Time 09:28 Visit Stop Time 10:21 Total Visit Minutes 53 Number of ELIGIBILITY EXAMINER Visits 0 Physical Therapy Visit Comments Patient Comments Pt reports feeling better today, getting more motivated every day. Therapy Pain Assessment Pain When Pain Assessed At Rest Pain Present Pain Present Pain Reported M4 PT-IP Mobility and Gait Start: 07/21/18 13:21 Freq: NEEDED Status: Active Protocol: Document 07/24/18 10:21 RS (Rec: 07/24/18 11:32 RS [id number]) PT-Transfer Assessment Sit to and From Stand Sit to and from Stand Standby Assistance Equipment Transfer Assistive Device Front Wheeled Walker Transfers Transfer Destination Chair Transfer Technique walked Transfer Ability Level of Assist Standby Assistance Comments Mobility Comments Pt is SBA for transfers with FWW with partial set-up, also needing assist to manage IV pole. Gait Assessment Gait Gait Assistance Required: Standby Assistance Distance (Feet) 120 Assistive Devices Assistive Device Front Wheeled Walker Gait Deviations General Gait Pattern Antalgic Decreased Stride Length Decreased Feet Clearance Flexed Trunk Narrow Based Gait Factors Limiting Gait Function Factors Limiting Gait Function Decreased Activity Tolerance Decreased Strength Pain Comments Gait Comments gait continues to be slow with short steps, however, pt is very steady without LOB. Pt is also barely using the FWW, will try next time without AD. Stair Climbing Assessment Comments Stair Climbing Comments not tested PT-Balance Assessment Sitting Balance and Reactions Static Sitting Balance Ability Normal Dynamic Sitting Balance Ability Good Standing Balance and Reactions Static Standing Balance Ability Good Dynamic Standing Balance Ability Good Device Used FWW M5 PT-IP Objective Assessments Start: 07/21/18 13:21 Freq: NEEDED Status: Active Protocol: Document 07/21/18 11:58 RCC (Rec: 07/21/18 13:34 RCC [email or web address]) Orientation Orientation/Cognition Level of Alertness Alert Orientation Name Age Birthday Month Date Year Day of Week Place Situation Language Function Ability No Deficits Noted Safety Awareness Understands Safety Issues Memory Description No Deficits Noted Strength Lower Extremity Strength Ankle DF 5/5 Comments Strength Comments LE MMT not performed d/t surgery- able to perform light SLR to clear heels off of bed . Coordination Assessment Gross Coordination Gross Coordination WNL Sensation Assessment Sensation Gross Sensation WNL Light Touch Intact Muscle Tone Muscle Tone WNL Yes M6 PT-IP Treatment Start: 07/21/18 13:21 Freq: NEEDED Status: Active Protocol: Document 07/24/18 10:21 RS (Rec: 07/24/18 11:32 RS [id number]) Physical Therapy Treatment Other Treatments Other Treatment Performed discussed need for legs being elevated when OOB to help with swelling in lower pelvis and distally into BLE, also educated on ankle pumps to be done throughout the day as well as periodic LAQ and seated marching to be done inbetween walks. M7 PT-IP Assessment and Plan Start: 07/21/18 13:21 Freq: NEEDED Status: Active Protocol: Document 07/24/18 10:21 RS (Rec: 07/24/18 11:32 [id number]) PT Summary Assessment and Plan Potential Rehabilitation Potential Excellent Status of Condition at Evaluation Evolving Summary Impairments Pain Strength Bed Mobility Transfers Gait Activity Tolerance Progress Towards Goals Progressing Toward Goals Slow Progress due to Pain Slow Progress due to Medical Issues Assessment Summary POD#4. Pt able to walk at least 120ft today without stopping. Goal is to walk at least 1x every 3 hours. Gait remains slow but is steady with minimal reliance on FWW. Will trial no AD next session. Pt does have firm swelling in pelvis (including genitals) and into BLE. Positioning and simple BLE AROM education was provided, but RN was also notified. Pt will be safe to discharge to a home or hotel setting once medically ready but will greatly benefit from ongoing acute PT in the mean time to continue to improve pt 's functional safety and independence. Goals Bed Mobility Goal Independent Transfer Goal Independent Gait Goal Independent Gait Distance 300 Days to Meet Goals 7 Frequency of Treatment Frequency Of Treatment Once a Day Treatment Plan Other Recommendations and Next Treatment trial gait without AD, Focus progress gait distance as able (possibly walk to stairs for trial w/ a wc follow) Recommendations To Nursing Amount of Assist Needed 1 Person Assist Discharge Recommendations PT Discharge Recommendations Home with Assistance Outpatient PT
--- NOTE | 2018-07-24 12:54 | CM.DPC ---
DCP/continued: Reviewed chart. Spoke with PT after session today. Patient did very well and SNF no longer recommended. Met briefly with patient to discuss whether or she has heard if paperwork completed by surgeon. Patient and sister report that they have not seen Dr. Gutierrez today. With patient's permission placed call to [employer] [facility] Kelby Mcdermott ph# [phone] she reports that she will be coordinating all discharge planning needs. Kelby has spoken to patient and she anticipates that her company will be paying for patient to stay in [place] for 1-2wks to f/u with Dr. Gutierrez and have haydee removed. Kelby reports that they have satellite office in [place]. Kelby requesting update re: d/c date because she will be making all outpatient arrangements. Provided Kelby with name/number of PICK AND SHOVEL WORKER desk. Kelby requesting any information pertaining to discharge be faxed to her directly to [phone]. P: Pending. Patient expected to d/c to [facility] after hospitalization. Patient progressing well with therapy and Company would like for her to stay in [place] until f/u appointment and haydee removed by Dr. Gutierrez. Kelby confirms that patient will be alone in [facility] unless family can stay with her. Therapy report patient progressing well. JOSTIN Montgomery
[2018-07-24] MEDS: NICOTINE 14 PATCH 14 MG TOP (14:32)
[2018-07-24] MEDS: DEXTROSE 5%-0.45NS W/KCL 40MEQ 1,000 ML 21 MEQ IV (14:52)
--- NOTE | 2018-07-24 20:15 | PM.PN.1 ---
Subjective Date Patient Seen: 07/24/18 Time Patient Seen: 20:15 Interval history: Patient complaining of abdominal wall edema extending into the genitalia and bilateral thighs. Also complaining of crampy abdominal pain but more tender on the right side today. No flatus or bowel movement as yet. However, she is tolerating clear liquids without any issues. She is having absolutely no nausea or vomiting. Ambulating about the unit with assistance. No dysuria or hematuria. Denies chest pain or shortness of breath. Pain is currently controlled with PRINTING MECHANIST. Exam Vital Signs (past 8 hours): - 07/24/18 13:00 07/24/18 16:00 Temperature 99.3 F Pulse Rate 79 78 Respiratory Rate 16 15 Blood Pressure 93/34 L 121/72 Pulse Oximetry 96 95 Oxygen Delivery Method Room Air Oxygen Flow Rate 0 Narrative Exam Narrative: Well-nourished well-developed female sitting comfortably in bedside chair in no acute distress. She is alert and oriented x3. She is in excellent spirits. Sclera nonicteric chest clear to auscultation bilaterally without crackles or wheezes regular rate and rhythm she has been afebrile now for nearly 24 hr. Maximal temperature is 100.0? abdomen is somewhat tense and there is clear soft tissue edema from the umbilicus down to the knees bilaterally. Edema extends to the buttocks. Edema is not pitting however. Wound is clean, dry, and intact without erythema or ecchymosis. No hematoma or seromas. No wound drainage. No blisters or subcutaneous emphysema along the abdominal wall. She is diffusely tender to palpation without guarding or rebound but she does have some voluntary guarding in the right lateral abdomen. Abdomen remains relatively quiet however on auscultation. Extremities are as above with edema in the bilateral thighs. Skin is mildly tense secondary to edema. No significant ankle edema however. Objective Labs Result Diagrams: 07/24/18 04:49 07/23/18 04:48 Labs: Laboratory Results - last 24 hr 07/24/18 07/24/18 04:49 04:49 WBC 6.4 RBC 2.98 L Hgb 9.7 L Hct 28.1 L MCV 94.2 MCH 32.5 MCHC 34.5 RDW 13.8 Plt Count 239 Neut % (Auto) 63.2 Lymph % (Auto) 16.4 L Canadian % (Auto) 9.4 Eos % (Auto) 10.7 H Baso % (Auto) 0.3 Neut # (Auto) 4100 Lymph # (Auto) 1100 Canadian # (Auto) 600 Eos # (Auto) 700 H Baso # (Auto) 0 Procalcitonin 0.65 H White blood cell count remains normal with normal differential. Electrolytes are unremarkable. Hemoglobin stable. Procalcitonin is normalizing. No new radiographic studies for review Assessment & Plan Assessment & Plan narrative: 57-year-old female postoperative day 4 from laparotomy with ileocecectomy and ileocolonic anastomosis for cecal volvulus who continues to experience postoperative ileus. Ileus is not unanticipated given the nature of her disease and required operation. However, she is sequestered ring 3rd space soft tissue edema. Attempt gentle diuresis with Lasix. Her fluids are at KVO rate. Continue Dilaudid PRINTING MECHANIST at current settings. Apply thigh-high compression stockings bilaterally to assist with the edema. Continue to ambulate aggressively. Assist bowel function with rectal suppository. I see no evidence of intra-abdominal or soft tissue infection at this time. Continue Zosyn however given mildly elevated procalcitonin and her recent fever curve. I do not see evidence of compelling allergic reaction any medication, including the Zosyn. However, will give Benadryl as needed for some occasional itching. Repeat laboratory studies tomorrow. If she does not show any signs of significant improvement by tomorrow then obtained three view abdominal series. All the above discussed with the patient at length. Questions answered to her satisfaction. Case reviewed with the attending nurse. Orders written.
--- NOTE | 2018-07-24 20:22 | P.PN_ITS ---
Subjective Date Patient Seen: 07/24/18 Time Patient Seen: 20:15 Interval history: Patient complaining of abdominal wall edema extending into the genitalia and bilateral thighs. Also complaining of crampy abdominal pain but more tender on the right side today. No flatus or bowel movement as yet. However, she is tolerating clear liquids without any issues. She is having absolutely no nausea or vomiting. Ambulating about the unit with assistance. No dysuria or hematuria. Denies chest pain or shortness of breath. Pain is currently controlled with FREIGHT RECEIVER. Exam Vital Signs (past 8 hours): - 07/24/18 13:00 07/24/18 16:00 Temperature 99.3 F Pulse Rate 79 78 Respiratory Rate 16 15 Blood Pressure 93/34 L 121/72 Pulse Oximetry 96 95 Oxygen Delivery Method Room Air Oxygen Flow Rate 0 Narrative Exam Narrative: Well-nourished well-developed female sitting comfortably in bedside chair in no acute distress. She is alert and oriented x3. She is in excellent spirits. Sclera nonicteric chest clear to auscultation bilaterally without crackles or wheezes regular rate and rhythm she has been afebrile now for nearly 24 hr. Maximal temperature is 100.0? abdomen is somewhat tense and there is clear soft tissue edema from the umbilicus down to the knees bilaterally. Edema extends to the buttocks. Edema is not pitting however. Wound is clean, dry, and intact without erythema or ecchymosis. No hematoma or seromas. No wound drainage. No blisters or subcutaneous emphysema along the abdominal wall. She is diffusely tender to palpation without guarding or rebound but she does have some voluntary guarding in the right lateral abdomen. Abdomen remains relatively quiet however on ausc ultation. Extremities are as above with edema in the bilateral thighs. Skin is mildly tense secondary to edema. No significant ankle edema however. Objective Labs Result Diagrams: 07/24/18 04:49 07/23/18 04:48 Labs: Laboratory Results - last 24 hr 07/24/18 07/24/18 04:49 04:49 WBC 6.4 RBC 2.98 L Hgb 9.7 L Hct 28.1 L MCV 94.2 MCH 32.5 MCHC 34.5 RDW 13.8 Plt Count 239 Neut % (Auto) 63.2 Lymph % (Auto) 16.4 L [place] % (Auto) 9.4 Eos % (Auto) 10.7 H Baso % (Auto) 0.3 Neut # (Auto) 4100 Lymph # (Auto) 1100 [place] # (Auto) 600 Eos # (Auto) 700 H Baso # (Auto) 0 Procalcitonin 0.65 H White blood cell count remains normal with normal differential. Electrolytes are unremarkable. Hemoglobin stable. Procalcitonin is normalizing. No new radiographic studies for review Assessment & Plan Assessment & Plan narrative: 57-year-old female postoperative day 4 from laparotomy with ileocecectomy and ileocolonic anastomosis for cecal volvulus who continues to experience postoperative ileus. Ileus is not unanticipated given the nature of her disease and required operation. However, she is sequestered ring 3rd space soft tissue edema. Attempt gentle diuresis with Lasix. Her fluids are at KVO rate. Continue Dilaudid FREIGHT RECEIVER at current settings. Apply thigh-high compression stockings bilaterally to assist with the edema. Continue to ambulate aggressively. Assist bowel function with rectal suppository. I see no evidence of intra-abdominal or soft tissue infection at this time. Continue Zosyn however given mildly elevated procalcitonin and her recent fever curve. I do not see evidence of compelling allergic reaction any medication, including the Zosyn. However, will give Benadryl as needed for some occasional itching. Repeat laboratory studies tomorrow. If she does not show any signs of significant improvement by tomorrow then obtained three view abdominal series. All the above discussed with the patient at length. Questions answered to her satisfaction. Case reviewed with the attending nurse. Orders written.
[2018-07-24] MEDS: BISACODYL 10 MG SUPP PR (20:23)
[2018-07-24] MEDS: diphenhydrAMINE 50 MG/ML VIAL 25 MG IV (20:29)
[2018-07-24] MEDS: FUROSEMIDE 20 MG/2 ML VIAL IV (21:24)
--- NOTE | 2018-07-24 22:21 | PC.NURSE ---
Received suppository as ordered, has started to have flatus although no BM. urine output of 1200ml since 20mg IV lasix admin. Thigh high compression stockings applied. Pain well controlled with dilaudid TIE PULLER. midline incision remains open to air well approximated with haydee. No redness or drainage.
[2018-07-25 00:28] VITALS: BP 109/50; PULSE 74; RESP 16; TEMP 35.9; O2SAT 95
[2018-07-25 05:02] LABS: Add Manual Diff / Slide Review NO; Basophils Absolute Auto 0 /uL (0-100); Basophils Percent Auto 0.3 % (0-2); Eosinophils Absolute Auto 600 /uL (0-450); Eosinophils Percent Auto 9.5 % (2-4); Hematocrit 29.5 % (36-46); Hemoglobin 10.1 g/dL (12.0-16.0); Lymphocytes Absolute Auto 1000 /uL (1100-4500); Mean Corpuscular HGB Conc 34.3 % (30-36); Mean Corpuscular Hemoglobin 31.9 PG (26-34); Mean Corpuscular Volume 93.1 fL (80-100); Monocytes Absolute Auto 700 /uL (0-900); Monocytes Percent Auto 9.8 % (3-14); Neutrophils Absolute Auto 4400 /uL (1500-7000); Neutrophils Percent Auto 65.4 % (50-75); Platelet Count 274 X10^3/uL (150-400); Red Blood Cell Count 3.17 X10^6/uL (4.0-5.2); Red Cell Distribution Width 13.8 % (11.6-14.8); White Blood Cell Count 6.8 X10^3/uL (4.5-11.0)
[2018-07-25 05:06] LABS: BUN Creatinine Ratio 5.6 (6-22); Blood Urea Nitrogen 5 mg/dL (7-17); Calcium 8.4 mg/dL (8.4-10.2); Carbon Dioxide 32 mmol/L (22-32); Chloride 95 mmol/L (98-107); Estimated Glomerular Filt Rate > 60.0 mL/min (>60); Glucose 79 mg/dL (70-100); HEMOLYSIS < 15 (0-50); Potassium 3.6 mmol/L (3.4-5.1); Sodium 135 mmol/L (137-145)
[2018-07-25] MEDS: PIPERACILLIN-TAZO 3.375 GM/50 ML FROZ.PIGGY IV ×4 (05:11→23:14)
--- NOTE | 2018-07-25 06:50 | PC.NURSE ---
NOC Shift: Pt POD 5 Cecal volvulus. AAOx3. VSS. OOB to commode independently and to bathroom w/1 PA. 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 Taking clear liquids. Now passing flatulence, and has had a bowel movement on this shift. ABD haydee intact. Stable throughout shift.
[2018-07-25 07:27] VITALS: BP 109/65; PULSE 80; RESP 16; TEMP 38.1; O2SAT 93
[2018-07-25] MEDS: PANTOPRAZOLE 40 MG VIAL IV (08:45)
[2018-07-25] MEDS: ENOXAPARIN 40 MG/0.4 ML SYRINGE SUBCUT (08:45)
[2018-07-25] MEDS: GABAPENTIN 300 MG CAPSULE PO ×2 (08:45→21:22)
--- NOTE | 2018-07-25 09:33 | P.PN_ITS ---
Subjective Date Patient Seen: 07/25/18 Time Patient Seen: 09:31 Interval history: Patient feeling better today. No nausea or vomiting. Pain is well controlled. No subjective fever or chills. No dysuria. Ambulating without significant difficulty. She did have a response to the suppository yesterday and passed a small amount of stool along with flatus. She continues to pass a small amount of flatus this morning. Tolerating her clear liquid diet without any issue. Appetite has not yet returned entirely to normal however. Exam Vital Signs (past 8 hours): - 07/25/18 07:27 Temperature 100.6 F H Pulse Rate 80 Respiratory Rate 16 Blood Pressure 109/65 Pulse Oximetry 93 Oxygen Delivery Method Room Air Oxygen Flow Rate 0 Narrative Exam Narrative: Well-nourished well-developed female sitting comfortably in bedside chair in no acute distress. Alert oriented x3. She is in good spirits Chest clear to auscultation bilaterally with regular rate and rhythm. No crackles or wheezes. Abdomen shows some hypoactive bowel sounds in slightly less distended today. She remains tender in the right lateral abdomen but without involuntary guarding. She is essentially nontender elsewhere. Incision remains clean, dry, and intact without erythema or ecchymosis. No hematoma or seroma. No drainage. No rash today. Her abdominal wall and bilateral lower extremity edema is resolving nicely. She responded well to Lasix yesterday. Objective Labs Result Diagrams: 07/25/18 04:45 07/25/18 04:45 Labs: Laboratory Results - last 24 hr 07/25/18 07/25/18 04:45 04:45 WBC 6.8 RBC 3.17 L Hgb 10.1 L Hct 29.5 L MCV 93.1 MCH 31.9 MCHC 34.3 RDW 13.8 Plt Count 274 Neut % (Auto) 65.4 Lymph % (Auto) 15.0 L [place] % (Auto) 9.8 Eos % (Auto) 9.5 H Baso % (Auto) 0.3 Neut # (Auto) 4400 Lymph # (Auto) 1000 L [place] # (Auto) 700 Eos # (Auto) 600 H Baso # (Auto) 0 Sodium 135 L Potassium 3.6 Chloride 95 L Carbon Dioxide 32 BUN 5 L Creatinine 0.90 Estimated GFR > 60.0 BUN/Creatinine Ratio 5.6 L Glucose 79 Calcium 8.4 Assessment & Plan Assessment & Plan narrative: 57-year-old female postoperative day 5 from exploratory laparotomy with ileocecectomy and ileocolonic anastomosis who shows no evidence of any infectious complications or other issues currently. She is having slow return of bowel function with slow resolution of her anticipated postoperative ileus. We will advance her to a full liquid diet. Out of bed as tolerated. Continue pulmonary toilet. She may shower. At insure supplementation for nutritional support. 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 Continue Zosyn for now, but I anticipate we will be able to stop this within the next 1-2 days. Her white blood cell count remains normal. No evidence of postoperative hemorrhage. Hopefully she will be stable for discharge in the next 48-72 hours. I discussed this with her. All questions were answered to her satisfaction, and she voiced understanding. Orders were written.
[2018-07-25] MEDS: OXYCODONE IR 5 MG TABLET PO ×5 (10:56→23:47)
[2018-07-25] MEDS: NICOTINE 14 PATCH 14 MG TOP (10:57)
[2018-07-25] MEDS: KETOROLAC 15 MG/ML VIAL IV ×2 (10:58→23:50)
--- NOTE | 2018-07-25 11:22 | PT.IPTN ---
Current Diagnoses Chronic vascular disorders of intestine (07/20/18) Surgery Performed Operation Date: 07/20/18 16:50 Actual Procedures p Exploratory Laparotomy, Illeocecectomy, Illeocolonic anastomosis - Rayshawn Gutierrez MD Physical Therapy Treatment Note M2 PT-IP Current Condition Start: 07/21/18 13:21 Freq: NEEDED Status: Active Protocol: Document 07/21/18 11:58 RCC (Rec: 07/21/18 13:34 RCC [email or web address]) Physical Therapy Current Condition Current Condition Evaluation Date 07/21/18 Treatment Diagnosis ex. lap. ileocecectomy 07/20/18, impaired activity tolerance and gait Onset Date 07/20/18 Precautions Abdominal Surgery Precautions Log Roll Lifting Restrictions Gait Belt above Incisional Area Other Precautions still currently with epidural on evaluation 07/21/18 M3 PT-IP Subjective Start: 07/21/18 13:21 Freq: NEEDED Status: Active Protocol: Document 07/25/18 11:09 (Rec: 07/25/18 11:22 [id number]) Subjective Physical Therapy Visit Type Type Treatment Note Visit Start Time 09:20 Visit Stop Time 09:45 Total Visit Minutes 25 Number of GAUGER CHIEF DELIVERY Visits 1 Physical Therapy Visit Comments Patient Comments Pt reports occasional abdominal pain/cramps but feeling better every day. Ready for PT. Therapy Pain Assessment Pain When Pain Assessed During Mobility Pain Present Pain Present Pain Reported Location abd Intensity 4 Scale Used Numeric (1 - 10) M4 PT-IP Mobility and Gait Start: 07/21/18 13:21 Freq: NEEDED Status: Active Protocol: Document 07/25/18 11:09 (Rec: 07/25/18 11:22 [id number]) PT-Bed Mobility Assessment Supine to Sit Supine to Sit Standby Assistance Head of Bed Elevated Scooting Scooting to Edge of Bed Standby Assistance PT-Transfer Assessment Sit to and From Stand Sit to and from Stand Standby Assistance Equipment Transfer Assistive Device Gait Belt Transfers Transfer Destination Chair Transfer Technique walked Transfer Ability Level of Assist Contact Guard Assistance Comments Mobility Comments Pt steady on feet and hopin to walk with no AD, completed stand pivot txs safely with no AD and CGA-SBA. Gait Assessment Gait Gait Assistance Required: Contact Guard Assist Distance (Feet) 120 Assistive Devices Assistive Device Gait Belt Gait Deviations General Gait Pattern Antalgic Decreased Stride Length Decreased Feet Clearance Flexed Trunk Narrow Based Gait Factors Limiting Gait Function Factors Limiting Gait Function Decreased Activity Tolerance Decreased Strength Pain Comments Gait Comments Gait training with no AD and SBA-CGA with slow, gaurded gait but very steady and no LOB, cues for posture. Stair Climbing Assessment Comments Stair Climbing Comments not tested PT-Balance Assessment Sitting Balance and Reactions Static Sitting Balance Ability Normal Dynamic Sitting Balance Ability Good Standing Balance and Reactions Static Standing Balance Ability Good Dynamic Standing Balance Ability Good Device Used FWW M5 PT-IP Objective Assessments Start: 07/21/18 13:21 Freq: NEEDED Status: Active Protocol: Document 07/21/18 11:58 RCC (Rec: 07/21/18 13:34 RCC [email or web address]) Orientation Orientation/Cognition Level of Alertness Alert Orientation Name Age Birthday Month Date Year Day of Week Place Situation Language Function Ability No Deficits Noted Safety Awareness Understands Safety Issues Memory Description No Deficits Noted Strength Lower Extremity Strength Ankle DF 5/5 Comments Strength Comments LE MMT not performed d/t surgery- able to perform light SLR to clear heels off of bed . Coordination Assessment Gross Coordination Gross Coordination WNL Sensation Assessment Sensation Gross Sensation WNL Light Touch Intact Muscle Tone Muscle Tone WNL Yes M6 PT-IP Treatment Start: 07/21/18 13:21 Freq: NEEDED Status: Active Protocol: Document 07/25/18 11:09 (Rec: 07/25/18 11:22 [id number]) Physical Therapy Treatment Exercises Exercises Ankle Pumps Gluteal Sets Quad Sets Seated Knee Flexion/Extension Education Education Provided Precautions Safety Other Treatments Other Treatment Performed Pt consistent with daily walking every 2-3 hours and doing ankle pumps every hour. M7 PT-IP Assessment and Plan Start: 07/21/18 13:21 Freq: NEEDED Status: Active Protocol: Document 07/25/18 11:09 (Rec: 07/25/18 11:22 [id number]) PT Summary Assessment and Plan Potential Rehabilitation Potential Excellent Status of Condition at Evaluation Evolving Summary Impairments Pain Strength Bed Mobility Transfers Gait Activity Tolerance Progress Towards Goals Progressing Toward Goals Slow Progress due to Pain Slow Progress due to Medical Issues Assessment Summary Pt progressing well, able to ambulate safely with no AD x 130 feet with slow gait, no LOB noted. Pt demonstrates good safety awareness and reports decreasing abdominal pain. Frequency of Treatment Frequency Of Treatment Once a Day Treatment Plan Other Recommendations and Next Treatment Pt to continue walking with [facility] staff every 2-3 hours, cleared for no AD as long as with staff. Recommendations To Nursing Amount of Assist Needed 1 Person Assist Discharge Recommendations PT Discharge Recommendations Home with Assistance Outpatient PT
[2018-07-25] MEDS: diphenhydrAMINE 50 MG/ML VIAL 25 MG IV (12:03)
--- NOTE | 2018-07-25 14:21 | CM.DPNOTE ---
Reviewed chart. Reviewed medical POC and DCP w/ KAYLA Dennison. Met w/pt this morning, her sister Monica was visiting at bedside. Reviewed the DCP as outlined by Dr Gutierrez and RN; DC likely Monday, f/u w/ Dr Gutierrez w/in the week and likely outpt PT referral. Pt aware and agreeable to this DCP and requests this BENEFITS ADVISOR not fax medical documentation that is not specifically requested by Seun w/[employer] P#[phone] F#[phone]. Pt confirms she plans to DC to a Hotel in [place] and will f/u w/ Dr Gutierrez w/in the week and ask for clearance to fly back home. Pt hopeful she can do outpt PT visits to assist in keeping her moving upon DC. Placed another call to Seun Mcdermott RN/medical insurance verifier w/ [employer]; she states Dr Gutierrez is not required to complete the Medical Examination Authorization form faxed to JOSTIN [place]. Dr Gutierrez is requested to include in his dictation (either prog note, DC summary or both) the restrictions that are expected for pt upon her DC. This should include information about return to work limitations, expectations for outpt f/u, referral for outpt PT if needed, and clearance for discharging to a hotel setting alone w/o assistance. Seun is concerned about pt's safety upon DC and hopes to be alerted if there are any addtl. DC needs that arise. Following closely in coordination w/pt's insurance co and employer [employer]. JOSTIN Vaughn
[2018-07-25 16:00] VITALS: BP 125/66; PULSE 66; RESP 19; TEMP 36.6; O2SAT 99
[2018-07-25] MEDS: SENNOSIDES 8.6 MG TABLET PO (21:22)
[2018-07-25] MEDS: DOCUSATE 100 MG CAPSULE PO (21:22)
[2018-07-25 23:47] VITALS: TEMP 37.4
[2018-07-25 23:50] VITALS: TEMP 37.6
[2018-07-26] VITALS (7 sets, daily range): BP systolic 112–135; BP diastolic 55–84; PULSE 66–83; RESP 16–20; TEMP 37.2–39.3; O2SAT 94–98
--- NOTE | 2018-07-26 | DI.RAD.S_ITS ---
PROCEDURE: XR ABDOMEN 3V INDICATIONS: distension, pain after colectomy TECHNIQUE: One view chest and two views of the abdomen were acquired. COMPARISON: [facility], CT, CT ABDOMEN PELVIS W CON, 07/20/2018, 14:49. FINDINGS: Surgical changes and devices: Skin haydee are noted in the lower abdomen and midline. Chest: Lungs are clear. Heart size is normal. No pleural effusions. No pneumoperitoneum. Abdomen: There is abundant small bowel and proximal colonic gas. Small bowel loops are mildly distended measuring up to 3.9 cm in diameter. There multiple air-fluid levels in mid abdomen. Relative paucity of distal colonic gas. No suspicious calcifications. Visualized solid organ contours appear normal. Bones: No suspicious bony lesions. IMPRESSION: Small bowel obstruction versus adynamic ileus. Dictated by: Pelon Bowles M.D. on 07/26/2018 at 9:05 Approved by: Pelon Bowles M.D. on 07/26/2018 at 9:10
[2018-07-26] MEDS: PIPERACILLIN-TAZO 3.375 GM/50 ML FROZ.PIGGY IV (04:15)
[2018-07-26] MEDS: OXYCODONE IR 5 MG TABLET PO ×2 (04:15→08:33)
[2018-07-26] MEDS: PANTOPRAZOLE 40 MG TABLET PO (08:34)
[2018-07-26] MEDS: GABAPENTIN 300 MG CAPSULE PO ×2 (08:34→20:29)
[2018-07-26] MEDS: KETOROLAC 15 MG/ML VIAL IV (08:34)
[2018-07-26] MEDS: DOCUSATE 100 MG CAPSULE PO ×2 (08:35→20:28)
[2018-07-26] MEDS: ENOXAPARIN 40 MG/0.4 ML SYRINGE SUBCUT (08:35)
--- NOTE | 2018-07-26 08:44 | PM.PN.1 ---
Subjective Date Patient Seen: 07/26/18 Time Patient Seen: 08:45 Interval history: Patient's pain is controlled with oxycodone but seems to only last 2-3 hours. She is also complaining of some itching with the Zosyn infusion. Last night symptoms were controlled with Benadryl. She denies any subjective fever or chills. No chest pain or shortness of breath. Beginning to ambulate more aggressively. Passing flatus. Small bowel movement yesterday but none since. No dysuria or hematuria. Tolerating full liquids without any issues. Feels less distended. Lower extremity edema feels less to her today as well. Exam Vital Signs (past 8 hours): Oxygen Delivery Method Room Air Oxygen Flow Rate 0 Narrative Exam Narrative: Well-nourished well-developed female in no acute distress. Alert oriented x3. She is sitting comfortably in a bedside chair eating her breakfast at the time of my visit. Remains afebrile now for over 24 hr. No tachycardia. Normal blood pressure. Adequate urine output. Chest clear to auscultation bilaterally with regular rate rhythm. No murmurs. No crackles or wheezes. No rashes today Abdomen is soft and less distended today. She does have some bowel sounds but not fully active as yet. Wound is clean, dry, and intact without erythema or ecchymosis. No drainage. Extremities show no clubbing or cyanosis. Her edema is diminished today including along the abdominal wall and genitalia. Objective Labs Result Diagrams: 07/25/18 04:45 07/25/18 04:45 Labs: Three-view abdominal x-ray series is still pending this morning. No new laboratory studies otherwise Assessment & Plan Assessment & Plan narrative: 57-year-old female now postoperative day 6 after laparotomy with ileocecectomy and ileocolonic anastomosis for cecal volvulus who is doing well. Her ileus is slowly resolving. We will therefore maintain her current bowel regimen but at scheduled milk of magnesia daily. Increase her oxycodone dosage for better analgesia. Advance to regular diet as tolerated. Continue Ensure supplementation. Continue physical therapy and ambulation as much as tolerated. We will evaluate for potential outpatient physical therapy following discharge. I am hopeful that she will be discharged from the hospital tomorrow if she continues to do well and remains afebrile. No evidence of any significant infectious complications so we will stop the Zosyn today. I do not suspect she had a true allergic reaction but possibly intolerant of the antibiotic. If she does well over the next 24 hr with no temperature off antibiotics then discharged home. She plans to stay at a local hotel here [facility] [place] [facility] and follow up with me next week. Afterwards she will be able to return to her home in [place] if she is stable. I discussed this with her, and she was agreeable to the plan. All questions were answered to her satisfaction.
[2018-07-26] MEDS: OXYCODONE IR 5 MG TABLET 10 MG PO ×5 (09:19→21:34)
[2018-07-26] MEDS: BISACODYL 10 MG SUPP PR (09:21)
--- NOTE | 2018-07-26 11:04 | PT.IPTN ---
Current Diagnoses Chronic vascular disorders of intestine (07/20/18) Surgery Performed Operation Date: 07/20/18 16:50 Actual Procedures p Exploratory Laparotomy, Illeocecectomy, Illeocolonic anastomosis - Rayshawn Gutierrez MD Physical Therapy Treatment Note M2 PT-IP Current Condition Start: 07/21/18 13:21 Freq: NEEDED Status: Active Protocol: Document 07/21/18 11:58 RCC (Rec: 07/21/18 13:34 RCC [email or web address]) Physical Therapy Current Condition Current Condition Evaluation Date 07/21/18 Treatment Diagnosis ex. lap. ileocecectomy 07/20/18, impaired activity tolerance and gait Onset Date 07/20/18 Precautions Abdominal Surgery Precautions Log Roll Lifting Restrictions Gait Belt above Incisional Area Other Precautions still currently with epidural on evaluation 07/21/18 M3 PT-IP Subjective Start: 07/21/18 13:21 Freq: NEEDED Status: Active Protocol: Document 07/26/18 10:47 SA (Rec: 07/26/18 11:04 SA [id number]) Subjective Physical Therapy Visit Type Type Treatment Note Visit Start Time 09:14 Visit Stop Time 09:48 Total Visit Minutes 34 Number of MANAGER WORK Visits 2 Physical Therapy Visit Comments Patient Comments Pt feeling a little better each day, ready for PT. Therapy Pain Assessment Pain When Pain Assessed During Mobility Pain Present Pain Present Pain Reported Location abd Intensity 3 Scale Used Numeric (1 - 10) Pain Management Techniques Modification of Treatment Timing of Activity with Medications M4 PT-IP Mobility and Gait Start: 07/21/18 13:21 Freq: NEEDED Status: Active Protocol: Document 07/26/18 10:47 SA (Rec: 07/26/18 11:04 [id number]) PT-Bed Mobility Assessment Rolling Type of Rolling Log Rolling Level of Assist Standby Assistance Supine to Sit Supine to Sit Standby Assistance Head of Bed Elevated Sit to Supine Sit to Supine Standby Assistance Scooting Scooting to Edge of Bed Standby Assistance Scooting Up and Down in Bed Standby Assistance PT-Transfer Assessment Sit to and From Stand Sit to and from Stand Standby Assistance Equipment Transfer Assistive Device Gait Belt Orthotic/Prosthetic Devices or Brace: Yes Transfers Transfer Destination Chair Transfer Technique walked Transfer Ability Level of Assist Standby Assistance Comments Mobility Comments Pt doing well with no AD, SBA with functional transfers, decreasing abdominal pain and improving strength. Gait Assessment Gait Gait Assistance Required: Standby Assistance Distance (Feet) 300 Assistive Devices Assistive Device Gait Belt Gait Deviations General Gait Pattern Antalgic Decreased Feet Clearance Factors Limiting Gait Function Factors Limiting Gait Function Decreased Activity Tolerance Pain Comments Gait Comments Improving gait speed and quality. Pt taking longer steps and no LOB noted, posture improved and pt doing wel with no AD. Stair Climbing Assessment Evaluation Level of Assist On Stairs Standby Assistance Devices Stair Climbing Assistive Devices Right Railing Technique/Endurance Stair Climbing Direction Ascend and Descend Stair Climbing Technique Step to Step Number of Steps Climbed 5 Query Text: Stair Climbing Set # Repetitions (reps) 1 Comments Stair Climbing Comments Used single step with R rail, pt able to step up/down safely from step 5x in a row with SBA and min cues. PT-Balance Assessment Sitting Balance and Reactions Static Sitting Balance Ability Normal Dynamic Sitting Balance Ability Good Standing Balance and Reactions Static Standing Balance Ability Good Dynamic Standing Balance Ability Good M5 PT-IP Objective Assessments Start: 07/21/18 13:21 Freq: NEEDED Status: Active Protocol: Document 07/21/18 11:58 RCC (Rec: 07/21/18 13:34 RCC [email or web address]) Orientation Orientation/Cognition Level of Alertness Alert Orientation Name Age Birthday Month Date Year Day of Week Place Situation Language Function Ability No Deficits Noted Safety Awareness Understands Safety Issues Memory Description No Deficits Noted Strength Lower Extremity Strength Ankle DF 5/5 Comments Strength Comments LE MMT not performed d/t surgery- able to perform light SLR to clear heels off of bed . Coordination Assessment Gross Coordination Gross Coordination WNL Sensation Assessment Sensation Gross Sensation WNL Light Touch Intact Muscle Tone Muscle Tone WNL Yes M6 PT-IP Treatment Start: 07/21/18 13:21 Freq: NEEDED Status: Active Protocol: Document 07/26/18 10:47 SA (Rec: 07/26/18 11:04 SA [id number]) Physical Therapy Treatment Education Education Provided Precautions Safety Other Treatments Other Treatment Performed Pt completed standing exercises of marching, heel raises and hip ABD with limited ROM d/t abdominal pain with movement. Pt tolerated well. Continues to perform seated ankle pumps, marching and glut sets on her own. M7 PT-IP Assessment and Plan Start: 07/21/18 13:21 Freq: NEEDED Status: Active Protocol: Document 07/26/18 10:47 SA (Rec: 07/26/18 11:04 [id number]) PT Summary Assessment and Plan Potential Rehabilitation Potential Excellent Status of Condition at Evaluation Evolving Summary Assessment Summary Pt progressing well with improved gait quality and speed, demonstrates safety with mobility without AD, consistent with IND exercises and ambulation. Frequency of Treatment Frequency Of Treatment Once a Day Treatment Plan Other Recommendations and Next Treatment Providing more extensive [facility] for patient to continue with during her 1 week hotel stay prior to travel home [place]. Pt concerned about losing strength during this recovery time. Provided education for walking program and strengthening program to maintain strength prior to travel. Recommendations To Nursing Amount of Assist Needed 1 Person Assist Discharge Recommendations PT Discharge Recommendations Home with Assistance Outpatient PT
[2018-07-26] MEDS: NICOTINE 14 PATCH 14 MG TOP (14:26)
[2018-07-26] MEDS: SENNOSIDES 8.6 MG TABLET PO (20:28)
[2018-07-26] MEDS: MAGNESIUM HYDROXIDE 30 ML UDC PO (20:28)
[2018-07-26] MEDS: ACETAMINOPHEN 325 MG TABLET 650 MG PO (21:00)
--- NOTE | 2018-07-26 21:15 | PC.NURSE ---
2114 - Patient noted to have temperature of 102.7. Given tylenol per orders. Notified telephone surveyor physician of temperature. See new order for levaquin.
[2018-07-26] MEDS: levoFLOXacin 500 MG/100 ML PIGGYBACK 100 MG IV (21:33)
[2018-07-27 00:32] VITALS: TEMP 37.6
[2018-07-27] MEDS: OXYCODONE IR 5 MG TABLET 10 MG PO ×7 (00:32→23:19)
[2018-07-27 00:39] VITALS: BP 100/49; PULSE 70; RESP 16; TEMP 37.6; O2SAT 94
[2018-07-27] MEDS: PANTOPRAZOLE 40 MG TABLET PO (07:42)
[2018-07-27 08:00] VITALS: BP 117/59; PULSE 75; RESP 16; TEMP 37.4; O2SAT 98
[2018-07-27] MEDS: MORPHINE 2 MG/ML INJ IV (09:20)
[2018-07-27] MEDS: GABAPENTIN 300 MG CAPSULE PO ×2 (10:00→20:01)
[2018-07-27] MEDS: DOCUSATE 100 MG CAPSULE PO ×2 (10:00→20:00)
[2018-07-27] MEDS: ENOXAPARIN 40 MG/0.4 ML SYRINGE SUBCUT (10:00)
--- NOTE | 2018-07-27 10:10 | P.PN_ITS ---
Subjective Date Patient Seen: 07/27/18 Time Patient Seen: 10:05 Interval history: Patient complaining of more incisional pain, erythema, and swelling near the umbilicus today. She has also had subjective fevers overnight. Documented maximal temperature was in excess of 102?. Denies any n ausea or vomiting however. She continues to pass significant flatus and copious liquid bowel movements including this morning. Tolerating a regular diet without nausea or vomiting. Other than the abdominal wall swelling and redness she denies any significant abdominal distention. She feels this is slowly improving. No dysuria or hematuria. Ambulating as well. Pain is controlled. Exam Vital Signs (past 8 hours): - 07/27/18 08:00 Temperature 99.3 F Pulse Rate 75 Respiratory Rate 16 Blood Pressure 117/59 L Pulse Oximetry 98 Oxygen Delivery Method Room Air Oxygen Flow Rate 0 Narrative Exam Narrative: Well-nourished well-developed thin female in no acute distress lying comfortably in bed this morning. Alert oriented x3. Patient seen and examined with the attending nurse, Marti Temperature curve is as above. Otherwise hemodynamically stable Adequate urine output Regular rate and rhythm. No wheezes Abdomen is soft and less distended. She is not tympanitic. However, she is focally tender at the superior aspect of the incision which shows progressive erythema and subcutaneous edema today. Area appears fluctuant as well. Extremities show no clubbing or cyanosis Objective Labs Result Diagrams: 07/25/18 04:45 07/25/18 04:45 Labs: No new laboratory or radiographic studies for review today Assessment & Plan Assessment & Plan narrative: 57-year-old female with resolving postoperative ileus as anticipated following her surgery. However, she has evidence of wound infection today based on examination and her recurrent fever. She did receive a dose of Levaquin last night. I removed the upper half of the haydee from the incision today at the bedside. There was purulent fluid, and culture was obtained. We will continue the Levaquin. Await culture results. Patient tolerated this quite well at the bedside actually. Wound is otherwise intact with no evidence of any hernia or fascial dehiscence. Wound bed was probed with sterile swabs and to ensure no undrained cavities. Wet-to-dry saline gauze dressing was applied at that point. We will continue twice daily dressing changes and as needed for soilage. Clearly she will need to be in the hospital at least another 2-3 days for antibiotics, culture results, and wound care. Otherwise will continue her current care. I discussed all this with her and her sister in detail today. My plan would be for discharge from the hospital early next week where she will stay in a hotel locally as planned. I will plan to have her see me or my nurse in the office daily thereafter for wound care. Once she is stable then she could potentially fly back to her home in [place]. We will try to contact her primary care physician prior to that so she is aware of the situation, and he or she can and facilitate a referral to a local surgeon there in [place]. I do not think she requires any further surgery, but she will need someone to attend to the wound. I discussed with the patient anticipated ongoing wound healing by secondary intention over the next several weeks. She understands that the scar may be cosmetically less desirable at this point as well. All questions were answered to her satisfaction, and she voiced understanding. Orders were written.
--- NOTE | 2018-07-27 10:41 | PT.IPTN ---
Current Diagnoses Chronic vascular disorders of intestine (07/20/18) Surgery Performed Operation Date: 07/20/18 16:50 Actual Procedures p Exploratory Laparotomy, Illeocecectomy, Illeocolonic anastomosis - Rayshawn Gutierrez MD Physical Therapy Treatment Note M2 PT-IP Current Condition Start: 07/21/18 13:21 Freq: NEEDED Status: Active Protocol: Document 07/21/18 11:58 RCC (Rec: 07/21/18 13:34 RCC [id number]) Physical Therapy Current Condition Current Condition Evaluation Date 07/21/18 Treatment Diagnosis ex. lap. ileocecectomy 07/20/18, impaired activity tolerance and gait Onset Date 07/20/18 Precautions Abdominal Surgery Precautions Log Roll Lifting Restrictions Gait Belt above Incisional Area Other Precautions still currently with epidural on evaluation 07/21/18 M3 PT-IP Subjective Start: 07/21/18 13:21 Freq: NEEDED Status: Active Protocol: Document 07/27/18 10:45 GGD (Rec: 07/27/18 11:41 GGD [id number]) Subjective Physical Therapy Visit Type Notes Pt independent in room. Per RN pt ambulating halls safely. Will D/C from PT per RN. Protocol: Document 07/27/18 10:45 GGD (Rec: 07/27/18 11:41 GGD [id number]) PT Summary Assessment and Plan Goals Bed Mobility Goal Independent Transfer Goal Independent Gait Goal Independent Gait Distance 300 Days to Meet Goals 7 Frequency of Treatment Frequency Of Treatment Discharge Recommendations To Nursing Amount of Assist Needed Independent Discharge Recommendations PT Discharge Recommendations Home with Assistance
--- NOTE | 2018-07-27 11:01 | PC.NURSE ---
Addendum entered by Marti Navarro R.N. 07/27/18 12:48: pt experiencing sharp intermittent pain RUQ rating 8 out of 10 worsening after wound drainage this morning. ice bag to abd and dilaudid 1mg IV given with pain mildly subsiding. visitors in room Original Note: Dr. Gutierrez in to see pt; removed haydee from upper half of incision and opened up incision. dark red purulent drainage poured out of opening. Dr. Gutierrez packed with moistened gauze. redness surrounding incision and area tender. pt ambulated around ICU halls x2.
[2018-07-27 11:13] LABS: Appearance Urine UA CLEAR; Bacteria Urine None Seen; Bilirubin Urine UA NEGATIVE (NEGATIVE); Color Urine UA YELLOW; Glucose Urine UA NEGATIVE (Negative); Ketones Urine UA NEGATIVE (NEGATIVE); Leukocyte Esterase Urine UA NEGATIVE (NEGATIVE); Nitrite Urine UA NEGATIVE (Negative); Occult Blood Urine UA NEGATIVE (Negative); Protein Urine UA NEGATIVE (Negative); RBC Urine None Seen (0-5/HPF); Urobilinogen Urine UA 0.2 E.U./dL (0.2); WBC Urine None Seen (0-5/HPF)
[2018-07-27 11:37] LABS: Culture Indicated Urine Cult Not Indicated; Urine Comments Microscopic Normal
[2018-07-27] MEDS: HYDROMORPHONE 2 MG INJ 1 MG IV (11:39)
[2018-07-27] MEDS: NICOTINE 14 PATCH 14 MG TOP (15:22)
[2018-07-27 16:00] VITALS: BP 102/61; PULSE 70; RESP 20; TEMP 37; O2SAT 97
[2018-07-27] MEDS: HYDROMORPHONE 1 MG INJ IV (17:21)
--- NOTE | 2018-07-27 17:50 | PC.NURSE ---
8480 - Dr. Ha in to see patient. Changed wet to dry dressing at bedside. Patient tolerated well.
[2018-07-27 20:00] VITALS: BP 105/58; PULSE 71; RESP 20; TEMP 36.8; O2SAT 97
[2018-07-27] MEDS: MAGNESIUM HYDROXIDE 30 ML UDC PO (20:00)
[2018-07-27] MEDS: SENNOSIDES 8.6 MG TABLET PO (20:01)
[2018-07-27] MEDS: levoFLOXacin 750 MG/150 ML PIGGYBACK 100 MG IV (20:45)
[2018-07-27 23:48] VITALS: BP 107/63; PULSE 64; RESP 16; TEMP 37.1; O2SAT 97
[2018-07-28] MEDS: PANTOPRAZOLE 40 MG TABLET PO (05:35)
[2018-07-28] MEDS: OXYCODONE IR 5 MG TABLET 10 MG PO ×6 (05:35→21:09)
[2018-07-28 07:38] VITALS: BP 117/69; PULSE 72; RESP 16; TEMP 36.6; O2SAT 93
[2018-07-28] MEDS: HYDROMORPHONE 1 MG INJ IV ×2 (09:28→21:08)
--- NOTE | 2018-07-28 10:27 | PC.NURSE ---
pt showered. Dr. Lacey called and asked if she wants to change drsg. drsg changed by nursing. old moistened 4x4 with dark purulent drainage on it. wound re-packed and abd drsg on. Dilaudid 1mg IV given for drsg changed. abd is less red compared to yesterday. red area marked
[2018-07-28] MEDS: GABAPENTIN 300 MG CAPSULE PO ×2 (12:13→21:06)
[2018-07-28] MEDS: ENOXAPARIN 40 MG/0.4 ML SYRINGE SUBCUT (12:13)
--- NOTE | 2018-07-28 12:18 | PM.PN.1 ---
Subjective Date Patient Seen: 07/28/18 Time Patient Seen: 12:18 Interval history: Inés reports she is feeling well today. She had a shower this morning and also had her dressing changed. She denies any abdominal pain. She reports that she has continued to pass flatus over the last 24 hr and had a diarrhea stool this morning. Exam Vital Signs (past 8 hours): - 07/28/18 07:38 Temperature 97.8 F Pulse Rate 72 Respiratory Rate 16 Blood Pressure 117/69 Pulse Oximetry 93 Oxygen Delivery Method Room Air Oxygen Flow Rate 0 Narrative Exam Narrative: Abdomen is soft with active bowel sounds. The wound is dressed and clean. Staff reports some dark colored purulent drainage when the dressing was changed. Cultures are still pending. Objective Labs Result Diagrams: 07/25/18 04:45 07/25/18 04:45 Assessment & Plan Assessment & Plan narrative: The patient is definitely defervesced over the last 24-48 hours. We will continue Levaquin for now. Advanced to a soft mechanical diet as the milk in the full liquid diet is likely to cause cramping and a bacterial overgrowth and the clear liquid diet lacks much nutrition.
[2018-07-28 15:33] VITALS: BP 111/59; PULSE 61; RESP 18; TEMP 36.9; O2SAT 97
--- NOTE | 2018-07-28 15:36 | CM.DPNOTE ---
Spoke w/ Seun w/ [employer] yesterday P#[phone], this MARINE ENGINEERING TEACHER used Dr Gutierrez's prog note dated 07.27.18 to discuss pertinent medical update and update to DC plan and needs. Seun appreciative and states she is faxing a form to this MARINE ENGINEERING TEACHER that will assist in authorizing pt's short term disability benefit. If MARINE ENGINEERING TEACHER team available to get this form started while pt is admitted it would be helpful, although , Seun explains this form can be completed by Dr Gutierrez and outpt RN upon her DC and during her outpt appt. It needs to be completed and signed by Dr Gutierrez before pt returns to [place]. Relayed all above w/pt and she was somewhat distressed this MARINE ENGINEERING TEACHER was sharing medical information w/ soaping machine back tender Seun. Reassured pt that this MARINE ENGINEERING TEACHER was sharing pertinent medical information that would allow Seun/ [employer] to authorize payment for the outpt services she required. Pt understands and appreciative. Pt asks how she gets a hard copy of all her medical information from (?) Disability Form received from Seun and is on MARINE ENGINEERING TEACHER desk. Dr Lacey covering this w/e, Dr Gutierrez will likely return Monday and MARINE ENGINEERING TEACHER can decide on next steps (re: completion of form inpt vs outpt?) at that time. Seun appreciates contact and communication re: pt's anticipated DC date and DC needs. This MARINE ENGINEERING TEACHER unable to address pt's question: How to get a hard copy of her medical record before return to [place] (?) Referral to medical records upon DC (?) JOSTIN Vaughn
[2018-07-28 20:57] VITALS: BP 112/63; PULSE 70; RESP 16; TEMP 37.2; O2SAT 96
[2018-07-28] MEDS: DOCUSATE 100 MG CAPSULE PO (21:05)
[2018-07-28] MEDS: SENNOSIDES 8.6 MG TABLET PO (21:06)
[2018-07-28] MEDS: SODIUM CHLORIDE 0.9% FLUSH 10 ML IV (21:10)
[2018-07-28] MEDS: levoFLOXacin 750 MG/150 ML PIGGYBACK 100 MG IV (21:10)
--- NOTE | 2018-07-28 22:26 | PC.NURSE ---
2100 - Pt up an ambulated multiple times this shift. Reports granular loose stool. PO meds given. Denies nausea. A-febril. Pre-medicated with 1mg of dilaudid prior to drsg change. Old drsg with small area of shadowing. Drainage rodas mixed with serosanguineous drainage. Repacked with one moist 4X4 gauze, covered with additional 4x4 and then abd pad secured with paper tape. Pt tolerated well. Reports feeling fatigued. Warm blankets provided. Abx infusing. Call light in reach.
[2018-07-28 23:12] VITALS: BP 117/67; PULSE 71; RESP 18; TEMP 37.6; O2SAT 95
[2018-07-29] MEDS: OXYCODONE IR 5 MG TABLET 10 MG PO ×6 (00:07→22:10)
[2018-07-29 05:38] LABS: Add Manual Diff / Slide Review NO; Basophils Absolute Auto 0 /uL (0-100); Basophils Percent Auto 0.7 % (0-2); Eosinophils Absolute Auto 400 /uL (0-450); Eosinophils Percent Auto 9.2 % (2-4); Hematocrit 27.7 % (36-46); Hemoglobin 9.3 g/dL (12.0-16.0); Lymphocytes Absolute Auto 1100 /uL (1100-4500); Lymphocytes Percent Auto 27.8 % (25-40); Mean Corpuscular HGB Conc 33.5 % (30-36); Mean Corpuscular Hemoglobin 31.5 PG (26-34); Mean Corpuscular Volume 93.8 fL (80-100); Monocytes Absolute Auto 800 /uL (0-900); Monocytes Percent Auto 20.2 % (3-14); Neutrophils Absolute Auto 1700 /uL (1500-7000); Neutrophils Percent Auto 42.1 % (50-75); Platelet Count 419 X10^3/uL (150-400); Red Blood Cell Count 2.95 X10^6/uL (4.0-5.2); Red Cell Distribution Width 14.1 % (11.6-14.8); White Blood Cell Count 4.1 X10^3/uL (4.5-11.0)
[2018-07-29 05:45] LABS: Alanine Aminotransferase 33 IU/L (9-52); Albumin Globulin Ratio 1.2 (1.0-2.8); Alkaline Phosphatase 69 U/L (38-126); Aspartate Aminotransferase 33 IU/L (14-36); BUN Creatinine Ratio 5.6 (6-22); Bilirubin Total 0.3 mg/dL (0.2-1.3); Blood Urea Nitrogen 5 mg/dL (7-17); Calcium 8.2 mg/dL (8.4-10.2); Carbon Dioxide 29 mmol/L (22-32); Chloride 98 mmol/L (98-107); Estimated Glomerular Filt Rate > 60.0 mL/min (>60); Globulin 2.6 g/dL (1.7-4.1); Glucose 82 mg/dL (70-100); HEMOLYSIS < 15 (0-50); Magnesium 2.1 mg/dL (1.6-2.3); Sodium 137 mmol/L (137-145); Total Protein 5.6 g/dL (6.3-8.2)
[2018-07-29 06:06] LABS: Potassium 3.8 mmol/L (3.4-5.1)
[2018-07-29 09:00] VITALS: BP 116/69; PULSE 77; RESP 16; TEMP 37.3; O2SAT 93
[2018-07-29] MEDS: HYDROMORPHONE 1 MG INJ IV ×2 (09:41→21:07)
[2018-07-29] MEDS: GABAPENTIN 300 MG CAPSULE PO (09:44)
[2018-07-29] MEDS: ENOXAPARIN 40 MG/0.4 ML SYRINGE SUBCUT (09:44)
[2018-07-29] MEDS: PANTOPRAZOLE 40 MG TABLET PO (09:44)
[2018-07-29] MEDS: SODIUM CHLORIDE 0.9% FLUSH 10 ML IV ×2 (09:45→21:05)
--- NOTE | 2018-07-29 13:02 | CM.DPC ---
DCP/continued: Reviewed chart. Patient remain hospitalized LOS day#9. LAWN MOWER SHARPENER met with patient to discuss d/c planning. Patient knows this LAWN MOWER SHARPENER from contact last week. Patient reports that she hopes to go to the [facility] when discharged from [facility]. Patient believes that all arrangements have been made through [employer] Kelby Mcdermott ph# [phone]. Notified patient that LAWN MOWER SHARPENER would confirm and touch base with Kelby tomorrow 07-30-18. Patient not expected to discharge today. Patient also inquiring on whether or not Dr. Gutierrez has completed paperwork sent by [employer] on Monday07-24-18 and additional paperwork on Monday07-27-18. Attempted to find out if paperwork had been completed but Dr. Gutierrez not rounding today and his office closed. Notified patient that LAWN MOWER SHARPENER would f/u tomorrow 07-30-18. P: Pending. Patient hopeful she will be able to go to [facility] prior to returning to [place]. CM team following closely. JOSTIN Montgomery
--- NOTE | 2018-07-29 14:47 | P.PN_ITS ---
Subjective Date Patient Seen: 07/29/18 Time Patient Seen: 14:45 Interval history: Mrs. Astorga reports she feels pretty well today. She tolerated her regular diet without a lot of difficulty. She did have a few episodes of cramping but they have resolved without treatment. She continues to have flatus and stool. Nothing more has come from her wound. She says her pain is really well controlled. Exam Vital Signs (past 8 hours): - 07/29/18 09:00 Temperature 99.1 F Pulse Rate 77 Respiratory Rate 16 Blood Pressure 116/69 Pulse Oximetry 93 Oxygen Delivery Method Room Air Oxygen Flow Rate 0 Narrative Exam Narrative: Abdomen is soft and minimally tender to palpation. 2-1/2 cm open area superiorly is beginning to granulate at its base. There is no grossly purulent drainage. The area outlined with sharpie as the line of demarcation has faded significantly. Objective Labs Result Diagrams: 07/29/18 05:10 07/29/18 05:10 Labs: Laboratory Results - last 24 hr 07/29/18 07/29/18 07/29/18 05:10 05:10 05:10 WBC 4.1 L RBC 2.95 L Hgb 9.3 L Hct 27.7 L MCV 93.8 MCH 31.5 MCHC 33.5 RDW 14.1 Plt Count 419 H Neut % (Auto) 42.1 L Lymph % (Auto) 27.8 Young % (Auto) 20.2 H Eos % (Auto) 9.2 H Baso % (Auto) 0.7 Neut # (Auto) 1700 Lymph # (Auto) 1100 Young # (Auto) 800 Eos # (Auto) 400 Baso # (Auto) 0 Sodium 137 Potassium 3.8 Chloride 98 Carbon Dioxide 29 BUN 5 L Creatinine 0.90 Estimated GFR > 60.0 BUN/Creatinine Ratio 5.6 L Glucose 82 Calcium 8.2 L Magnesium 2.1 Total Bilirubin 0.3 AST 33 ALT 33 Alkaline Phosphatase 69 Total Protein 5.6 L Albumin 3.0 L Globulin 2.6 Albumin/Globulin Ratio 1.2 Assessment & Plan Assessment & Plan narrative: Culture of the wound grew pansensitive Enterococcus durans. Continue Levaquin. Encourage activity and improved p.o. intake. At this point she is not taking enough orally to sustain herself o [facility].
[2018-07-29 16:01] VITALS: BP 130/66; PULSE 70; RESP 18; TEMP 36.9; O2SAT 96
--- NOTE | 2018-07-29 19:22 | PC.NURSE ---
Addendum entered by Lily Lubin R.N. 07/29/18 22:34: 2100 - Pt pre-medicated prior to drsg change. Increased abd distention today compared to yesterday. Wound bed with areas of sanford tissue. Gauze with saline. covered with abd pad. Pt wincing with continued cramping. No stool, taking a few ice chips. Kenny hose on. LE edema. HS held per MD order. Original Note: 1899 - Pt reports increased abd pain. Described as cramping, like when I came in. Pt reports pain 7 of 10, tearful eyes when cramping occurs. Denies nausea, denies belching. BT hyperactive, abd distended. Drsg CDI. VSS, A-febril. Cramping worsened following ambulation. Dr. Lacey notified of all of above. Reviewed RX, orders obtained. Orders reviewed with Pt. Asking appropriate questions.
[2018-07-29 19:31] VITALS: BP 121/75; PULSE 63; RESP 16; TEMP 37.1
[2018-07-29] MEDS: levoFLOXacin 750 MG/150 ML PIGGYBACK 100 MG IV (21:06)
--- NOTE | 2018-07-30 | DI.US.S_ITS ---
PROCEDURE: US PERIPH VENOUS LOW EXTREM BI INDICATIONS: POST-PO EDEMA TECHNIQUE: Real-time imaging, as well as color and pulse Doppler interrogation, were performed of the deep veins of both legs from the inguinal ligament to the popliteal fossa. COMPARISON: None. FINDINGS: The deep veins are normally compressible, and free of intraluminal thrombus. Color and pulse Doppler demonstrate normal phasic intravascular flow. There is normal augmentation response to distal compression maneuver. IMPRESSION: Edema is seen at the ankles bilaterally but no DVT is found. Dictated by: Connor Gibson M.D. on 07/30/2018 at 10:36 Approved by: Connor Gibson M.D. on 07/30/2018 at 10:37
[2018-07-30 05:09] VITALS: BP 107/63; PULSE 66; RESP 16; TEMP 36.3; O2SAT 93
--- NOTE | 2018-07-30 06:46 | PC.NURSE ---
Noc Note Pt is A&O, sleeping most of the shift, up independently to the bathroom, BT X4, pt reports mild discomfort across lower ABD, ABD is firm and distended. Drsg to ABD is CDI. BLE edema persists, JAIMEE in use. Pt has declined PRN pain medication so far this shift. Pt has remained NPO as ordered.
[2018-07-30 07:37] VITALS: BP 102/58; PULSE 82; RESP 16; O2SAT 97
[2018-07-30 08:00] VITALS: TEMP 36.9
[2018-07-30] MEDS: ENOXAPARIN 40 MG/0.4 ML SYRINGE SUBCUT (09:42)
[2018-07-30] MEDS: SODIUM CHLORIDE 0.9% FLUSH 10 ML IV ×2 (09:43→20:28)
--- NOTE | 2018-07-30 10:18 | PC.NURSE ---
Addendum entered by Asia Valladares R.N. 07/30/18 10:25: Dr Gutierrez in to see patient, dressing removed and changed by Dr Gutierrez. Pt continues to deny pain and nausea, placed back on regular diet. Original Note: Pt denies abdominal pain and nausea this am, remains NPO until seen by Dr Gutierrez.
--- NOTE | 2018-07-30 10:46 | PM.PN.1 ---
Subjective Date Patient Seen: 07/30/18 Time Patient Seen: 10:47 Interval history: patient had significant crampy abdominal pain last evening. She was placed on NPO status. She had no nausea or vomiting however. No subjective fever or chills. No chest pain or shortness of breath. Continues to complain of bilateral lower extremity edema. Currently she is hungry and wishes to eat. Abdominal pain has subsided. Continues to pass flatus and had large liquid bowel movement yesterday. No blood in stool. Exam Vital Signs (past 8 hours): - 07/30/18 05:09 07/30/18 07:37 07/30/18 08:00 Temperature 97.4 F L 98.5 F Pulse Rate 66 82 Respiratory Rate 16 16 Blood Pressure 107/63 102/58 L Pulse Oximetry 93 97 Oxygen Delivery Method Room Air Oxygen Flow Rate 0 Narrative Exam Narrative: She has been afebrile now for over 2 days. No tachycardia. Blood pressure normal sclera nonicteric regular rate and rhythm no wheezes or crackles abdomen is soft and minimally distended. She is appropriately tender around the incision but certainly has no guarding or rebound. No masses incision is clean. There is a minimal amount of fibrinous exudate at the base of the open wound superiorly. However no pus. No undrained pockets. Wound is otherwise granulating. Skin edges were viable. Erythema has completely resolved since opening the wound several days ago. Inferior aspect of the incision remains intact. Extremities show no clubbing or cyanosis. However, she has +1 edema to the lower thighs bilaterally with the right slightly greater than left. Objective Labs Result Diagrams: 07/29/18 05:10 07/29/18 05:10 Labs: No new laboratory or radiographic studies for review today. However, her laboratory studies from yesterday are as above in are entirely normal. Assessment & Plan Assessment & Plan narrative: 57-year-old female with resolving wound infection status post laparotomy with ileocecectomy and ileocolonic anastomosis who continues to improve. Her postoperative ileus has resolved. Her crampy abdominal pain appears to be related to mandaeism of bowel function. I will therefore allow her a regular diet today. Her acute on chronic moderate protein calorie malnutrition is stable. Continue Ensure supplementation with meals. Out of bed and ambulate. Nevertheless, she may have an occult DVT given the persistent bilateral lower extremity edema. Ultrasound has been ordered to check venous duplex. Continue compression stockings and ambulate as tolerated. We discussed wound care. Furthermore, we discussed treatment disposition, especially after she returns to her home in [place]. I also reviewed again the intraoperative findings and her pathology. Illustrations were provided for her benefit as well. Continue Levaquin. I personally changed her wet-to-dry dressing today with findings as above. Continue this as an outpatient. Anticipate discharge home tomorrow if she tolerates her diet and has ongoing bowel function and the ultrasound is negative for venous thromboembolism. All questions answered to her satisfaction, and she voiced understanding. She was agreeable to the plan. Orders written. Case reviewed with the attending nurse.
--- NOTE | 2018-07-30 10:51 | P.PN_ITS ---
Subjective Date Patient Seen: 07/30/18 Time Patient Seen: 10:47 Interval history: patient had significant crampy abdominal pain last evening. She was placed on NPO status. She had no nausea or vomiting however. No subjective fever or chills. No chest pain or shortness of breath. Continues to complain of bilateral lower extremity edema. Currently she is hungry and wishes to eat. Abdominal pain has subsided. Continues to pass flatus and had large liquid bowel movement yesterday. No blood in stool. Exam Vital Signs (past 8 hours): - 07/30/18 05:09 07/30/18 07:37 07/30/18 08:00 Temperature 97.4 F L 98.5 F Pulse Rate 66 82 Respiratory Rate 16 16 Blood Pressure 107/63 102/58 L Pulse Oximetry 93 97 Oxygen Delivery Method Room Air Oxygen Flow Rate 0 Narrative Exam Narrative: She has been afebrile now for over 2 days. No tachycardia. Blood pressure normal sclera nonicteric regular rate and rhythm no wheezes or crackles abdomen is soft and minimally distended. She is appropriately tender around the incision but certainly has no guarding or rebound. No masses incision is clean. There is a minimal amount of fibrinous exudate at the base of the open wound superiorly. However no pus. No undrained pockets. Wound is otherwise granulating. Skin edges were viable. Erythema has completely resolved since opening the wound several days ago. Inferior aspect of the inci maxwell remains intact. Extremities show no clubbing or cyanosis. However, she has +1 edema to the low er thighs bilaterally with the right slightly greater than left. Objective Labs Result Diagrams: 07/29/18 05:10 07/29/18 05:10 Labs: No new laboratory or radiographic studies for review today. However, her laboratory studies from yesterday are as above in are entirely normal. Assessment & Plan Assessment & Plan narrative: 57-year-old female with resolving wound infection status post laparotomy with ileocecectomy and ileocolonic anastomosis who co ntinues to improve. Her postoperative ileus has resolved. Her crampy abdominal pain appears to be related to mosque of bowel function. I will therefore allow her a regular diet today. Her acute on chronic moderate protein calorie malnutrition is stable. Continue Ensure supplementation with meals. Out of bed and ambulate. Nevertheless, she may have an occult DVT given the persistent bi lateral lower extremity edema. Ultrasound has been ordered to check venous duplex. Continue compression stockings and ambulate as tolerated. We discussed wound care. Furthermore, we discussed treatment disposition, especially after she returns to her home in [place]. I also reviewed again the intraoperative findings and her pathology. Illustrations were provided for her benefit as well. Continue Levaquin. I personally changed her wet-to-dry dressing today with findings as above. Continue this as an outpatient. Anticipate discharge home tomorrow if she tolerates her diet and has ongoing bowel function and the ultrasound is negative for venous thromboembolism. All questions answered to her satisfaction, and she voiced understanding. She was agreeable to the plan. Orders written. Case reviewed with the attending nurse.
[2018-07-30 15:34] LABS: Clostridium Difficile Tox PCR Negative for C. diff
[2018-07-30 18:00] VITALS: BP 124/72; PULSE 61; RESP 18; TEMP 36.8
[2018-07-30] MEDS: HYDROMORPHONE 1 MG INJ IV (19:10)
--- NOTE | 2018-07-30 19:46 | PC.NURSE ---
Dressing changed per orders, pt tolerated well. Small amount of serosang drainage. Distal part of incision remains well approximated with haydee. Discussed plan of care with Dr. Gutierrez, he is aware and has signed off on pt traveling across country back home to [place] via airplane on Friday 08/04. Pt will D/C tomorrow and will follow up with his office for dressing changes daily on before traveling home. Pt's brother is flying into town to assist pt in flying back to [place]. No abd pain or nausea. Ate 50% of dinner.
[2018-07-30] MEDS: SENNOSIDES 8.6 MG TABLET PO (20:26)
[2018-07-30] MEDS: MAGNESIUM HYDROXIDE 30 ML UDC PO (20:27)
[2018-07-30] MEDS: DOCUSATE 100 MG CAPSULE PO (20:27)
[2018-07-30] MEDS: GABAPENTIN 300 MG CAPSULE PO (20:27)
[2018-07-30] MEDS: levoFLOXacin 750 MG/150 ML PIGGYBACK 100 MG IV (20:27)
--- NOTE | 2018-07-31 05:16 | PC.NURSE ---
Addendum entered by Lily Lubin R.N. 07/31/18 06:41: 0610 - Pt awake. Up independently in the room. Denies pain. Denies nausea. Quinten CDI. VSS. Original Note: 0500 - Pt continues to rest soundly. 0000 - Pt resting quietly. Resp rate even and relaxed. No s/s of distress. Monitor.
[2018-07-31 06:15] VITALS: BP 111/65; PULSE 64; RESP 16; TEMP 37.1; O2SAT 94
[2018-07-31] MEDS: PANTOPRAZOLE 40 MG TABLET PO (06:21)
[2018-07-31 07:59] VITALS: BP 97/58; PULSE 61; RESP 18; TEMP 36.8; O2SAT 97
[2018-07-31] MEDS: GABAPENTIN 300 MG CAPSULE PO (08:25)
[2018-07-31] MEDS: ENOXAPARIN 40 MG/0.4 ML SYRINGE SUBCUT (08:25)
[2018-07-31] MEDS: DOCUSATE 100 MG CAPSULE PO (08:25)
[2018-07-31] MEDS: SODIUM CHLORIDE 0.9% FLUSH 10 ML IV (08:26)
[2018-07-31] MEDS: HYDROMORPHONE 1 MG INJ IV (11:01)
--- NOTE | 2018-07-31 12:38 | P.DS_ITS ---
History of Present Illness Date Patient Seen: 07/31/18 Time Patient Seen: 12:35 Chief complaint: ABDOMINAL CRAMPS Narrative: 57-year-old otherwise healthy female who presents to the emergency department with a 10 hr history of progressive abdominal pain. States that the pain is mostly in the central abdomen and she has associated significant abdominal distention. She has had nausea since the onset of her symptoms but no vomiting. Nevertheless she has been relatively anorexic with her last meal being yesterday evening some time. She is only drink black coffee throughout the day today but stopped drinking any liquids at approximately 9:00 a.m. this morning. Since that time she has had progressive distention and pain. Pain is now unrelenting and described as quite sharp in the central abdomen. She has some associated cramping pain as well. Her last bowel movement was yesterday which she reports as normal. She has not moved her bowels today nor she passing flatus over the last 6-8 hours. No subjective fever or chills. No dysuria or hematuria. No chest pain or shortness of breath. She has never had any similar episodes in the past. Discharge Providers Date of admission: 07/20/18 16:32 Discharge Date: 07/31/18 Consults: 07/20/18 20:30 Consult to Physical Therapy Evaluate & Treat Comment: Physician Instructions: Evaluate and Treat 07/26/18 08:42 Consult to Discharge Planning Routine Comment: Possible outpatient physical therapy Discharge provider: Rayshawn Gutierrez MD Summary Discharge Diagnosis: 1. Acute cecal volvulus 2. Serrated adenoma of the cecum on final pathology. She will need full colonoscopy 6-12 months from now in light of these findings. Patient is informed of such and I have reviewed this with her. 3. Exploratory laparotomy with ileocecectomy and ileocolonic anastomosis July 20, 2018 4. Postoperative superficial wound infection drained at bedside postoperative day 7. Cultures demonstrated Enterococcus durans and Bacteroides thetaomicron. 5. Tobacco use 6. Postoperative ileus, which is not unanticipated given the nature of her disease and surgery, subsequently resolved 7. Acute on chronic moderate protein calorie malnutrition, improving 8. Normal appendix on final pathology 9. Placement of epidural pain catheter at time of surgery for postoperative analgesia per the anesthesiology service 10. Tobacco withdrawal controlled with Nicoderm patch 11. Postoperative lower extremity edema without evidence of DVT on duplex ultrasound. Edema likely secondary to simple fluid sequestration following surgery, now resolved. Hospital Course: Patient was taken urgently from the emergency department at [facility] in [place], [place] on July 20, 2018 for surgery as above. She tolerated the procedure well. Postoperatively she was taken to the intensive care unit per hospital policy for management of her epidural pain catheter. The catheter worked well for the 1st 2 days or so after surgery and was discontinued after being dislodged during bedside mobilization. She was subsequently maintain on Dilaudid [employer] with the addition of Toradol and gabapentin. She was able to tolerate clear liquids shortly after surgery but her diet was not advanced as she remained distended without bowel function as anticipated consistent with her known postoperative ileus. Her ileus eventually resolved as anticipated without any issues and her diet was eventually graduated to regular which she is tolerating at the time of discharge. She has also had return of spontaneous bowel bladder function without any issues. As her diet was advanced she was weaned from the Dilaudid [employer] and maintained on oral oxycodone in addition to the gabapentin which will be her home regimen at discharge. She was seen by the dietary services with evidence of protein calorie malnutrition as above. She was maintained on Ensure supplementation and is improving nicely at the time of discharge. She is ambulating unassisted as well. By postoperative day 5 she was still having fevers and by postoperative day 7 had evidence of erythema and fluctuance at the superior aspect of her incision. Skin haydee were removed for a portion of the incision and the wound was drained. Fascia is intact. Skin edges were viable. She was begun on daily wet-to-dry saline gauze dressing changes which she tolerated well at the bedside. Cultures showed bacteria as above which responded nicely to Levaquin. She did have evidence of some tobacco withdrawal which was controlled with Nicoderm patches. Because her overall improved condition she is discharged from the hospital to a local hotel where she will reside over the next several days before returning home to [place]. She will be seen in the office for wound care until that time. I have reviewed all of her activity restrictions which are documented in her discharge instructions as well. Forms for her employer have also been completed to that nature and return to their home office as per the patient's request. Patient has been provided copies of those forms as well. When she returns to [place] later this week I would have her follow up with her primary care physician, Dr. Jian Lechuga. Unfortunately I have been unable to contact him via telephone after multiple attempts over the last several days. She may require surgical follow up at his referral as well for dressing changes. We will continue to make attempts at contacting him. Patient is also initiating these efforts. She will contact me or return to the clinic sooner before her departure home if she has any fever, chills, nausea, vomiting, lack of bowel function, progressive abdominal pain, abdominal distention, further wound drainage, or inability to tolerate a diet. All questions were otherwise answered to her satisfaction, and she voiced understanding. Status at Discharge Cognitive/behavioral status at discharge: oriented Functional status at discharge: independent ambulation Overall status at discharge: patient is progressing back to baseline Time Spent with Patient Greater than 30 minutes Time spent discussing smoking cessation with patient: 3 to 10 minutes Exam Vital Signs (past 8 hours): - 07/31/18 06:15 07/31/18 07:59 Temperature 98.7 F 98.3 F Pulse Rate 64 61 Respiratory Rate 16 18 Blood Pressure 111/65 97/58 L Pulse Oximetry 94 97 Oxygen Delivery Method Room Air Oxygen Flow Rate 0 Narrative Exam Narrative: Well-nourished well-developed but somewhat thin female in no acute distress. Alert oriented x3. She is in excellent spirits Sclera nonicteric Neck is supple without lymphadenopathy. Trachea is midline Chest clear to auscultation bilaterally with regular rate rhythm. No murmurs, gallops, rubs. No crackles or wheezes. No flank tenderness Abdomen is soft and nondistended. Appropriately tender at the incision but certainly without guarding or rebound. No masses. No ascites. Active bowel s ounds. She is not tympanitic. Wound is clean without drainage. Skin edges are completely viable without erythema or significant edema. Fascia is intact. No purulent drainage. Inferior aspect of the incision remains completely intact with haydee still in place to be removed in the clinic later this week. Extremities show no clubbing or cyanosis. Trace residual bilateral ankle edema. Objective Labs Result Diagrams: 07/29/18 05:10 07/29/18 05:10 Labs: Laboratory Results - last 24 hr 07/30/18 13:00 C. difficile Tox (PCR) Negative for c. diff Discharge Plan Discharge Plan Patient Disposition: Home Discharge comment: You may plan to return to your home in [place] Saturday August 04, 2018 by airline Discharge Med Rec/Prescriptions Prescriptions: New acetaminophen [Tylenol] 325 mg capsule 650 mg PO Q6H PRN (Reason: fever or pain) Qty: 60 RF: 1 docusate sodium 100 mg tablet 100 mg PO BID Qty: 14 RF: 1 gabapentin 300 mg capsule 300 mg PO BID Qty: 14 RF: 0 nicotine [Nicoderm CQ] 14 mg/24 hr patch 24 hour 1 patch Transdermal DAILY Qty: 7 RF: 0 oxycodone 5 mg Tablet 10 mg PO Q4H PRN (Reason: Pain, Moderate (4-6)) Qty: 30 RF: 0 sennosides 8.6 mg tablet 8.6 mg PO BEDTIME Qty: 7 RF: 1 levofloxacin [Levaquin] 750 mg tablet 750 mg PO DAILY Qty: 4 RF: 0 gauze bandage 4 X 4 bandage .ROUTE .MEDSUPPLY Qty: 10 RF: 0 Follow up/Referrals: Rayshawn Gutierrez MD [Physician] - 08/01/18 10:00 am Provider Discharge Instructions Diet: Diet as Tolerated Activity: No driving while taking opioid pain medication No lifting more than 20 lb for a total of 4 weeks from surgery May ride in vehicle May walk as much as desired May climb stairs Cold/Heat Therapy: May apply ice pack to incision as needed for comfort Other treatments: Change gauze dressing at least once daily and as needed for soilage Surgery office will perform wet-to-dry dressing change once daily in the clinic for next 3 days Office staff will remove remaining skin haydee in surgery Clinic around Monday Skin/Wound/Dressing Care Report to your healthcare provider any signs of infection, such as:: chills, fever, night sweats, increased pain, unusual drainage and unusual redness Dressing: See above Other wound treatment: Do not soak incision in bathtub or pool until skin is completely closed Discharge Data Attending Provider: Rayshawn Gutierrez Admit Date/Time: 07/20/18 16:32
--- NOTE | 2018-07-31 14:35 | CM.DPC ---
DCP/continued: Reviewed chart. Received notification that patient medically cleared for d/c today. Current plan is for patient to d/c to local [facility] ([place]) and do daily dressings changes at Dr. Gutierrez's office until she plans to return to [place] on Monday08-04-18. Met with patient and she is aware and agreeable to plan. Patient up in room I and does not currently have any d/c concerns. Patient requesting that d/c summary be faxed to [facility] at [phone]. D/C summary faxed and [employer] placed call to [facility] to provide her with verbal update. P: Patient discharging from [facility] today. Patient plans to return to [place] on Monday08-04-18. JOSTIN Montgomery
--- NOTE | 2018-07-31 15:16 | PC.NURSE ---
Discharge Note Discharged at 1440 with friend, escorted to hospital exit by staff member. Contacts left in room and pt called, msg left. Contacts at [facility] for pt to tile picker at appt tomorrow at 10am. Dressing to abdomen changed at 1100 and dressing supplies sent with pt.
== END 2018-07-31 14:40 | disposition home or self-care (01) | DRG 221 ==
LOC: ED 16:32 → AC 16:34 → ICU 20:55
PROVIDERS: Emergency Medicine; Specialist; Surgery; Admitting Provider Surgery; Emergency Provider Nurse Practitioner Family; Visit Provider Surgery
PROC: 0DBH0ZZ Excision of Cecum, Open Approach (ICD-10-PCS; CPT 49000; principal; 2018-07-20 16:50)
DX: K55.1 Chronic vascular disorders of intestine (principal); F17.200 Nicotine dependence, unspecified, uncomplicated; K56.7 Ileus, unspecified; T81.49XA Infection following a procedure, other surgical site, initial encounter; D12.0 Benign neoplasm of cecum; R60.0 Localized edema; Z68.20 Body mass index [BMI] 20.0-20.9, adult; E44.0 Moderate protein-calorie malnutrition; R00.1 Bradycardia, unspecified
CPT/HCPCS: 36415; 36591; 44160; 74021; 74177; 80048; 80053; 81001; 81003; 81015; 81025; 82150; 82550; 82553; 83605; 83690; 83735; 84145; 84484; 84702; 85025; 86850; 86900; 86901; 87070; 87075; 87077; 87086; 87186; 87205; 87493; 87797; 93005; 93010; 93970; 94762; 96361; 96374; 96375; 96376; 97110; 97116; 97162; 97530; 99222; 99283; 99285; 99406; C9113; J0330; J1100; J1170; J1200; J1650; J1885; J1940; J1956; J2250; J2270; J2405; J2543; J2704; J3010; Q9967